=== PATIENT | female | born 1955 | race Caucasian/White ===

== ENCOUNTER 2016-11-23 08:25 | Emergency (ER) | payer MEDICAID, OTHER ==
[2016-11-23 08:36] VITALS: BP 162/97
[2016-11-23] MEDS ORDERED: Sodium Chloride 0.9% 10 ML Syringe FLUSH PRN (09:02)
--- NOTE | 2016-11-23 11:00 | EDM.PDOC ---
ED HPI GENERAL MEDICAL PROBLEM - General Chief Complaint: Abdominal Pain Stated Complaint: DIZZINESS/EAR PAIN/STOMACH PAIN Time Seen by Provider: 11/23/16 08:55 Source of Information: Reports: Patient History Limitations: Reports: No Limitations - History of Present Illness INITIAL COMMENTS - FREE TEXT/NARRATIVE: The patient presents with a few complaints. She has dizziness where she is a little off balance, left ear pain, epigastric abdominal pain and some anxiety. She also has some sinus pressure. She denies fever, chills, cough, congestion, chest pain or shortness of breath. She is wondering is she has a sinus infection. She has no dysuria or diarrhea. Onset: Gradual Duration: Week(s): Location: Reports: Head Quality: Reports: Pressure Severity: Mild Improves with: Reports: None Worsens with: Reports: None Associated Symptoms: Denies: Chest Pain, Fever/Chills, Nausea/Vomiting, Shortness of Breath Abdominal Pain Score (Numeric/FACES): 5 - Related Data Allergies Allergy/AdvReac Type Severity Reaction Status Date / Time benzocaine Allergy Not Listed Verified 11/23/16 08:36 cortisone Allergy Red Rash Verified 11/23/16 08:36 venom-honey bee Allergy Redness Verified 11/23/16 08:36 [bee venom (honey bee)] and Swelling Corepivicaine Allergy Not Listed Uncoded 06/19/15 14:57 isocaine 2% w/Levonordefien Allergy Not Listed Uncoded 06/19/15 14:57 1:20K Home Meds: Home Meds ALPRAZolam [Xanax] 0.5 mg PO DAILY PRN 06/19/15 [History] Dicyclomine [Bentyl] 20 mg PO DAILY PRN 06/19/15 [History] ALPRAZolam [Xanax] 0.5 mg PO QID PRN #20 tablet 11/23/16 [Rx] Meclizine [Antivert] 25 mg PO Q6H PRN #20 tablet 11/23/16 [Rx] Past Medical History HEENT History: Reports: Other (See Below) Other HEENT History: dental history Psychiatric History: Reports: Anxiety Social & Family History - Tobacco Use Smoking Status *Q: Never Smoker Years of Tobacco use: 40 Packs/Tins Daily: 0.8 - Recreational Drug Use Recreational Drug Use: No ED ROS GENERAL - Review of Systems Review Of Systems: See Below Constitutional: Reports: No Symptoms HEENT: Reports: Other (Sinus pressure) Respiratory: Reports: No Symptoms Cardiovascular: Reports: No Symptoms Endocrine: Reports: No Symptoms GI/Abdominal: Reports: Nausea. Denies: Abdominal Pain, Vomiting : Reports: No Symptoms Musculoskeletal: Reports: No Symptoms Skin: Reports: No Symptoms Neurological: Reports: Dizziness, Headache Psychiatric: Reports: Anxiety ED EXAM, GI/ABD - Physical Exam Exam: See Below Exam Limited By: No Limitations General Appearance: Alert, No Apparent Distress Ears: Normal External Exam Nose: Normal Inspection Head: Atraumatic, Normocephalic Neck: Normal Inspection Respiratory/Chest: No Respiratory Distress, Lungs Clear, Normal Breath Sounds Cardiovascular: Regular Rate, Rhythm, No Edema, No Murmur GI/Abdominal: Soft, Non-Tender, No Organomegaly, No Mass Back Exam: Normal Inspection Extremities: Normal Inspection Neurological: Alert, Oriented, No Motor/Sensory Deficits EKG INTERPRETATION EKG Date: 11/23/16 Time: 09:13 Rhythm: NSR Rate (beats/min): 63 [place]: normal P-wave: present QRS: normal ST-T: normal QT: normal EKG Interpretation Comments: LVH Course - Vital Signs Last Recorded V/S: Last Vital Signs Temp 98.2 F 11/23/16 08:32 Pulse 75 11/23/16 08:32 Resp 18 11/23/16 08:32 BP 162/97 H 11/23/16 08:32 Pulse Ox 98 11/23/16 08:32 - Orders/Labs/Meds Orders: Active Orders 24 hr Category Date Time Status Cardiac Monitoring [RC] . DIRECTED Care 11/23/16 09:02 Active EKG Documentation Completion [RC] STAT Care 11/23/16 09:03 Active Peripheral IV Care [RC] . DIRECTED Care 11/23/16 09:03 Active Head wo Cont [CT] Stat Exams 11/23/16 09:03 Taken Sodium Chloride 0.9% [Saline Flush] Med 11/23/16 09:02 Active 10 ml FLUSH ASDIRECTED PRN Peripheral IV Insertion Adult [OM.PC] Stat Oth 11/23/16 09:02 Ordered Medication Orders Sodium Chloride (Saline Flush) 10 ml FLUSH ASDIRECTED PRN PRN Reason: Keep Vein Open Last Admin: 11/23/16 09:18 Dose: 10 ml Labs: Laboratory Tests 11/23/16 11/23/16 11/23/16 Range/Units 09:16 09:16 09:40 WBC 5.80 (3.98-10.04) K/mm3 RBC 5.10 (3.98-5.22) M/mm3 Hgb 16.3 H (11.2-15.7) gm/L Hct 46.2 H (34.1-44.9) % MCV 90.6 (79.4-94.8) fl MCH 32.0 (25.6-32.2) pg MCHC 35.3 (32.2-35.5) g/dl RDW Std Deviation 39.5 (36.4-46.3) fL Plt Count 326 (182-369) K/mm3 MPV 8.9 L (9.4-12.3) fl Neut % (Auto) 66.4 (34.0-71.1) % Lymph % (Auto) 22.4 (19.3-51.7) % [place] % (Auto) 9.8 (4.7-12.5) % Eos % (Auto) 0.5 L (0.7-5.8) Baso % (Auto) 0.9 (0.1-1.2) % Neut # (Auto) 3.85 (1.56-6.13) K/mm3 Lymph # (Auto) 1.30 (1.18-3.74) K/mm3 Edwards # (Auto) 0.57 H (0.24-0.36) K/mm3 Eos # (Auto) 0.03 L (0.04-0.36) K/mm3 Baso # (Auto) 0.05 (0.01-0.08) K/mm3 Sodium 134 L (136-145) mEq/L Potassium 3.9 (3.5-5.1) mEq/L Chloride 101 (98-107) mEq/L Carbon Dioxide 26 (21-32) mEq/L Anion Gap 10.9 (5-15) BUN 5 L (7-18) mg/dL Creatinine 0.8 (0.55-1.02) mg/dL Est Cr Clr Drug Dosing TNP Estimated GFR (MDRD) > 60 (>60) mL/min BUN/Creatinine Ratio 6.3 L (14-18) Glucose 109 (80-115) mg/dL Calcium 8.8 (8.5-10.1) mg/dL Total Bilirubin 0.9 (0.2-1.0) mg/dL AST 29 (15-37) U/L ALT 38 (14-59) U/L Alkaline Phosphatase 83 (46-116) U/L Troponin I < 0.017 (0.00-0.056) ng/mL Total Protein 7.4 (6.4-8.2) g/dl Albumin 4.1 (3.4-5.0) g/dl Globulin 3.3 gm/dL Albumin/Globulin Ratio 1.2 (1-2) Lipase 182 (73-393) U/L Urine Color Yellow (Yellow) Urine Appearance Clear (Clear) Urine pH 6.5 (5.0-8.0) Ur Specific [place] 1.010 (1.005-1.030) Urine Protein Negative (Negative) Urine Glucose (UA) Negative (Negative) Urine Ketones Negative (Negative) Urine Occult Blood Negative (Negative) Urine Nitrite Negative (Negative) Urine Bilirubin Negative (Negative) Urine Urobilinogen 0.2 (0.2-1.0) Ur Leukocyte Esterase Negative (Negative) Urine RBC 0-5 (0-5) /hpf Urine WBC 0-5 (0-5) /hpf Ur Epithelial Cells 0-5 (0-5) /hpf Urine Bacteria Rare (FEW) /hpf Urine Mucus Not seen (FEW) /hpf Meds: Medications Generic Name Dose Route Start Last Admin Trade Name Freq PRN Reason Stop Dose Admin Sodium Chloride 10 ml 11/23/16 09:02 11/23/16 09:18 Saline Flush FLUSH 10 ml ASDIRECTED PRN Administration Keep Vein Open - Re-Assessments/Exams Free Text/Narrative Re-Assessment/Exam: 11/23/16 11:00 I ordered labs, EKG, and head CT. Her head CT looks good. Her EKG looks good. Her labs all look good. Her troponin is negative. I will discharge her home. Departure - Departure Time of Disposition: 11:05 Disposition: Home, Self-Care 01 Condition: good Clinical Impression: Dizziness, Anxiety Abdominal pain Qualifiers: Abdominal location: left upper quadrant Qualified Code(s): R10.12 - Left upper quadrant pain - Discharge Information Prescriptions: ALPRAZolam [Xanax] 0.5 mg PO QID PRN #20 tablet PRN Reason: Anxiety Meclizine [Antivert] 25 mg PO Q6H PRN #20 tablet PRN Reason: Dizziness Referrals: Jerson Rosales MD [Primary Care Provider] - 1 Week Forms: ED Department Discharge Additional Instructions: Take the antivert as needed for dizziness and xanax as needed for anxiety. Take some pepcid daily for 1 week. Please return if you are worse or follow up with Dr Soto. - My Orders Last 24 Hours: My Active Orders 11/23/16 09:02 Cardiac Monitoring [RC] . DIRECTED Sodium Chloride 0.9% [Saline Flush] 10 ml FLUSH ASDIRECTED PRN Peripheral IV Insertion Adult [OM.PC] Stat 11/23/16 09:03 EKG Documentation Completion [RC] STAT Peripheral IV Care [RC] . DIRECTED Head wo Cont [CT] Stat - Assessment/Plan Last 24 Hours: My Active Orders 11/23/16 09:02 Cardiac Monitoring [RC] . DIRECTED Sodium Chloride 0.9% [Saline Flush] 10 ml FLUSH ASDIRECTED PRN Peripheral IV Insertion Adult [OM.PC] Stat 11/23/16 09:03 EKG Documentation Completion [RC] STAT Peripheral IV Care [RC] . DIRECTED Head wo Cont [CT] Stat
--- NOTE | 2016-11-25 11:14 | CT ---
Head CT Technique: Multiple axial sections through the brain were obtained. Intravenous contrast was not utilized. Comparison: No previous intracranial imaging. Findings: Ventricles along with basal cisterns and sulci over the convexities are within normal limits for the patient's age. No abnormal parenchymal densities are seen. No evidence of intracranial hemorrhage. No midline shift or mass effect is seen. Bone window settings were reviewed which show the visualized sinuses to appear clear. No acute calvarial abnormality is identified. Impression: 1. Nothing acute is identified on noncontrast head CT study. Diagnostic code #1 Agree with preliminary report issued by [facility] ([facility] preliminary report dictated on 11/23/16, 11:06 AM Central Time)
== END 2016-11-23 11:15 | disposition home or self-care (01) ==
LOC: JD.ED 08:25
DX: R42 Dizziness and giddiness (principal); R10.12 Left upper quadrant pain; F41.9 Anxiety disorder, unspecified; Z79.899 Other long term (current) drug therapy; Z88.8 Allergy status to other drugs, medicaments and biological substances; Z91.030 Bee allergy status
CPT/HCPCS: 36415; 70450; 80053; 81001; 83690; 84484; 85025; 93005; 99284; J7050

== ENCOUNTER 2017-05-31 11:02 | Emergency (ER) | payer OTHER ==
[2017-05-31 11:12] VITALS: BP 178/98
--- NOTE | 2017-05-31 11:22 | EDM.PDOC ---
ED HPI GENERAL MEDICAL PROBLEM - General Chief Complaint: General Stated Complaint: COLD ALL THE TIME Time Seen by Provider: 05/31/17 11:21 Source of Information: Reports: Patient History Limitations: Reports: No Limitations - History of Present Illness INITIAL COMMENTS - FREE TEXT/NARRATIVE: Patient is here today for a couple of very vague complaints. Her #1 complaint is that she just feels cold. She states that she was evaluated for this history of clinic by Dr. Carver performed lab work. She was called with these results and informed that they were normal except her hemoglobin was mildly elevated. Patient does have untreated hypertension. She was initially started on amlodipine for this in November [address] Marcelo Jasmine felt that this made her legs swell. Since that time she has not taken any medication for her blood pressure. She was prescribed Hydrochlorothiazide by Dr. Soto and recommended by Dr. Carver that she needs to start this but patient has not started this. Patient's lower extremity swelling is concerning to her. She is also on numerous supplements from a company called [employer] including a green tea supplement, such as essential fatty acids, immune digestive support with probiotic as well as Florajen. 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 She is also trying to get her home more organized. She moved [place] briefly and now is back in [place]. She states it is quite uncomfortable for her to live here she is closer to her ex- and feels that she relies on a more than she would like to. She currently resides at [place], would like to move out of [facility] she feels that she picks up on the energy of those around her and feels there are too many sick people living there. Patient states that she is unsure if she should come to the emergency room for evaluation but would like to discuss to see if it's appropriate or not. Abdomen Pain Score (Numeric/FACES): 1 - Related Data Allergies Allergy/AdvReac Type Severity Reaction Status Date / Time benzocaine Allergy Not Listed Verified 11/23/16 08:36 cortisone Allergy Red Rash Verified 11/23/16 08:36 venom-honey bee Allergy Redness Verified 11/23/16 08:36 [bee venom (honey bee)] and Swelling Corepivicaine Allergy Not Listed Uncoded 06/19/15 14:57 isocaine 2% w/Levonordefien Allergy Not Listed Uncoded 06/19/15 14:57 1:20K Home Meds: Home Meds Dicyclomine [Bentyl] 20 mg PO DAILY PRN 06/19/15 [History] ALPRAZolam [Xanax] 0.5 mg PO QID PRN #20 tablet 11/23/16 [Rx] [facility] 1 tab PO QID 05/31/17 [History] Past Medical History HEENT History: Reports: Other (See Below) Other HEENT History: dental history Gastrointestinal History: Reports: Irritable Bowel Syndrome Psychiatric History: Reports: Anxiety Social & Family History - Tobacco Use Smoking Status *Q: Current Every Day Smoker Years of Tobacco use: 30 Packs/Tins Daily: 0.5 - Caffeine Use Caffeine Use: Reports: Coffee, Tea - Recreational Drug Use Recreational Drug Use: No ED ROS GENERAL - Review of Systems Review Of Systems: See Below Constitutional: Denies: Fever, Chills, Weakness, Fatigue, Decreased Appetite, Weight Loss HEENT: Reports: No Symptoms Respiratory: Reports: No Symptoms Cardiovascular: Reports: Blood Pressure Problem, Edema. Denies: Chest Pain, Claudication, Dyspnea on Exertion, Palpitations, PND, Syncope Endocrine: Reports: No Symptoms GI/Abdominal: Reports: Abdominal Pain (Intermittent abdominal cramping due to her IBS.). Denies: Black Stool, Bloody Stool, Constipation, Diarrhea, Decreased Appetite, Nausea : Reports: No Symptoms Musculoskeletal: Reports: Back Pain (Chronic, sees Dr. Lazar/Chiropractor for this.) Skin: Reports: No Symptoms Neurological: Reports: No Symptoms Psychiatric: Reports: Anxiety Hematologic/Lymphatic: Reports: No Symptoms ED EXAM, GENERAL - Physical Exam Exam: See Below Exam Limited By: No Limitations General Appearance: Alert, WD/WN, Anxious Eye Exam: Bilateral Eye: PERRL Head: Atraumatic, Normocephalic Neck: Normal Inspection, Non-Tender, Full Range of Motion. No: Lymphadenopathy (L), Lymphadenopathy (R) Respiratory/Chest: No Respiratory Distress, Lungs Clear, Normal Breath Sounds, No Accessory Muscle Use Cardiovascular: Normal Peripheral Pulses, Regular Rate, Rhythm, No Murmur, No Rub, Other (1+ pitting edema to bilateral ankles) Peripheral Pulses: 2+: Carotid (L), Carotid (R), Radial (L), Radial (R), Posterior Tibial (L), Posterior Tibial (R), Dorsalis Pedis (L), Dorsalis Pedis ( R) GI/Abdominal: Normal Bowel Sounds, Soft, Non-Tender Extremities: Normal Inspection, Normal Range of Motion, Normal Capillary Refill Neurological: Alert, Oriented Psychiatric: Normal Affect, Anxious Skin Exam: Warm, Intact Course - Vital Signs Last Recorded V/S: Last Vital Signs Temp 97.4 F 05/31/17 11:11 Pulse 73 05/31/17 11:11 Resp 20 05/31/17 11:11 BP 178/98 H 05/31/17 11:11 Pulse Ox 100 05/31/17 11:11 - Re-Assessments/Exams Free Text/Narrative Re-Assessment/Exam: Patient is very anxious throughout exam. She notes that she has been on anxiety medication previously but she did not like the way made her feel. Discussed using something like lavender essential oils and her infuser to help with this as well. She does have mild lower extremity swelling, patient is quite sedentary so we discussed that walking would help this as well. It will also help with her blood pressure. Patient was given a prescription for compression stockings to wear daily as well. She is advised to elevate her legs 30 minutes throughout the day above her heart. Patient's blood pressure is elevated, she has not been taking her medication. I advised her that she needs to resume her hydrochlorothiazide 25 mg every single day in the morning. I did advise her that make her urinate more frequently. Explained to patient that this would help both with her lower extremity swelling as well as her blood pressure. She has a follow-up appointment scheduled with Dr. Soto in a couple weeks, she will follow up with him sooner if needed. She has fairly healthy diet, did advise her she may need to increase her portions if she desires to gain weight. Unclear cause for her feeling cold. It has been colder outdoors and she does go out to smoke. Pulses all 2+, skin warm, pink and dry. Advised smoking cessation and increased activity would help with this. Also quite thin so weight gain could help. Reviewed labwork from clinic yesterday, TSH/CMP normal. Hgb mildly increased at 16.3, she will work on smoking cessation and FU with PCP. 05/31/17 12:04 Departure - Departure Time of Disposition: 11:49 Disposition: Home, Self-Care 01 Condition: Good Clinical Impression: Lower extremity edema, Anxiety, Sensation of feeling cold Hypertension Qualifiers: Hypertension type: essential hypertension Qualified Code(s): I10 - Essential ( primary) hypertension - Discharge Information Instructions: Edema, Hypertension, [id number] Referrals: Romeo Carver [Primary Care Provider] - Forms: ED Department Discharge Additional Instructions: Wear compression stockings daily during the day, take off at night . You can pick these up with the prescription we gave you at [facility] [place]. Try to walk 30 minutes daily. Resume your hydrochlorothiazide 25mg daily. Consider lavender in your essential oil infuser, it will help with the anxiety. Work on smoking cessation. You can get extra help with this through [place] Quits 1.800.QUIT.NOW ( ) Keep your follow-up with Dr Soto. You may move this earlier or return to ER if needed.
== END 2017-05-31 12:00 | disposition home or self-care (01) ==
LOC: JD.ED 11:02
DX: I10 Essential (primary) hypertension (principal); R60.0 Localized edema; F41.9 Anxiety disorder, unspecified; Z88.8 Allergy status to other drugs, medicaments and biological substances; Z79.899 Other long term (current) drug therapy; F17.210 Nicotine dependence, cigarettes, uncomplicated
CPT/HCPCS: 99283

== ENCOUNTER 2017-06-25 15:14 | Emergency (ER) | payer OTHER ==
[2017-06-25 15:25] VITALS: BP 167/95
--- NOTE | 2017-06-25 15:54 | EDM.PDOC ---
ED HPI GENERAL MEDICAL PROBLEM - General Chief Complaint: Abdominal Pain Stated Complaint: STOMACH PAIN Time Seen by Provider: 06/25/17 15:43 Source of Information: Reports: Patient History Limitations: Reports: No Limitations - History of Present Illness INITIAL COMMENTS - FREE TEXT/NARRATIVE: Patient is here today for evaluation of lower abdominal pain. She states that she has had this intermittently in the past but it has been worse over the past few weeks. She states that was rather severe this morning and did improve with passing flatus and having a bowel movement. Patient states her pain is very mild and feels more like bloating currently. She does have a previous diagnosis of IBS. Bilateral Lower Abdomen Pain Score (Numeric/FACES): 8 - Related Data Allergies Allergy/AdvReac Type Severity Reaction Status Date / Time amlodipine Allergy Swelling Verified 06/25/17 15:30 benzocaine Allergy Not Listed Verified 05/31/17 12:36 cortisone Allergy Red Rash Verified 05/31/17 12:36 venom-honey bee Allergy Redness Verified 05/31/17 12:36 [bee venom (honey bee)] and Swelling Corepivicaine Allergy Not Listed Uncoded 05/31/17 12:36 isocaine 2% w/Levonordefien Allergy Not Listed Uncoded 05/31/17 12:36 1:20K Home Meds: Home Meds Dicyclomine [Bentyl] 20 mg PO DAILY PRN 06/19/15 [History] ALPRAZolam [Xanax] 0.5 mg PO QID PRN #20 tablet 11/23/16 [Rx] [facility] 1 tab PO QID 05/31/17 [History] Past Medical History HEENT History: Reports: Other (See Below) Other HEENT History: dental history Gastrointestinal History: Reports: Irritable Bowel Syndrome 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 (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) Other OB/BYN History: uterian prolapse Psychiatric History: Reports: Anxiety Oncologic (Cancer) History: Reports: Other (See Below) Other Oncologic 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 Denies: Hematemesis, Hematochezia, Vomiting : Reports: No Symptoms Musculoskeletal: Reports: No Symptoms Skin: Reports: No Symptoms Neurological: Reports: No Symptoms Psychiatric: Reports: Anxiety ED EXAM, GI/ABD - Physical Exam Exam: See Below Exam Limited By: No Limitations General Appearance: Alert, WD/WN, Anxious Nose: Normal Inspection, Normal Mucosa Throat/Mouth: Normal Inspection, Normal Lips, Normal Oropharynx Head: Atraumatic, Normocephalic Respiratory/Chest: No Respiratory Distress, Lungs Clear, Normal Breath Sounds Cardiovascular: Normal Peripheral Pulses, Regular Rate, Rhythm, No Murmur GI/Abdominal Exam: Normal Bowel Sounds, Soft, Tender (Mild lower abdominal tenderness) Neurological: Alert, Oriented Psychiatric: Normal Affect, Anxious (Mild). No: Depressed Mood Skin Exam: Warm, Dry Course - Vital Signs Last Recorded V/S: Last Vital Signs Temp 97.7 F 06/25/17 15:22 Pulse 78 06/25/17 15:22 Resp 18 06/25/17 15:22 BP 167/95 H 06/25/17 15:22 Pulse Ox 100 06/25/17 15:22 - Orders/Labs/Meds Orders: Active Orders 24 hr Category Date Time Status Abdomen 2V AP Flat Upright [CR] Stat Exams 06/25/17 16:32 Taken UA W/MICROSCOPIC [URIN] Stat Lab 06/25/17 16:31 Uncollected Labs: Laboratory Tests 06/25/17 06/25/17 Range/Units 16:52 16:52 WBC 6.89 (3.98-10.04) K/mm3 RBC 5.24 H (3.98-5.22) M/mm3 Hgb 17.2 H (11.2-15.7) gm/L Hct 48.1 H (34.1-44.9) % MCV 91.8 (79.4-94.8) fl MCH 32.8 H (25.6-32.2) pg MCHC 35.8 H (32.2-35.5) g/dl RDW Std Deviation 40.5 (36.4-46.3) fL Plt Count 336 (182-369) K/mm3 MPV 8.7 L (9.4-12.3) fl Neutrophils % (Manual) 67 H (40-60) % Band Neutrophils % 0 (0-10) % Lymphocytes % (Manual) 27 (20-40) % Atypical Lymphs % 0 % Monocytes % (Manual) 4 (2-10) % Eosinophils % (Manual) 0 L (0.7-5.8) % Basophils % (Manual) 2 H (0.1-1.2) Platelet Estimate Adequate RBC Morph Comment Normal Sodium 135 L (136-145) mEq/L Potassium 4.1 (3.5-5.1) mEq/L Chloride 98 (98-107) mEq/L Carbon Dioxide 30 (21-32) mEq/L Anion Gap 11.1 (5-15) BUN 8 (7-18) mg/dL Creatinine 0.8 (0.55-1.02) mg/dL Est Cr Clr Drug Dosing 46.39 mL/min Estimated GFR (MDRD) > 60 (>60) mL/min BUN/Creatinine Ratio 10.0 L (14-18) Glucose 100 (80-115) mg/dL Calcium 10.1 (8.5-10.1) mg/dL Total Bilirubin 1.0 (0.2-1.0) mg/dL AST 25 (15-37) U/L ALT 32 (14-59) U/L Alkaline Phosphatase 81 (46-116) U/L C-Reactive Protein < 0.2 (<1.0) mg/dL Total Protein 7.8 (6.4-8.2) g/dl Albumin 4.5 (3.4-5.0) g/dl Globulin 3.3 gm/dL Albumin/Globulin Ratio 1.4 (1-2) Lipase 167 (73-393) U/L Meds: Medications Discontinued Medications Generic Name Dose Route Start Last Admin Trade Name Freq PRN Reason Stop Dose Admin Al Hydroxide/Mg Hydroxide 30 0 ml 06/25/17 16:32 ml/ Lidocaine HCl 15 ml PO 06/25/17 16:33 ONETIME ONE - Re-Assessments/Exams Free Text/Narrative Re-Assessment/Exam: Patient having no symptoms whatsoever. WBC 6890 with 67% neutrophils and no bands. CRP <0.2. Patient is a very large amount of gas demonstrated on x-ray, she has been passing flatus and had a bowel movement today. Clinically there are not signs of obstruction. Will discharge patient, she will take Gas-X and follow-up with her PCP in the clinic or certainly return to the ER if needed. I did advise patient that she does need to work on a more healthy diet and back off on the numerous amounts of tea she is drinking daily. 06/25/17 17:55 Departure - Departure Time of Disposition: 17:57 Disposition: Home, Self-Care 01 Condition: Good Clinical Impression: Flatulence, eructation and gas pain Abdominal pain Qualifiers: Abdominal location: left upper quadrant Qualified Code(s): R10.12 - Left upper quadrant pain - Discharge Information Referrals: Romeo Carver [Primary Care Provider] - Forms: ED Department Discharge Additional Instructions: I suspect the majority of your symptoms are due to gas. I recommend that you take Gas-X and do the regular food and not drink so much tea. Follow-up with your PCP this week. Dr Carver [phone] - My Orders Last 24 Hours: My Active Orders 06/25/17 16:31 UA W/MICROSCOPIC [URIN] Stat 06/25/17 16:32 Abdomen 2V AP Flat Upright [CR] Stat - Assessment/Plan Last 24 Hours: My Active Orders 06/25/17 16:31 UA W/MICROSCOPIC [URIN] Stat 06/25/17 16:32 Abdomen 2V AP Flat Upright [CR] Stat
[2017-06-25] MEDS ORDERED: Alum Hydrox/Mag Hydrox/Simeth 30 ML, Lidocaine 2% 15 ML PO ONE ×2 (16:32)
--- NOTE | 2017-06-26 07:31 | CR ---
Abdomen: Supine and upright views of the abdomen were obtained. Comparison: No previous study. Scattered gas and stool is seen throughout colon. Bowel gas pattern is otherwise unremarkable. No free air is seen. No abnormal calcifications or soft tissue abnormality is seen. Bony structures are unremarkable. Impression: 1. Mild increased gas and stool within the colon which is felt to be incidental. 2. Two-view abdominal x-ray is otherwise unremarkable. Diagnostic code #2
== END 2017-06-25 18:30 | disposition home or self-care (01) ==
LOC: JD.ED 15:14
DX: R10.31 Right lower quadrant pain (principal); R10.32 Left lower quadrant pain; R14.3 Flatulence; R14.2 Eructation; R14.1 Gas pain; F17.210 Nicotine dependence, cigarettes, uncomplicated; Z88.8 Allergy status to other drugs, medicaments and biological substances; Z91.030 Bee allergy status; Z79.899 Other long term (current) drug therapy
CPT/HCPCS: 36415; 74019; 74019-26; 80053; 83690; 85025; 86140; 99283; 99284

== ENCOUNTER 2017-10-08 19:32 | Emergency (ER) | payer OTHER ==
[2017-10-08 19:43] VITALS: BP 183/93
--- NOTE | 2017-10-08 20:35 | CT ---
Head CT Technique: Multiple axial sections through the brain were obtained. Intravenous contrast was utilized. Comparison: Prior head CT study of 11/23/16. Findings: Ventricles along with basal cisterns and sulci over the convexities appear within normal limits for the patient's age. Low-density area is noted within the right basal ganglia compatible with old lacunar infarct. No other abnormal parenchymal densities are seen. No evidence of intracranial hemorrhage. No midline shift or mass effect is seen. Slight atherosclerotic change is noted within the carotid siphon. Bone window settings shows the visualized sinuses to appear clear. No acute calvarial abnormality is seen. Impression: 1. Slight senescent change. 2. No acute intracranial abnormality is seen. Diagnostic code #2
--- NOTE | 2017-10-08 21:22 | EDM.PDOC ---
ED HPI GENERAL MEDICAL PROBLEM - General Chief Complaint: Headache Stated Complaint: HEADACHE Time Seen by Provider: 10/08/17 19:45 Source of Information: Reports: Patient History Limitations: Reports: No Limitations - History of Present Illness INITIAL COMMENTS - FREE TEXT/NARRATIVE: The patient presents with a frontal headache that radiates to the back of her head an neck. This has been going on for a couple of days. She has migraines but she says this is different. She has no fever or chills. She has some congestion. She is wondering if she has some sinus problems. She has no numbness, weakness, blurred vision or double vision. She went to the walk in clinic and the sent her here for a CT. Onset: Gradual Duration: Day(s): Location: Reports: Head Quality: Reports: Ache Severity: Moderate Improves with: Reports: None Worsens with: Reports: None Associated Symptoms: Reports: Headaches. 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 ENGINEER: Reports: Acetaminophen, NSAIDS Headache Pain Score (Numeric/FACES): 8 - Related Data Allergies Allergy/AdvReac Type Severity Reaction Status Date / Time amlodipine Allergy Swelling Verified 10/08/17 19:43 benzocaine Allergy Not Listed Verified 10/08/17 19:43 cortisone Allergy Red Rash Verified 10/08/17 19:43 venom-honey bee Allergy Redness Verified 10/08/17 19:43 [bee venom (honey bee)] and Swelling Corepivicaine Allergy Not Listed Uncoded 05/31/17 12:36 isocaine 2% w/Levonordefien Allergy Not Listed Uncoded 05/31/17 12:36 1:20K Home Meds: Home Meds ALPRAZolam [Xanax] 0.5 mg PO QID PRN #20 tablet 11/23/16 [Rx] [facility] 1 tab PO QID 05/31/17 [History] Past Medical History HEENT History: Reports: Other (See Below) Other HEENT History: dental history Gastrointestinal History: Reports: Irritable Bowel Syndrome 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 (See Below) Other OB/BYN History: uterian prolapse Psychiatric History: Reports: Anxiety Oncologic (Cancer) History: Reports: Other (See Below) Other Oncologic History: benign tumors from breasts removed Social & Family History - Tobacco Use Smoking Status *Q: Current Every Day Smoker Years of Tobacco use: 59 Packs/Tins Daily: 0.5 Used Tobacco, but Quit: No Second Hand Smoke Exposure: No - Caffeine Use Caffeine Use: Reports: Tea - Recreational Drug Use Recreational Drug Use: No ED ROS GENERAL - Review of Systems Review Of Systems: See Below Constitutional: Reports: No Symptoms HEENT: Reports: No Symptoms Respiratory: Reports: No Symptoms Cardiovascular: Reports: No Symptoms Endocrine: Reports: No Symptoms GI/Abdominal: Reports: No Symptoms : Reports: No Symptoms Musculoskeletal: Reports: Neck Pain Skin: Reports: No Symptoms - Physical Exam Exam: See Below Exam Limited By: No Limitations General Appearance: Alert, No Apparent Distress Ears: Normal External Exam Nose: Normal Inspection Throat/Mouth: Normal Inspection Head Exam: Atraumatic, Normocephalic Neck: Normal Inspection, Supple, Non-Tender Respiratory/Chest: No Respiratory Distress, Lungs Clear, Normal Breath Sounds Cardiovascular: Regular Rate, Rhythm, No Edema, No Murmur GI/Abdominal: Soft, Non-Tender, No Organomegaly Neuro Exam (Abbreviated): Alert, Oriented, No Motor/Sensory Deficits Course - Vital Signs Last Recorded V/S: Last Vital Signs Temp 97.2 F 10/08/17 19:41 Pulse 73 10/08/17 19:41 Resp 16 10/08/17 19:41 BP 183/93 H 10/08/17 19:41 Pulse Ox 99 10/08/17 19:41 - Re-Assessments/Exams Free Text/Narrative Re-Assessment/Exam: 10/08/17 21:[address] of her head and there was nothing acute. I will discharge her home. Departure - Departure Time of Disposition: 21:25 Disposition: Home, Self-Care 01 Condition: Good Clinical Impression: Neck pain Headache Qualifiers: Headache type: unspecified Headache chronicity pattern: acute headache Intractability: not intractable Qualified Code(s): R51 - Headache - Discharge Information Referrals: Jerson Rosales MD [Primary Care Provider] - 1 Week Additional Instructions: Take aspirin, motrin or tylenol for the headache. Follow up with Dr Soto in 1 week. You may try some claritin. Please return if you are worse.
== END 2017-10-08 21:30 | disposition home or self-care (01) ==
LOC: JD.ED 19:32
DX: M54.2 Cervicalgia (principal); R51 Headache; F17.210 Nicotine dependence, cigarettes, uncomplicated; Z88.8 Allergy status to other drugs, medicaments and biological substances; Z91.030 Bee allergy status
CPT/HCPCS: 70450; 70450-26; 99284-25

== ENCOUNTER 2017-11-08 18:17 | Emergency (ER) | payer OTHER ==
[2017-11-08 18:28] VITALS: BP 174/97
--- NOTE | 2017-11-08 19:12 | EDM.PDOCBH ---
ED HPI GENERAL MEDICAL PROBLEM - General Chief Complaint: Behavioral/Psych Stated Complaint: ANXIETY/STRESS X 3 WKS Time Seen by Provider: 11/08/17 18:41 Source of Information: Reports: Patient History Limitations: Reports: No Limitations - History of Present Illness INITIAL COMMENTS - FREE TEXT/NARRATIVE: Patient is a 61-year-old female who presents to the ED complaining of increased anxiety and stress over the past 3 weeks. Patient states she's has a long history of anxiety and as of approximately 2 weeks ago stopped taking a over-the -counter herbal supplement called prolent. States since then the anxiety has continued unrelieved. Pharmacist believes the increased anxiety is related to stopping this supplement. She has been seen by her primary doctor and prescribed Prozac to which she has not started taking yet. Patient states she's been more stressed with work recently. Her family is not very supportive. She is centered around a lot of people that are ill at the place where she resides. She has taken Xanax today with minimal relief. Patient is very calm with speaking with her does not appear anxious. She was evaluated at the walk-in clinic with no treatment and/or advice. - Related Data Allergies Allergy/AdvReac Type Severity Reaction Status Date / Time amlodipine Allergy Swelling Verified 10/08/17 19:43 benzocaine Allergy Not Listed Verified 10/08/17 19:43 cortisone Allergy Red Rash Verified 10/08/17 19:43 venom-honey bee Allergy Redness Verified 10/08/17 19:43 [bee venom (honey bee)] and Swelling Corepivicaine Allergy Not Listed Uncoded 05/31/17 12:36 isocaine 2% w/Levonordefien Allergy Not Listed Uncoded 05/31/17 12:36 1:20K Home Meds: Home Meds [facility] 1 tab PO QID 05/31/17 [History] ALPRAZolam [Xanax] 0.5 mg PO BID PRN 11/08/17 [History] Past Medical History HEENT History: Reports: Other (See Below) Other HEENT History: dental history Cardiovascular History: Reports: Heart Murmur Gastrointestinal History: Reports: Irritable Bowel Syndrome 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 (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) Other OB/BYN History: uterian prolapse Psychiatric History: Reports: Anxiety, Depression Oncologic (Cancer) History: Reports: Other (See Below) Other Oncologic History: benign tumors from breasts removed Social & Family History - Family History Family Medical History: Noncontributory - Tobacco Use Smoking Status *Q: Current Every Day Smoker Years of Tobacco use: 40 Packs/Tins Daily: 0.5 - Caffeine Use Caffeine Use: Reports: Tea - Recreational Drug Use Recreational Drug Use: No ED ROS GENERAL - Review of Systems Review Of Systems: See Below Respiratory: Reports: No Symptoms Cardiovascular: Reports: No Symptoms GI/Abdominal: Reports: No Symptoms Neurological: Reports: No Symptoms Psychiatric: Reports: Anxiety. Denies: Agitation, Confusion, Depression, Hallucinations, Homicidal Ideation, Mood Lability, Suicidal Ideation ED EXAM, BEHAVIORAL HEALTH - Physical Exam Exam: See Below Exam Limited By: No Limitations General Appearance: Alert, WD/WN, No Apparent Distress Eye Exam: Bilateral Eye: Normal Inspection Ears: Hearing Grossly Normal Nose: Normal Inspection Throat/Mouth: Normal Voice, No Airway Compromise Neck: Normal Inspection, Supple Respiratory/Chest: No Respiratory Distress, No Accessory Muscle Use Cardiovascular: Normal Peripheral Pulses, Regular Rate, Rhythm Neurological: Alert, Normal Mood/Affect, CN II-XII Intact, Normal Cognition, No Motor/Sensory Deficits, Oriented x 3 Psychiatric: Alert, Normal Affect, Normal Cognition, Normal Mood, Oriented. No : Depressed Mood, Flat Affect, Incoherent, Restless, Tearful, Agitated, Disoriented, Inattentive, Non-Communicative, Poor Eye Contact, Uncooperative, Withdrawn, Flight of Ideas, Homicidal Thoughts, Phobic, Quaker Delusions, Suicidal Plan, Suicidal Thoughts, Tangential Thoughts, Auditory Hallucinations, Visual Hallucinations, Grandiose Thoughts, Pressured Speech, Paranoid Thoughts, Threatening Behavior Skin Exam: Warm, Dry, Intact, Normal color, No rash COURSE, BEHAVIORAL HEALTH COMP - Course Vital Signs: Last Vital Signs Temp 98.7 F 11/08/17 18:24 Pulse 72 11/08/17 18:24 Resp 16 11/08/17 18:24 BP 174/97 H 11/08/17 18:24 Pulse Ox 98 11/08/17 18:24 Re-Assessment/Re-Exam: No treatment required at this time. She has taken Xanax prior to arrival. In addition she'll start taking the Prozac as prescribed. She is aware this medication will take time to reach its therapeutic effect. She will follow-up with her PCP this coming week for reevaluation. She will not take the prolent. Discharge instructions as documented. Departure - Departure Time of Disposition: 19:10 Disposition: Home, Self-Care 01 Condition: Good Clinical Impression: Anxiety - Discharge Information Instructions: Living With Anxiety Referrals: Jerson Rosales MD [Primary Care Provider] - Forms: ED Department Discharge Additional Instructions: As discussed will have you start taking the Prozac as prescribed. Beware this medication will take some time to reach his therapeutic effect. Please see her primary care provider this coming week for reevaluation. Call and make an appointment. May take the Xanax as prescribed for intermittent episodes of increased anxiety. Get get out and do things that she enjoyed doing. Center yourself around good people. Return to the ED if you develop any new or worsening symptoms.
== END 2017-11-08 19:15 | disposition home or self-care (01) ==
LOC: JD.ED 18:17
DX: F41.9 Anxiety disorder, unspecified (principal); F17.210 Nicotine dependence, cigarettes, uncomplicated; Z88.8 Allergy status to other drugs, medicaments and biological substances; Z91.030 Bee allergy status
CPT/HCPCS: 99283

== ENCOUNTER 2017-11-22 08:59 | Emergency (ER) | payer OTHER ==
--- NOTE | 2017-11-22 09:37 | EDM.PDOC ---
ED HPI GENERAL MEDICAL PROBLEM - General Chief Complaint: Abdominal Pain Stated Complaint: ABDOMINAL PAIN Time Seen by Provider: 11/22/17 09:18 Source of Information: Reports: Patient History Limitations: Reports: No Limitations - History of Present Illness INITIAL COMMENTS - FREE TEXT/NARRATIVE: The patient presents with epigastric pain. This started at 5am when she woke up. She has no nausea or vomiting. She has no diarrhea or dysuria. She has no fever, chills, cough, congestion, or runny nose. She did have some chest pain but no shortness of breath. She still has her gallbladder and appendix. Onset: Gradual Duration: Hour(s): (5am) Location: Reports: Abdomen Quality: Reports: Sharp Severity: Mild Improves with: Reports: None Worsens with: Reports: None Associated Symptoms: Reports: Chest Pain. Denies: Cough, Fever/Chills, Nausea/ Vomiting, Shortness of Breath Treatments MANAGER DATA CENTER: Reports: Other (see below) Other Treatments MANAGER DATA CENTER: vinegar, coconut oil, microlactin,prolent (from [facility]) Middle Abdomen Pain Score (Numeric/FACES): 10 - Related Data Allergies Allergy/AdvReac Type Severity Reaction Status Date / Time amlodipine Allergy Swelling Verified 11/22/17 09:14 benzocaine Allergy Not Listed Verified 11/22/17 09:14 cortisone Allergy Red Rash Verified 11/22/17 09:14 venom-honey bee Allergy Redness Verified 11/22/17 09:14 [bee venom (honey bee)] and Swelling Corepivicaine Allergy Not Listed Uncoded 11/22/17 09:14 isocaine 2% w/Levonordefien Allergy Not Listed Uncoded 11/22/17 09:14 1:20K Home Meds: Home Meds [facility] 1 tab PO QID 05/31/17 [History] Past Medical History HEENT History: Reports: Other (See Below) Other HEENT History: dental history Cardiovascular History: Reports: Heart Murmur Gastrointestinal History: Reports: Irritable Bowel Syndrome 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) Other OB/BYN History: uterian prolapse Psychiatric History: Reports: Anxiety, Depression Oncologic (Cancer) History: Reports: Other (See Below) Other Oncologic History: benign tumors from breasts removed Social & Family History - Family History Family Medical History: Noncontributory - Tobacco Use Smoking Status *Q: Current Every Day Smoker Years of Tobacco use: 20 Packs/Tins Daily: 0.5 Used Tobacco, but Quit: No Second Hand Smoke Exposure: No - Caffeine Use Caffeine Use: Reports: Coffee, Tea - Recreational Drug Use Recreational Drug Use: No ED ROS GENERAL - Review of Systems Review Of Systems: See Below Constitutional: Reports: No Symptoms HEENT: Reports: No Symptoms Respiratory: Reports: No Symptoms Cardiovascular: Reports: Chest Pain Endocrine: Reports: No Symptoms GI/Abdominal: Reports: Abdominal Pain. Denies: Diarrhea, Nausea, Vomiting : Reports: No Symptoms Musculoskeletal: Reports: No Symptoms ED EXAM, GI/ABD - Physical Exam Exam: See Below Exam Limited By: No Limitations General Appearance: Alert, No Apparent Distress Ears: Normal External Exam Nose: Normal Inspection Head: Atraumatic, Normocephalic Neck: Normal Inspection Respiratory/Chest: No Respiratory Distress, Lungs Clear, Normal Breath Sounds Cardiovascular: Regular Rate, Rhythm, No Edema, No Murmur GI/Abdominal Exam: Soft, Non-Tender, No Organomegaly, No Mass Back Exam: Normal Inspection Extremities: Normal Inspection Neurological: Alert, Oriented, No Motor/Sensory Deficits Course - Vital Signs Last Recorded V/S: Last Vital Signs Temp 99.0 F 11/22/17 09:05 Pulse 81 11/22/17 09:05 Resp 18 11/22/17 09:05 BP 163/92 H 11/22/17 09:05 Pulse Ox 97 11/22/17 09:05 - Orders/Labs/Meds Orders: Active Orders 24 hr Category Date Time Status Abdomen 1V Upright [CR] Stat Exams 11/22/17 09:27 Taken UA W/MICROSCOPIC [URIN] Stat Lab 11/22/17 10:02 Ordered Labs: Laboratory Tests 11/22/17 11/22/17 11/22/17 Range/Units 09:40 09:40 09:40 WBC 7.49 (3.98-10.04) K/mm3 RBC 4.82 (3.98-5.22) M/mm3 Hgb 15.5 (11.2-15.7) gm/L Hct 44.3 (34.1-44.9) % MCV 91.9 (79.4-94.8) fl MCH 32.2 (25.6-32.2) pg MCHC 35.0 (32.2-35.5) g/dl RDW Std Deviation 41.2 (36.4-46.3) fL Plt Count 342 (182-369) K/mm3 MPV 8.5 L (9.4-12.3) fl Neut % (Auto) 74.3 H (34.0-71.1) % Lymph % (Auto) 17.8 L (19.3-51.7) % [place] % (Auto) 6.8 (4.7-12.5) % Eos % (Auto) 0.3 L (0.7-5.8) Baso % (Auto) 0.7 (0.1-1.2) % Neut # (Auto) 5.57 (1.56-6.13) K/mm3 Lymph # (Auto) 1.33 (1.18-3.74) K/mm3 [place]vier # (Auto) 0.51 H (0.24-0.36) K/mm3 Eos # (Auto) 0.02 L (0.04-0.36) K/mm3 Baso # (Auto) 0.05 (0.01-0.08) K/mm3 Sodium 138 (136-145) mEq/L Potassium 4.0 (3.5-5.1) mEq/L Chloride 103 (98-107) mEq/L Carbon Dioxide 26 (21-32) mEq/L Anion Gap 13.0 (5-15) BUN 10 (7-18) mg/dL Creatinine 0.9 (0.55-1.02) mg/dL Est Cr Clr Drug Dosing 48.10 mL/min Estimated GFR (MDRD) > 60 (>60) mL/min BUN/Creatinine Ratio 11.1 L (14-18) Glucose 121 H (80-115) mg/dL Calcium 8.9 (8.5-10.1) mg/dL Total Bilirubin 0.5 (0.2-1.0) mg/dL AST 14 L (15-37) U/L ALT 32 (14-59) U/L Alkaline Phosphatase 71 (46-116) U/L Troponin I 0.000 (0.00-0.056) ng/mL Total Protein 6.4 (6.4-8.2) g/dl Albumin 3.6 (3.4-5.0) g/dl Globulin 2.8 gm/dL Albumin/Globulin Ratio 1.3 (1-2) Lipase 128 (73-393) U/L Urine Color (Yellow) Urine Appearance (Clear) Urine pH (5.0-8.0) Ur Specific [place] (1.005-1.030) Urine Protein (Negative) Urine Glucose (UA) (Negative) Urine Ketones (Negative) Urine Occult Blood (Negative) Urine Nitrite (Negative) Urine Bilirubin (Negative) Urine Urobilinogen (0.2-1.0) Ur Leukocyte Esterase (Negative) Urine RBC (0-5) /hpf Urine WBC (0-5) /hpf Ur Epithelial Cells (0-5) /hpf Urine Bacteria (FEW) /hpf Urine Mucus (FEW) /hpf 11/22/17 Range/Units 10:02 WBC (3.98-10.04) K/mm3 RBC (3.98-5.22) M/mm3 Hgb (11.2-15.7) gm/L Hct (34.1-44.9) % MCV (79.4-94.8) fl MCH (25.6-32.2) pg MCHC (32.2-35.5) g/dl RDW Std Deviation (36.4-46.3) fL Plt Count (182-369) K/mm3 MPV (9.4-12.3) fl Neut % (Auto) (34.0-71.1) % Lymph % (Auto) (19.3-51.7) % Sevier % (Auto) (4.7-12.5) % Eos % (Auto) (0.7-5.8) Baso % (Auto) (0.1-1.2) % Neut # (Auto) (1.56-6.13) K/mm3 Lymph # (Auto) (1.18-3.74) K/mm3 [place]vier # (Auto) (0.24-0.36) K/mm3 Eos # (Auto) (0.04-0.36) K/mm3 Baso # (Auto) (0.01-0.08) K/mm3 Sodium (136-145) mEq/L Potassium (3.5-5.1) mEq/L Chloride (98-107) mEq/L Carbon Dioxide (21-32) mEq/L Anion Gap (5-15) BUN (7-18) mg/dL Creatinine (0.55-1.02) mg/dL Est Cr Clr Drug Dosing mL/min Estimated GFR (MDRD) (>60) mL/min BUN/Creatinine Ratio (14-18) Glucose (80-115) mg/dL Calcium (8.5-10.1) mg/dL Total Bilirubin (0.2-1.0) mg/dL AST (15-37) U/L ALT (14-59) U/L Alkaline Phosphatase (46-116) U/L Troponin I (0.00-0.056) ng/mL Total Protein (6.4-8.2) g/dl Albumin (3.4-5.0) g/dl Globulin gm/dL Albumin/Globulin Ratio (1-2) Lipase (73-393) U/L Urine Color Yellow (Yellow) Urine Appearance Clear (Clear) Urine pH 7.0 (5.0-8.0) Ur Specific [place] 1.020 (1.005-1.030) Urine Protein Negative (Negative) Urine Glucose (UA) Negative (Negative) Urine Ketones Negative (Negative) Urine Occult Blood Negative (Negative) Urine Nitrite Negative (Negative) Urine Bilirubin Negative (Negative) Urine Urobilinogen 0.2 (0.2-1.0) Ur Leukocyte Esterase Negative (Negative) Urine RBC 0-5 (0-5) /hpf Urine WBC Not seen (0-5) /hpf Ur Epithelial Cells Not seen (0-5) /hpf Urine Bacteria Rare (FEW) /hpf Urine Mucus Not seen (FEW) /hpf - Re-Assessments/Exams Free Text/Narrative Re-Assessment/Exam: 11/22/17 09:36 I ordered labs, UA, and an x-ray of her abdomen. 11/22/17 11:06 Her x-ray looks good. Her CBC, CMP, and troponin look good. Her UA shows no UTI. She feels better. I feel this is some gastritis. I will have her take some pepcid or prilosec for a week. Departure - Departure Time of Disposition: 11:10 Disposition: Home, Self-Care 01 Condition: Good Clinical Impression: Gastritis Qualifiers: Gastritis type: unspecified gastritis Chronicity: acute Gastritis bleeding: without bleeding Qualified Code(s): K29.00 - Acute gastritis without bleeding - Discharge Information Referrals: Jerson Rosales MD [Primary Care Provider] - 1 Week Forms: ED Department Discharge Additional Instructions: Take pepcid or prilosec OTC for 1 week. Avoid spicy foods, eating late at night and laying down after eating. Please return if you are worse. - My Orders Last 24 Hours: My Active Orders 11/22/17 09:27 Abdomen 1V Upright [CR] Stat 11/22/17 10:02 UA W/MICROSCOPIC [URIN] Stat - Assessment/Plan Last 24 Hours: My Active Orders 11/22/17 09:27 Abdomen 1V Upright [CR] Stat 11/22/17 10:02 UA W/MICROSCOPIC [URIN] Stat
[2017-11-22 11:20] VITALS: BP 149/94
--- NOTE | 2017-11-24 11:27 | CR ---
Abdomen: Upright view of the abdomen was obtained. Comparison: Prior abdominal x-ray of 06/25/17. Bowel gas pattern appears normal. No free air is seen. Bony structures are unremarkable. Impression: 1. Nothing acute seen on upright abdominal x-ray. Diagnostic code #1
== END 2017-11-22 11:16 | disposition home or self-care (01) ==
LOC: JD.ED 08:59
DX: K29.00 Acute gastritis without bleeding (principal); F17.210 Nicotine dependence, cigarettes, uncomplicated; Z88.8 Allergy status to other drugs, medicaments and biological substances; Z88.5 Allergy status to narcotic agent; Z91.030 Bee allergy status; Z79.899 Other long term (current) drug therapy
CPT/HCPCS: 36415; 74018; 74018-26; 80053; 81001; 83690; 84484; 85025; 99283; 99284

== ENCOUNTER 2018-07-01 10:52 | Emergency (ER) | payer MEDICAID, OTHER ==
[2018-07-01 11:13] VITALS: BP 153/95
--- NOTE | 2018-07-01 11:57 | EDM.PDOCBH ---
ED HPI GENERAL MEDICAL PROBLEM - General Chief Complaint: Behavioral/Psych Stated Complaint: DIZZY AND STRESSED Time Seen by Provider: 07/01/18 11:20 Source of Information: Reports: Patient History Limitations: Reports: No Limitations - History of Present Illness INITIAL COMMENTS - FREE TEXT/NARRATIVE: 62-year-old female presents for evaluation and treatment of dizziness, stress and anxiety. Patient reports she's been experiencing dizziness for several weeks. Dizziness is intermittent. Review of the patient's record shows she has been seen for dizziness before, no definitive etiology found. She reports associated symptoms of nausea and stomachaches for sounds like this is more chronic problem and she states she's had since she was a child. She has been experiencing some pressure and ear fullness. No fevers, vomiting, cough, diarrhea or any bloody stools. She reports at times she has chest discomfort and a hard time breathing. She reports occasional neck discomfort from using her phone and computer. Patient also talks extensively about stress, depression and anxiety she is experiencing. She is currently on Xanax but states this is not helping her any longer. She was prescribed Prozac by her primary care provider, Dr. Soto, but she has not started this. She reports stressors including a lack of support from her family. She states that she feels she is doing everything alone. She has fleeting thoughts of suicide in the form of whta if I wasn't here anymore. She has no active suicidal thoughts now or any plan at this time. She reports she would never take her own life. She states she was seen a trainmaster at her [facility] for counseling but has not been seen any license counselors. She's not seen her primary care provider in the last 5 months. - Related Data Allergies Allergy/AdvReac Type Severity Reaction Status Date / Time amlodipine Allergy Swelling Verified 07/01/18 11:05 amoxicillin Allergy Chest Verified 07/01/18 11:06 Tightness benzocaine Allergy Not Listed Verified 07/01/18 11:05 cortisone Allergy Red Rash Verified 07/01/18 11:05 venom-honey bee Allergy Redness Verified 07/01/18 11:05 [bee venom (honey bee)] and Swelling Corepivicaine Allergy Not Listed Uncoded 07/01/18 11:05 isocaine 2% w/Levonordefien Allergy Not Listed Uncoded 01/16/19 11:05 1:20K Home Meds: Home Meds ALPRAZolam [Xanax] 0.5 mg PO ASDIRECTED PRN 03/21/18 [History] Dicyclomine [Bentyl] 10 mg PO ASDIRECTED PRN 07/01/18 [History] Past Medical History HEENT History: Reports: Other (See Below) Other HEENT History: dental history Cardiovascular History: Reports: Heart Murmur Gastrointestinal History: Reports: Irritable Bowel Syndrome 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 Social & Family History - Family History Family Medical History: Noncontributory - Tobacco Use Smoking Status *Q: Current Every Day Smoker Years of Tobacco use: 55 Packs/Tins Daily: 0.5 - Caffeine Use Caffeine Use: Reports: Coffee, Tea - Recreational Drug Use Recreational Drug Use: No ED ROS GENERAL - Review of Systems Review Of Systems: See Below Constitutional: Denies: Fever, Chills HEENT: Denies: Ear Pain, Throat Pain GI/Abdominal: Reports: Abdominal Pain (chronic), Nausea. Denies: Diarrhea, Hematochezia, Melena, Vomiting Neurological: Reports: Dizziness. Denies: Headache Psychiatric: Reports: Anxiety, Depression ED EXAM, BEHAVIORAL HEALTH - Physical Exam Exam: See Below Exam Limited By: No Limitations General Appearance: Alert, WD/WN, No Apparent Distress Eye Exam: Bilateral Eye: Normal Inspection, PERRL Ears: Normal External Exam, Normal Canal, Normal TMs (right), Other (left TM obscured by cerumen) Nose: Normal Inspection Throat/Mouth: Normal Inspection, Normal Voice, No Airway Compromise Neck: Normal Inspection. No: Carotid Bruit Respiratory/Chest: No Respiratory Distress, Lungs Clear, Normal Breath Sounds Cardiovascular: Normal Peripheral Pulses, Regular Rate, Rhythm, No Murmur Neurological: Alert, Normal Mood/Affect, Normal Cognition Psychiatric: Alert, Normal Affect, Normal Cognition, Normal Mood. No: Uncooperative, Withdrawn, Suicidal Plan, Suicidal Thoughts Skin Exam: Warm, Dry, Normal color COURSE, BEHAVIORAL HEALTH COMP - Course Vital Signs: Last Vital Signs Temp 97.3 F 07/01/18 11:08 Pulse 76 07/01/18 11:08 Resp 16 07/01/18 11:08 BP 153/95 H 07/01/18 11:08 Pulse Ox 100 07/01/18 11:08 Orders, Labs, Meds: Active Orders 24 hr Category Date Time Status Blood Glucose Check, Bedside [RC] ONETIME Care 07/01/18 11:27 Active Laboratory Tests 07/01/18 07/01/18 07/01/18 Range/Units 11:26 11:49 11:49 WBC 8.06 (3.98-10.04) K/mm3 RBC 5.01 (3.98-5.22) M/mm3 Hgb 16.4 H (11.2-15.7) gm/L Hct 46.3 H (34.1-44.9) % MCV 92.4 (79.4-94.8) fl MCH 32.7 H (25.6-32.2) pg MCHC 35.4 (32.2-35.5) g/dl RDW Std Deviation 41.4 (36.4-46.3) fL Plt Count 320 (182-369) K/mm3 MPV 8.8 L (9.4-12.3) fl Neut % (Auto) 65.9 (34.0-71.1) % Lymph % (Auto) 25.9 (19.3-51.7) % [place] % (Auto) 6.5 (4.7-12.5) % Eos % (Auto) 0.5 L (0.7-5.8) Baso % (Auto) 1.0 (0.1-1.2) % Neut # (Auto) 5.31 (1.56-6.13) K/mm3 Lymph # (Auto) 2.09 (1.18-3.74) K/mm3 [place] # (Auto) 0.52 H (0.24-0.36) K/mm3 Eos # (Auto) 0.04 (0.04-0.36) K/mm3 Baso # (Auto) 0.08 (0.01-0.08) K/mm3 Sodium 140 (136-145) mEq/L Potassium 3.7 (3.5-5.1) mEq/L Chloride 104 (98-107) mEq/L Carbon Dioxide 26 (21-32) mEq/L Anion Gap 13.7 (5-15) BUN 11 (7-18) mg/dL Creatinine 0.8 (0.55-1.02) mg/dL Est Cr Clr Drug Dosing 53.41 mL/min Estimated GFR (MDRD) > 60 (>60) mL/min BUN/Creatinine Ratio 13.8 L (14-18) Glucose 88 (80-115) mg/dL POC Glucose 88 (80-115) mg/dL Calcium 9.5 (8.5-10.1) mg/dL Total Bilirubin 0.8 (0.2-1.0) mg/dL AST 24 (15-37) U/L ALT 30 (14-59) U/L Alkaline Phosphatase 73 (46-116) U/L Total Protein 7.2 (6.4-8.2) g/dl Albumin 3.9 (3.4-5.0) g/dl Globulin 3.3 gm/dL Albumin/Globulin Ratio 1.2 (1-2) TSH 3rd Generation 1.026 (0.358-3.74) uIU/mL Urine Color (Yellow) Urine Appearance (Clear) Urine pH (5.0-8.0) Ur Specific [place] (1.005-1.030) Urine Protein (Negative) Urine Glucose (UA) (Negative) Urine Ketones (Negative) Urine Occult Blood (Negative) Urine Nitrite (Negative) Urine Bilirubin (Negative) Urine Urobilinogen (0.2-1.0) Ur Leukocyte Esterase (Negative) Urine RBC (0-5) /hpf Urine WBC (0-5) /hpf Ur Epithelial Cells (0-5) /hpf Urine Bacteria (FEW) /hpf Urine Mucus (FEW) /hpf 07/01/18 Range/Units 12:05 WBC (3.98-10.04) K/mm3 RBC (3.98-5.22) M/mm3 Hgb (11.2-15.7) gm/L Hct (34.1-44.9) % MCV (79.4-94.8) fl MCH (25.6-32.2) pg MCHC (32.2-35.5) g/dl RDW Std Deviation (36.4-46.3) fL Plt Count (182-369) K/mm3 MPV (9.4-12.3) fl Neut % (Auto) (34.0-71.1) % Lymph % (Auto) (19.3-51.7) % [place] % (Auto) (4.7-12.5) % Eos % (Auto) (0.7-5.8) Baso % (Auto) (0.1-1.2) % Neut # (Auto) (1.56-6.13) K/mm3 Lymph # (Auto) (1.18-3.74) K/mm3 [place] # (Auto) (0.24-0.36) K/mm3 Eos # (Auto) (0.04-0.36) K/mm3 Baso # (Auto) (0.01-0.08) K/mm3 Sodium (136-145) mEq/L Potassium (3.5-5.1) mEq/L Chloride (98-107) mEq/L Carbon Dioxide (21-32) mEq/L Anion Gap (5-15) BUN (7-18) mg/dL Creatinine (0.55-1.02) mg/dL Est Cr Clr Drug Dosing mL/min Estimated GFR (MDRD) (>60) mL/min BUN/Creatinine Ratio (14-18) Glucose (80-115) mg/dL POC Glucose (80-115) mg/dL Calcium (8.5-10.1) mg/dL Total Bilirubin (0.2-1.0) mg/dL AST (15-37) U/L ALT (14-59) U/L Alkaline Phosphatase (46-116) U/L Total Protein (6.4-8.2) g/dl Albumin (3.4-5.0) g/dl Globulin gm/dL Albumin/Globulin Ratio (1-2) TSH 3rd Generation (0.358-3.74) uIU/mL Urine Color Yellow (Yellow) Urine Appearance Clear (Clear) Urine pH 7.5 (5.0-8.0) Ur Specific [place] 1.015 (1.005-1.030) Urine Protein Negative (Negative) Urine Glucose (UA) Negative (Negative) Urine Ketones Negative (Negative) Urine Occult Blood Negative (Negative) Urine Nitrite Negative (Negative) Urine Bilirubin Negative (Negative) Urine Urobilinogen 0.2 (0.2-1.0) Ur Leukocyte Esterase Negative (Negative) Urine RBC Not seen (0-5) /hpf Urine WBC 0-5 (0-5) /hpf Ur Epithelial Cells 0-5 (0-5) /hpf Urine Bacteria Rare (FEW) /hpf Urine Mucus Not seen (FEW) /hpf Re-Assessment/Re-Exam: 12:45 I reviewed the labs with the patient. Will discharge home at this time. Discharge instructions as documented. Departure - Departure Time of Disposition: 12:49 Disposition: Home, Self-Care 01 Condition: Good Clinical Impression: Dizziness, Anxiety - Discharge Information *PRESCRIPTION DRUG MONITORING PROGRAM REVIEWED*: No *COPY OF PRESCRIPTION DRUG MONITORING REPORT IN PATIENT LINDA: No Referrals: Jerson Rosales MD [Primary Care Provider] - Forms: ED Department Discharge Additional Instructions: Recommend starting the Prozac Dr. Soto has prescribed for you. Expect that this medication will take several weeks before you will notice any effect I encourage you to stick with it. A brochure has been provided for you for local counselors and resources available in our area. Encourage you to consider seeing a counselor. Follow-up with your primary care provider for further management of your Prozac and Xanax. Make sure you're drinking plenty of fluids. Please return to the ER if your symptoms change or worsen. - My Orders Last 24 Hours: My Active Orders 07/01/18 11:27 Blood Glucose Check, Bedside [RC] ONETIME - Assessment/Plan Last 24 Hours: My Active Orders 07/01/18 11:27 Blood Glucose Check, Bedside [RC] ONETIME
== END 2018-07-01 12:59 | disposition home or self-care (01) ==
LOC: JD.ED 10:52
DX: R42 Dizziness and giddiness (principal); F41.9 Anxiety disorder, unspecified; R11.0 Nausea; F32.9 Major depressive disorder, single episode, unspecified; F17.210 Nicotine dependence, cigarettes, uncomplicated; Z88.1 Allergy status to other antibiotic agents; Z88.4 Allergy status to anesthetic agent; Z88.8 Allergy status to other drugs, medicaments and biological substances; Z91.030 Bee allergy status
CPT/HCPCS: 36415; 80053; 81001; 82962; 84443; 85025; 99284

== ENCOUNTER 2018-08-17 18:53 | Emergency (ER) | payer MEDICAID ==
[2018-08-17 19:03] VITALS: BP 174/91
--- NOTE | 2018-08-17 19:31 | EDM.PDOC ---
ED HPI GENERAL MEDICAL PROBLEM - General Chief Complaint: Respiratory Problem Stated Complaint: ACHES ALL OVER BODY Time Seen by Provider: 08/17/18 19:04 Source of Information: Reports: Patient, RN Notes Reviewed - History of Present Illness INITIAL COMMENTS - FREE TEXT/NARRATIVE: onset of cough, keith., fever, chills, Morales, muscle aching 3 days ago, symptoms still continue. Cough now actually somewhat better today. Cough mostly nonproductive. Was seen at clinic earlier today, strep and flu screen neg. Generalized Pain Score (Numeric/FACES): 8 - Related Data Allergies Allergy/AdvReac Type Severity Reaction Status Date / Time amlodipine Allergy Swelling Verified 08/17/18 19:12 amoxicillin Allergy Chest Verified 08/17/18 19:12 Tightness benzocaine Allergy Not Listed Verified 08/17/18 19:12 cortisone Allergy Red Rash Verified 08/17/18 19:12 venom-honey bee Allergy Redness Verified 08/17/18 19:12 [bee venom (honey bee)] and Swelling Corepivicaine Allergy Not Listed Uncoded 08/17/18 19:12 isocaine 2% w/Levonordefien Allergy Not Listed Uncoded 08/17/18 19:12 1:20K Home Meds: Home Meds ALPRAZolam [Xanax] 0.5 mg PO ASDIRECTED PRN 03/21/18 [History] Dicyclomine [Bentyl] 10 mg PO ASDIRECTED PRN 07/01/18 [History] FLUoxetine HCl [Fluoxetine] 10 mg PO DAILY 08/17/18 [History] Past Medical History HEENT History: Reports: Other (See Below) Other HEENT History: dental history Cardiovascular History: Reports: Heart Murmur Gastrointestinal History: Reports: Irritable Bowel Syndrome MARINE ENGINEER History: 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 Social & Family History - Family History Family Medical History: Noncontributory - Tobacco Use Smoking Status *Q: Current Every Day Smoker Years of Tobacco use: 50 Packs/Tins Daily: 0.2 - Caffeine Use Caffeine Use: Reports: Coffee, Tea - Recreational Drug Use Recreational Drug Use: No ED ROS GENERAL - Review of Systems Review Of Systems: See Below Constitutional: Reports: Fever, Chills. Denies: Diaphoresis HEENT: Reports: Rhinitis, Throat Pain (now better) Respiratory: Reports: Cough, Sputum (occasional). Denies: Shortness of Breath, Wheezing GI/Abdominal: Denies: Abdominal Pain, Diarrhea, Nausea, Vomiting Musculoskeletal: Reports: Other (generalized achiness) Skin: Reports: No Symptoms Neurological: Reports: Headache ED EXAM, GENERAL - Physical Exam Exam: See Below General Appearance: Alert, Mild Distress Eye Exam: Bilateral Eye: PERRL Ears: Normal External Exam Throat/Mouth: Normal Inspection, Normal Oropharynx Head: Atraumatic Neck: Supple. No: Lymphadenopathy (L), Lymphadenopathy (R) Respiratory/Chest: No Respiratory Distress, Lungs Clear, Normal Breath Sounds. No: Rhonchi, Wheezing Cardiovascular: Regular Rate, Rhythm GI/Abdominal: Soft, Non-Tender Extremities: Normal Inspection. No: Pedal Edema, Leg Pain Neurological: Alert, No Motor/Sensory Deficits Skin Exam: Warm, Dry, Normal Color Course - Vital Signs Last Recorded V/S: Last Vital Signs Temp 100.0 F 08/17/18 19:20 Pulse 68 08/17/18 19:01 Resp 18 08/17/18 19:01 BP 174/91 H 08/17/18 19:01 Pulse Ox 100 08/17/18 19:01 Departure - Departure Time of Disposition: 19:31 Disposition: Home, Self-Care 01 Condition: Fair Clinical Impression: Influenza - Discharge Information Referrals: Jerson Rosales MD [Primary Care Provider] - Forms: ED Department Discharge Additional Instructions: You have all of the major symptoms of influenza so you do either have influenza or influenza like viral upper respiratory infection. Antibiotics do not kill the virus so treatment is symptomatic. Drink plenty of water to maintain hydration. Vaporizer or steam as needed. Rest. Tylenol q 6 to 8 hr as needed for headache, fever and achiness. The supplements we talked about should be OK as long as you take them in not more than recomended dosages. Follow up clinic if not much better within 3 to 4 days, Return to ED as needed if symptoms worsening in any way.
== END 2018-08-17 19:47 | disposition home or self-care (01) ==
LOC: JD.ED 18:53
DX: J11.1 Influenza due to unidentified influenza virus with other respiratory manifestations (principal); F41.9 Anxiety disorder, unspecified; F32.9 Major depressive disorder, single episode, unspecified; F17.210 Nicotine dependence, cigarettes, uncomplicated; Z88.1 Allergy status to other antibiotic agents; Z88.8 Allergy status to other drugs, medicaments and biological substances; Z79.899 Other long term (current) drug therapy
CPT/HCPCS: 87081; 87430; 87804; 99282; 99283

== ENCOUNTER 2018-08-24 17:20 | Emergency (ER) | payer MEDICAID | END 2018-08-24 17:21 | disposition left against medical advice (07) | LOC: JD.ED 17:20 | DX: Z53.21 Procedure and treatment not carried out due to patient leaving prior to being seen by health care provider (principal) ==

== ENCOUNTER 2018-08-25 11:48 | Emergency (ER) | payer MEDICAID ==
[2018-08-25 12:17] VITALS: BP 157/96
--- NOTE | 2018-08-25 13:21 | EDM.PDOC ---
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 Patient continues to smoke. Patient states that she continues to have anxiety but is concerned about taking her Xanax and lorazepam when necessary. She is not taking any medication for her URI. She denies fever or chills. Patient does report having more anxiety and stress. She states that she woke up today received a numerous amount of bills and that stressed her out even more. She reports that her PCP is Dr. Soto. Patient did voice her concerns about taking her anxiety medications. She did state she was interested in seeing a counselor as well. (Justine Bell) - Related Data Allergies Allergy/AdvReac Type Severity Reaction Status Date / Time amlodipine Allergy Swelling Verified 08/17/18 19:12 amoxicillin Allergy Chest Verified 08/17/18 19:12 Tightness benzocaine Allergy Not Listed Verified 08/17/18 19:12 cortisone Allergy Red Rash Verified 08/17/18 19:12 venom-honey bee Allergy Redness Verified 08/17/18 19:12 [bee venom (honey bee)] and Swelling Corepivicaine Allergy Not Listed Uncoded 08/17/18 19:12 isocaine 2% w/Levonordefien Allergy Not Listed Uncoded 08/17/18 19:12 1:20K Home Meds: Home Meds ALPRAZolam [Xanax] 0.5 mg PO ASDIRECTED PRN 03/21/18 [History] Dicyclomine [Bentyl] 10 mg PO ASDIRECTED PRN 07/01/18 [History] FLUoxetine HCl [Fluoxetine] 10 mg PO DAILY 08/17/18 [History] Past Medical History HEENT History: Reports: Other (See Below) Other HEENT History: dental history Cardiovascular History: Reports: Heart Murmur Gastrointestinal History: Reports: Irritable Bowel Syndrome 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 Social & Family History - Family History Family Medical History: Noncontributory - Caffeine Use Caffeine Use: Reports: Coffee, Tea ED ROS GENERAL - Review of Systems Review Of Systems: See Below Constitutional: Reports: Fatigue. Denies: Fever, Chills HEENT: Reports: No Symptoms Respiratory: Reports: Cough Cardiovascular: Reports: No Symptoms. Denies: Chest Pain Endocrine: Reports: No Symptoms GI/Abdominal: Reports: No Symptoms : Reports: No Symptoms Musculoskeletal: Reports: No Symptoms Skin: Reports: No Symptoms Neurological: Reports: No Symptoms Psychiatric: Reports: Anxiety Hematologic/Lymphatic: Reports: No Symptoms Immunologic: Reports: No Symptoms - Physical Exam Exam: See Below Exam Limited By: No Limitations General Appearance: Alert, WD/WN, No Apparent Distress, Anxious Ears: Normal External Exam, Normal Canal, Hearing Grossly Normal, Normal TMs, Other (left ear impaction) Nose: Normal Inspection, Normal Mucosa, No Blood Throat/Mouth: Normal Inspection, Normal Lips, Normal Teeth, Normal Gums, Normal Oropharynx, Normal Voice, No Airway Compromise Head Exam: Atraumatic, Normocephalic Neck: Normal Inspection, Supple, Non-Tender, Full Range of Motion Respiratory/Chest: No Respiratory Distress, Lungs Clear, Normal Breath Sounds, No Accessory Muscle Use, Chest Non-Tender Cardiovascular: Normal Peripheral Pulses, Regular Rate, Rhythm, No Edema, No Gallop, No JVD, No Murmur, No Rub Neuro Exam (Abbreviated): Alert, Oriented, CN II-XII Intact, Normal Cognition, Normal Gait, Normal Reflexes, No Motor/Sensory Deficits Back Exam: Normal Inspection, Full Range of Motion Psychiatric: Normal Affect, Normal Mood, Anxious Skin Exam: Warm, Dry, Intact, Normal Color, No Rash Course - Vital Signs Last Recorded V/S: Last Vital Signs Temp 36.7 C 08/25/18 12:08 Pulse 64 08/25/18 12:08 Resp 16 08/25/18 12:08 BP 157/96 H 08/25/18 12:08 Pulse Ox 99 08/25/18 12:08 - Radiology Interpretation Free Text/Narrative:: 62-year-old female presents to the ED with increased anxiety. Reluctant to take her current prescribed anxiolytics. She is fearful of the medication itself she essentially just required reassurance. Will use her Ativan and Xanax as previously prescribed and she believes she might benefit from counseling services and we will try and set this in motion for her. I was therefore involved in the medical decision making as well as abilities physical examination of this patient. She does have a mild viral upper repiratory tract infection but no evidence of influenza. I have verified all of the nurse practitioners documentation history and physical exam and medical decision making and I concur.. (Winston Benitez) - Re-Assessments/Exams Free Text/Narrative Re-Assessment/Exam: 08/25/18 13:26 Discussed plan of care with patient patient. Instructed patient to use cool mist vaporizer. Encourage patient to increase her fluid intake. I offered Reena Quinones patient she will consider taking this I instruct the patient to take her lorazepam or Xanax asking prescribed for her anxiety. Discussed having outpatient counseling patient agrees with this plan and will contact Dr. Arreola to be evaluated and treated as outpatient basis with a counselor. ( Justine Bell) Departure - Departure Time of Disposition: 13:27 Condition: Good - Discharge Information *PRESCRIPTION DRUG MONITORING PROGRAM REVIEWED*: Not Applicable *COPY OF PRESCRIPTION DRUG MONITORING REPORT IN PATIENT LINDA: Not Applicable - Departure Disposition: Home, Self-Care 01 Clinical Impression: Anxiety - Discharge Information Instructions: Panic Attack, [id number] Referrals: Jerson Rosales MD [Primary Care Provider] - Forms: ED Department Discharge Additional Instructions: He had been diagnosed with anxiety. You're to take it here Xanax or lorazepam as prescribed. for your viral upper respiratory infection I recommend using a cool mist vaporizer or hot steamy shower. He should follow-up with Dr. Soto for referral for counseling. Return to the emergency room for any new or acutely worsening symptoms.
== END 2018-08-25 13:37 | disposition home or self-care (01) ==
LOC: JD.ED 11:48
DX: F41.9 Anxiety disorder, unspecified (principal); F32.9 Major depressive disorder, single episode, unspecified; Z88.1 Allergy status to other antibiotic agents; Z88.8 Allergy status to other drugs, medicaments and biological substances; Z79.899 Other long term (current) drug therapy
CPT/HCPCS: 99283

== ENCOUNTER 2018-11-09 13:02 | Emergency (ER) | payer MEDICAID ==
[2018-11-09 13:25] VITALS: BP 160/100
[2018-11-09] MEDS ORDERED: LORazepam 0.5 MG Tab PO ONE (13:43)
--- NOTE | 2018-11-09 13:50 | EDM.PDOC ---
ED HPI GENERAL MEDICAL PROBLEM - General Chief Complaint: General Stated Complaint: ABDOMINAL PAIN Time Seen by Provider: 11/09/18 13:32 Source of Information: Reports: Patient, Old Records, RN Notes Reviewed History Limitations: Reports: No Limitations - History of Present Illness INITIAL COMMENTS - FREE TEXT/NARRATIVE: Patient is a 62-year-old female who presents to the ED for the evaluation of multiple complaints. She states that she has been under a lot of stress lately , and she has generalized aches and pains all over her body, with neck pain, abdominal pain, and a feeling of just not feeling right. The patient does note a history of anxiety, and she takes alprazolam when she feel she needs it. She further states that she moved into an apartment in 2014, and that she has felt generally unwell since she's been in this apartment building. She notes that a few of her tenant mates, one was diagnosed with mold exposure, and the other lady had stomach aches and she also had mold exposure. The patient's her primary care provider is Dr. Soto. She was worried that maybe she had some sort of mold exposure as well., As she states that she has been inside more lately as she is feeling a paperwork for Medicare and Medicaid. She notes that she does not take any medications for long-term anxiety, she states that she was on doxepin one point in time and that seemed to help the most, however she has not been taking that, and her primary care doc one and he started on Prozac but she did not take that either. Abdomen Pain Score (Numeric/FACES): 3 - Related Data Allergies Allergy/AdvReac Type Severity Reaction Status Date / Time amlodipine Allergy Swelling Verified 11/09/18 13:22 amoxicillin Allergy Chest Verified 11/09/18 13:22 Tightness benzocaine Allergy Not Listed Verified 11/09/18 13:22 cortisone Allergy Red Rash Verified 11/09/18 13:22 venom-honey bee Allergy Redness Verified 11/09/18 13:22 [bee venom (honey bee)] and Swelling Corepivicaine Allergy Not Listed Uncoded 08/17/18 19:12 isocaine 2% w/Levonordefien Allergy Not Listed Uncoded 08/17/18 19:12 1:20K Home Meds: Home Meds ALPRAZolam [Xanax] 0.5 mg PO ASDIRECTED PRN 03/21/18 [History] Dicyclomine [Bentyl] 10 mg PO ASDIRECTED PRN 07/01/18 [History] FLUoxetine HCl [Fluoxetine] 10 mg PO DAILY 08/17/18 [History] LORazepam [Ativan] 0.5 mg PO Q8HR PRN 11/09/18 [History] Past Medical History HEENT History: Reports: Other (See Below) Other HEENT History: dental history-allergies to numbning medication Cardiovascular History: Reports: Heart Murmur Gastrointestinal History: Reports: Hiatal Hernia, Irritable Bowel Syndrome 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 Social & Family History - Family History Family Medical History: Noncontributory - Tobacco Use Smoking Status *Q: Never Smoker - Caffeine Use Caffeine Use: Reports: None - Recreational Drug Use Recreational Drug Use: No ED ROS GENERAL - Review of Systems Review Of Systems: See Below Constitutional: Denies: Fever, Chills HEENT: Reports: No Symptoms Respiratory: Reports: No Symptoms Cardiovascular: Reports: No Symptoms Endocrine: Reports: No Symptoms GI/Abdominal: Reports: Abdominal Pain (generalized) Musculoskeletal: Reports: Other (generalized body aches) Skin: Reports: No Symptoms Neurological: Reports: No Symptoms Psychiatric: Reports: Anxiety Hematologic/Lymphatic: Reports: No Symptoms Immunologic: Reports: No Symptoms ED EXAM, GENERAL - Physical Exam Exam: See Below Exam Limited By: No Limitations General Appearance: Alert, WD/WN, No Apparent Distress, Anxious Eye Exam: Bilateral Eye: Normal Inspection Throat/Mouth: Normal Inspection, Normal Lips, Normal Teeth, Normal Gums, Normal Oropharynx, Normal Voice, No Airway Compromise Head: Atraumatic, Normocephalic Neck: Normal Inspection, Supple, Non-Tender, Full Range of Motion Respiratory/Chest: No Respiratory Distress, Lungs Clear, Normal Breath Sounds, No Accessory Muscle Use, Chest Non-Tender Cardiovascular: Normal Peripheral Pulses, Regular Rate, Rhythm, No Murmur Peripheral Pulses: 3+: Radial (L), Radial (R) GI/Abdominal: Normal Bowel Sounds, Soft, Non-Tender, No Distention, No Mass Extremities: Normal Inspection, Normal Capillary Refill Neurological: Alert, Oriented, Normal Cognition, No Motor/Sensory Deficits Psychiatric: Normal Affect, Normal Mood, Anxious Skin Exam: Warm, Dry, Intact, Normal Color, No Rash Course - Vital Signs Last Recorded V/S: Last Vital Signs Temp 97.9 F 11/09/18 13:22 Pulse 70 11/09/18 13:22 Resp 16 11/09/18 13:22 BP 160/100 H 11/09/18 13:22 Pulse Ox 100 11/09/18 13:22 - Orders/Labs/Meds Labs: Laboratory Tests 11/09/18 11/09/18 11/09/18 Range/Units 14:10 14:10 14:10 WBC 6.23 (3.98-10.04) K/mm3 RBC 5.28 H (3.98-5.22) M/mm3 Hgb 16.7 H (11.2-15.7) gm/L Hct 48.4 H (34.1-44.9) % MCV 91.7 (79.4-94.8) fl MCH 31.6 (25.6-32.2) pg MCHC 34.5 (32.2-35.5) g/dl RDW Std Deviation 43.0 (36.4-46.3) fL Plt Count 359 (182-369) K/mm3 MPV 8.8 L (9.4-12.3) fl Neutrophils % (Manual) 54 (40-60) % Band Neutrophils % 0 (0-10) % Lymphocytes % (Manual) 46 H (20-40) % Atypical Lymphs % 0 % Monocytes % (Manual) 0 L (2-10) % Eosinophils % (Manual) 0 L (0.7-5.8) % Basophils % (Manual) 0 L (0.1-1.2) Platelet Estimate Adequate RBC Morph Comment Normal Sodium 142 (136-145) mEq/L Potassium 3.6 (3.5-5.1) mEq/L Chloride 104 (98-107) mEq/L Carbon Dioxide 28 (21-32) mEq/L Anion Gap 13.6 (5-15) BUN 7 (7-18) mg/dL Creatinine 0.9 (0.55-1.02) mg/dL Est Cr Clr Drug Dosing 49.74 mL/min Estimated GFR (MDRD) > 60 (>60) mL/min BUN/Creatinine Ratio 7.8 L (14-18) Glucose 91 (80-115) mg/dL Calcium 9.1 (8.5-10.1) mg/dL Total Bilirubin 0.7 (0.2-1.0) mg/dL AST 29 (15-37) U/L ALT 39 (14-59) U/L Alkaline Phosphatase 76 (46-116) U/L Total Protein 7.5 (6.4-8.2) g/dl Albumin 4.2 (3.4-5.0) g/dl Globulin 3.3 gm/dL Albumin/Globulin Ratio 1.3 (1-2) TSH 3rd Generation 0.986 (0.358-3.74) uIU/mL Urine Color (Yellow) Urine Appearance (Clear) Urine pH (5.0-8.0) Ur Specific [place] (1.005-1.030) Urine Protein (Negative) Urine Glucose (UA) (Negative) Urine Ketones (Negative) Urine Occult Blood (Negative) Urine Nitrite (Negative) Urine Bilirubin (Negative) Urine Urobilinogen (0.2-1.0) Ur Leukocyte Esterase (Negative) Urine RBC (0-5) /hpf Urine WBC (0-5) /hpf Ur Squamous Epith Cells (0-5) /hpf Urine Bacteria (FEW) /hpf Urine Mucus (FEW) /hpf 11/09/18 Range/Units 14:24 WBC (3.98-10.04) K/mm3 RBC (3.98-5.22) M/mm3 Hgb (11.2-15.7) gm/L Hct (34.1-44.9) % MCV (79.4-94.8) fl MCH (25.6-32.2) pg MCHC (32.2-35.5) g/dl RDW Std Deviation (36.4-46.3) fL Plt Count (182-369) K/mm3 MPV (9.4-12.3) fl Neutrophils % (Manual) (40-60) % Band Neutrophils % (0-10) % Lymphocytes % (Manual) (20-40) % Atypical Lymphs % % Monocytes % (Manual) (2-10) % Eosinophils % (Manual) (0.7-5.8) % Basophils % (Manual) (0.1-1.2) Platelet Estimate RBC Morph Comment Sodium (136-145) mEq/L Potassium (3.5-5.1) mEq/L Chloride (98-107) mEq/L Carbon Dioxide (21-32) mEq/L Anion Gap (5-15) BUN (7-18) mg/dL Creatinine (0.55-1.02) mg/dL Est Cr Clr Drug Dosing mL/min Estimated GFR (MDRD) (>60) mL/min BUN/Creatinine Ratio (14-18) Glucose (80-115) mg/dL Calcium (8.5-10.1) mg/dL Total Bilirubin (0.2-1.0) mg/dL AST (15-37) U/L ALT (14-59) U/L Alkaline Phosphatase (46-116) U/L Total Protein (6.4-8.2) g/dl Albumin (3.4-5.0) g/dl Globulin gm/dL Albumin/Globulin Ratio (1-2) TSH 3rd Generation (0.358-3.74) uIU/mL Urine Color Light yellow (Yellow) Urine Appearance Clear (Clear) Urine pH 7.0 (5.0-8.0) Ur Specific [place] 1.015 (1.005-1.030) Urine Protein Negative (Negative) Urine Glucose (UA) Negative (Negative) Urine Ketones Negative (Negative) Urine Occult Blood Negative (Negative) Urine Nitrite Negative (Negative) Urine Bilirubin Negative (Negative) Urine Urobilinogen 0.2 (0.2-1.0) Ur Leukocyte Esterase Negative (Negative) Urine RBC 0-5 (0-5) /hpf Urine WBC 0-5 (0-5) /hpf Ur Squamous Epith Cells 0-5 (0-5) /hpf Urine Bacteria Rare (FEW) /hpf Urine Mucus Not seen (FEW) /hpf Meds: Medications Discontinued Medications Generic Name Dose Route Start Last Admin Trade Name Freq PRN Reason Stop Dose Admin Lorazepam 0.5 mg 11/09/18 13:43 11/09/18 13:56 Ativan PO 11/09/18 13:44 0.5 mg ONETIME ONE Administration - Re-Assessments/Exams Free Text/Narrative Re-Assessment/Exam: 11/09/18 13:59 Patient presents to the ED for the evaluation of general feelings of being unwell. The patient is well-known to this ER for her history of anxiety. I have ordered a CBC, CMP, UA for further evaluation of any sort of abdominal issues, and I have ordered 0.5 mg Ativan to be given to see if this doesn't further help the patient's symptoms. It is likely that she is suffering from a panic attack, or increased anxiety. I have recommended that if she was worried about her living situation and there being mold that she move from that place to another place. I have also recommended to her that she needs to follow up with her primary care physician, Dr. Jerson Soto and follow his directions, for medications that she has been given. She was understanding of this. Departure - Departure Time of Disposition: 15:18 Disposition: Home, Self-Care 01 Condition: Fair Clinical Impression: Anxiety Abdominal pain Qualifiers: Abdominal location: generalized Qualified Code(s): R10.84 - Generalized abdominal pain - Discharge Information *PRESCRIPTION DRUG MONITORING PROGRAM REVIEWED*: No *COPY OF PRESCRIPTION DRUG MONITORING REPORT IN PATIENT LINDA: No Instructions: Generalized Anxiety Disorder, Adult Referrals: Jerson Rosales MD [Primary Care Provider] - Forms: ED Department Discharge Additional Instructions: You have been evaluated in the ED today for your increased anxiety and abdominal pain. Your laboratory evaluation did not demonstrate any acute infection at this time , your symptoms are likely due to your increased anxiety. Recommend that you follow up with your primary care provider within the next week or 2 for further management of your symptoms today. You would likely benefit from taking the Prozac on a daily basis, please seek further direction from your primary care provider on when to start Prozac. You may take your already prescribed Ativan tablets, 0.5 mg 3 times daily as needed for feelings of increased anxiety. We did discuss that you should decrease your hemp oil drop use, please take as directed, one half dropper 2 times a day for a few days and then see how you feel. You may wean yourself off more if you start feeling better after taking a smaller amount of this hemp oil. Please return to the ED if your symptoms should change or worsen.
== END 2018-11-09 15:30 | disposition home or self-care (01) ==
LOC: JD.ED 13:02
DX: F41.9 Anxiety disorder, unspecified (principal); R10.84 Generalized abdominal pain; F32.9 Major depressive disorder, single episode, unspecified; Z79.899 Other long term (current) drug therapy; Z91.030 Bee allergy status; Z88.8 Allergy status to other drugs, medicaments and biological substances; Z88.1 Allergy status to other antibiotic agents
CPT/HCPCS: 36415; 80053; 81001; 84443; 85007; 85027; 99284; A9270; 99283

== ENCOUNTER 2018-12-15 11:52 | Emergency (ER) | payer MEDICAID | END 2018-12-15 12:16 | LOC: JD.ED 11:52 | DX: Z53.21 Procedure and treatment not carried out due to patient leaving prior to being seen by health care provider (principal) ==

== ENCOUNTER 2019-02-21 18:48 | Emergency (ER) | payer MEDICARE, OTHER ==
[2019-02-21 18:56] VITALS: BP 163/94; PULSE 71
--- NOTE | 2019-02-21 19:21 | EDM.PDOC ---
ED HPI GENERAL MEDICAL PROBLEM - General Chief Complaint: Back Pain or Injury Stated Complaint: FEET NECK AND BACK HURT Time Seen by Provider: 02/21/19 19:16 - History of Present Illness INITIAL COMMENTS - FREE TEXT/NARRATIVE: 63-year-old female returns emergency room with multiple chronic pain complaints. This patient has been in the this emergency room multiple times with similar complaints usually chronic. Today patient has burning in her feet pain up the back of her legs all the way up her back and she gets headaches on a hit and miss basis. None of this is new. She has not had any recent accidents or falls. The best the patient patient can tell she's never tried Tylenol for this. She is on multiple dietary supplements to help. Mid-Anterior Feet Pain Score (Numeric/FACES): 10 - Related Data Allergies Allergy/AdvReac Type Severity Reaction Status Date / Time amlodipine Allergy Swelling Verified 02/21/19 18:56 amoxicillin Allergy Chest Verified 02/21/19 18:56 Tightness benzocaine Allergy Not Listed Verified 02/21/19 18:56 cortisone Allergy Red Rash Verified 02/21/19 18:56 venom-honey bee Allergy Redness Verified 02/21/19 18:56 [bee venom (honey bee)] and Swelling Corepivicaine Allergy Not Listed Uncoded 02/21/19 18:51 isocaine 2% w/Levonordefien Allergy Not Listed Uncoded 02/21/19 18:51 1:20K Home Meds: Home Meds ALPRAZolam [Xanax] 0.5 mg PO ASDIRECTED PRN 03/21/18 [History] Doxepin [SINEquan] 50 mg PO DAILY 01/11/19 [History] ALPRAZolam [Xanax] 0.5 mg PO TID PRN #20 tablet 01/29/19 [Rx] Past Medical History HEENT History: Reports: Other (See Below) Other HEENT History: dental history-allergies to numbning medication Cardiovascular History: Reports: Heart Murmur Respiratory History: Reports: None Gastrointestinal History: Reports: Hiatal Hernia Other Genitourinary History: Pt thinks her bladder is prolapsing. CLINICAL NURSE REVIEWER History: Reports: Other (See Below) Other CLINICAL NURSE REVIEWER History: uterian prolapse, breast lumptectomy Musculoskeletal History: Reports: None Neurological History: Reports: None Psychiatric History: Reports: Anxiety, Depression, Panic Attack Other Psychiatric History: chronnic anxiety Endocrine/Metabolic History: Reports: None Hematologic History: Reports: None Immunologic History: Reports: None Oncologic (Cancer) History: Reports: Other (See Below) Other Oncologic History: benign tumors from breasts removed Dermatologic History: Reports: None - Infectious Disease History Infectious Disease History: Reports: Chicken Pox, Measles, Rubella Other Infectious Disease History: belgian measles. - Past Surgical History Head Surgeries/Procedures: Reports: None HEENT Surgical History: Reports: Oral Surgery Oncologic Surgical History: Reports: Biopsy of Breast Social & Family History - Family History Family Medical History: Noncontributory - Tobacco Use Smoking Status *Q: Never Smoker - Caffeine Use Caffeine Use: Reports: None Other Caffeine Use: natural products - Recreational Drug Use Recreational Drug Use: No - Living Situation & Occupation Living situation: Reports: , Alone Occupation: Unemployed ED ROS GENERAL - Review of Systems Review Of Systems: See Below Constitutional: Reports: No Symptoms HEENT: Reports: No Symptoms Respiratory: Reports: No Symptoms Cardiovascular: Reports: No Symptoms GI/Abdominal: Reports: No Symptoms : Reports: No Symptoms Musculoskeletal: Reports: No Symptoms Skin: Reports: No Symptoms Neurological: Reports: No Symptoms Psychiatric: Reports: No Symptoms Hematologic/Lymphatic: Reports: No Symptoms Immunologic: Reports: No Symptoms ED EXAM, UPPER BACK/NECK PAIN - Physical Exam Exam: See Below Exam Limited By: Other (Vital signs stable she is in no acute distress) General Appearance: Alert, No Apparent Distress Head Exam: Atraumatic, Normocephalic Neck Exam: Non-Tender, Full Range of Motion, Normal Alignment, Normal Inspection. No: Spinous Processes Tender Cardiovascular/Respiratory: Regular Rate, Rhythm, No M/R/G, Normal Breath Sounds , No Respiratory Distress Back Exam: Normal Inspection, Full Range of Motion. No: Vertebral Tenderness Extremities: Normal Inspection, Non-Tender Course - Vital Signs Last Recorded V/S: Last Vital Signs Temp 36.1 C 02/21/19 18:55 Pulse 71 02/21/19 18:55 Resp 12 02/21/19 18:55 BP 163/94 H 02/21/19 18:55 Pulse Ox 100 02/21/19 18:55 - Re-Assessments/Exams Free Text/Narrative Re-Assessment/Exam: 02/21/19 19:19 At this point of encouraged her to follow-up with her regular provider they can start some medication I would not be willing to start the emergency room that might help for the burning in her feet for her routine aches and pains have recommended that she take Tylenol. Departure - Departure Time of Disposition: 19:20 Disposition: Home, Self-Care 01 Clinical Impression: Neuralgia and neuritis, Neck pain - Discharge Information Referrals: Jerson Rosales MD [Primary Care Provider] - Additional Instructions: Return to the emergency room if any acute problems. Follow-up with your regular provider and discuss some of these long-term concerns you have. For the routine aches and pains in her having give Tylenol a try. Follow dosing instructions on the bottle
== END 2019-02-21 19:32 | disposition home or self-care (01) ==
LOC: JD.ED 18:48
DX: M54.2 Cervicalgia (principal); M79.2 Neuralgia and neuritis, unspecified; F41.0 Panic disorder [episodic paroxysmal anxiety]; F32.9 Major depressive disorder, single episode, unspecified; Z91.030 Bee allergy status; Z88.8 Allergy status to other drugs, medicaments and biological substances; Z88.1 Allergy status to other antibiotic agents; Z79.899 Other long term (current) drug therapy
CPT/HCPCS: 99282; 99283

== ENCOUNTER 2019-02-28 12:51 | Emergency (ER) | payer MEDICARE, OTHER ==
[2019-02-28 13:09] VITALS: BP 148/94; PULSE 88
--- NOTE | 2019-02-28 15:05 | EDM.PDOC ---
ED HPI GENERAL MEDICAL PROBLEM - General Chief Complaint: Neurological Problem Stated Complaint: DIZZY Time Seen by Provider: 02/28/19 13:15 Source of Information: Reports: Patient History Limitations: Reports: No Limitations - History of Present Illness INITIAL COMMENTS - FREE TEXT/NARRATIVE: The patient presents with dizziness. She also does not feel well. She is nauseated at times. She does not eat much. She was seen at the walk in clinic and she was told that her sodium was low. She was told to take in more salt from her diet. She has no fever, chills, cough, chest pain, shortness of breath , abdominal pain, or dysuria. Onset: Gradual Duration: Week(s): Severity: Moderate Improves with: Reports: None Worsens with: Reports: None Associated Symptoms: Reports: Cough, Nausea/Vomiting. Denies: Chest Pain, Fever /Chills, Headaches, Shortness of Breath - Related Data Allergies Allergy/AdvReac Type Severity Reaction Status Date / Time amlodipine Allergy Swelling Verified 02/28/19 13:43 amoxicillin Allergy Chest Verified 02/28/19 13:43 Tightness benzocaine Allergy Not Listed Verified 02/28/19 13:43 cortisone Allergy Red Rash Verified 02/28/19 13:43 venom-honey bee Allergy Redness Verified 02/28/19 13:43 [bee venom (honey bee)] and Swelling Corepivicaine Allergy Not Listed Uncoded 02/21/19 18:51 isocaine 2% w/Levonordefien Allergy Not Listed Uncoded 02/21/19 18:51 1:20K Home Meds: Home Meds Doxepin [SINEquan] 50 mg PO DAILY 01/11/19 [History] ALPRAZolam [Xanax] 0.5 mg PO TID PRN #20 tablet 01/29/19 [Rx] Past Medical History HEENT History: Reports: Other (See Below) Other HEENT History: dental history-allergies to numbning medication Cardiovascular History: Reports: Heart Murmur Respiratory History: Reports: None Gastrointestinal History: Reports: Hiatal Hernia Other Genitourinary History: Pt thinks her bladder is prolapsing. 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 (See Below) Other BEAD WIRE TAPER History: uterian prolapse, breast lumptectomy Musculoskeletal History: Reports: None Neurological History: Reports: None Psychiatric History: Reports: Anxiety, Depression, Panic Attack Other Psychiatric History: chronnic anxiety Endocrine/Metabolic History: Reports: None Hematologic History: Reports: None Immunologic History: Reports: None Oncologic (Cancer) History: Reports: Other (See Below) Other Oncologic History: benign tumors from breasts removed Dermatologic History: Reports: None - Infectious Disease History Infectious Disease History: Reports: Chicken Pox, Measles, Rubella Other Infectious Disease History: eritrean measles. - Past Surgical History Head Surgeries/Procedures: Reports: None HEENT Surgical History: Reports: Oral Surgery Oncologic Surgical History: Reports: Biopsy of Breast Social & Family History - Family History Family Medical History: Noncontributory - Tobacco Use Smoking Status *Q: Current Every Day Smoker Years of Tobacco use: 25 Packs/Tins Daily: 0.4 - Caffeine Use Caffeine Use: Reports: Coffee, Soda, Tea Other Caffeine Use: natural products - Recreational Drug Use Recreational Drug Use: No - Living Situation & Occupation Living situation: Reports: , Alone Occupation: Unemployed ED ROS GENERAL - Review of Systems Review Of Systems: See Below Constitutional: Reports: No Symptoms HEENT: Reports: No Symptoms Respiratory: Reports: No Symptoms Cardiovascular: Reports: No Symptoms Endocrine: Reports: No Symptoms GI/Abdominal: Reports: Nausea. Denies: Abdominal Pain, Vomiting : Reports: No Symptoms Musculoskeletal: Reports: No Symptoms Skin: Reports: No Symptoms ED EXAM, NEURO - Physical Exam Exam: See Below Exam Limited By: No Limitations General Appearance: Alert, No Apparent Distress Ears: Normal External Exam Nose: Normal Inspection Head Exam: Atraumatic, Normocephalic Neck: Normal Inspection Respiratory/Chest: No Respiratory Distress, Lungs Clear, Normal Breath Sounds Cardiovascular: Regular Rate, Rhythm, No Edema, No Murmur GI/Abdominal: Soft, Non-Tender, No Organomegaly, No Mass Neurological: Alert, No Motor/Sensory Deficits, Oriented x 3 Course - Vital Signs Last Recorded V/S: Last Vital Signs Temp 98.9 F 02/28/19 13:08 Pulse 88 02/28/19 13:08 Resp 20 02/28/19 13:08 BP 148/94 H 02/28/19 13:08 Pulse Ox 97 02/28/19 13:08 - Orders/Labs/Meds Labs: Laboratory Tests 02/28/19 02/28/19 Range/Units 13:48 13:48 WBC 7.13 (3.98-10.04) K/mm3 RBC 4.67 (3.98-5.22) M/mm3 Hgb 15.0 D (11.2-15.7) gm/L Hct 43.4 (34.1-44.9) % MCV 92.9 (79.4-94.8) fl MCH 32.1 (25.6-32.2) pg MCHC 34.6 (32.2-35.5) g/dl RDW Std Deviation 42.8 (36.4-46.3) fL Plt Count 377 H (182-369) K/mm3 MPV 8.7 L (9.4-12.3) fl Neut % (Auto) 68.9 (34.0-71.1) % Lymph % (Auto) 23.8 (19.3-51.7) % [place] % (Auto) 5.5 (4.7-12.5) % Eos % (Auto) 0.4 L (0.7-5.8) Baso % (Auto) 1.1 (0.1-1.2) % Neut # (Auto) 4.91 (1.56-6.13) K/mm3 Lymph # (Auto) 1.70 (1.18-3.74) K/mm3 [place] # (Auto) 0.39 H (0.24-0.36) K/mm3 Eos # (Auto) 0.03 L (0.04-0.36) K/mm3 Baso # (Auto) 0.08 (0.01-0.08) K/mm3 Sodium 146 H (136-145) mEq/L Potassium 4.0 (3.5-5.1) mEq/L Chloride 114 H D (98-107) mEq/L Carbon Dioxide 23 (21-32) mEq/L Anion Gap 13.0 (5-15) BUN 6 L (7-18) mg/dL Creatinine 0.8 (0.55-1.02) mg/dL Est Cr Clr Drug Dosing 52.21 mL/min Estimated GFR (MDRD) > 60 (>60) mL/min BUN/Creatinine Ratio 7.5 L (14-18) Glucose 94 (80-115) mg/dL Calcium 8.7 (8.5-10.1) mg/dL Magnesium 2.2 (1.8-2.4) mg/dl Total Bilirubin 0.6 (0.2-1.0) mg/dL AST 33 (15-37) U/L ALT 49 (14-59) U/L Alkaline Phosphatase 71 (46-116) U/L Total Protein 6.7 (6.4-8.2) g/dl Albumin 3.8 (3.4-5.0) g/dl Globulin 2.9 gm/dL Albumin/Globulin Ratio 1.3 (1-2) - Re-Assessments/Exams Free Text/Narrative Re-Assessment/Exam: 02/28/19 15:04 I ordered labs and her CBC looks good. Her sodium is now 146. She can stop taking in more salt. She does have an appointment with a flooring mechanic soon. Departure - Departure Time of Disposition: 15:10 Disposition: Home, Self-Care 01 Condition: Good Clinical Impression: Dizziness - Discharge Information *PRESCRIPTION DRUG MONITORING PROGRAM REVIEWED*: No *COPY OF PRESCRIPTION DRUG MONITORING REPORT IN PATIENT LINDA: No Referrals: Jerson Rosales MD [Primary Care Provider] - 1 Week Forms: ED Department Discharge Additional Instructions: Year a health diet to include protein, vegetables and fruit. It is okay to use supplements but make sure you do eat first. Follow up with your flooring mechanic.
== END 2019-02-28 15:15 | disposition home or self-care (01) ==
LOC: JD.ED 12:51
DX: R42 Dizziness and giddiness (principal); F41.9 Anxiety disorder, unspecified; F32.9 Major depressive disorder, single episode, unspecified; F17.210 Nicotine dependence, cigarettes, uncomplicated; Z88.1 Allergy status to other antibiotic agents; Z88.8 Allergy status to other drugs, medicaments and biological substances; Z91.030 Bee allergy status; Z79.899 Other long term (current) drug therapy
CPT/HCPCS: 36415; 80053; 83735; 85025; 99282; 99284

== ENCOUNTER 2019-03-07 16:27 | Emergency (ER) | payer MEDICARE, OTHER ==
[2019-03-07 16:38] VITALS: BP 159/95; PULSE 79
--- NOTE | 2019-03-07 18:24 | EDM.PDOC ---
ED HPI GENERAL MEDICAL PROBLEM - General Chief Complaint: Abdominal Pain Stated Complaint: ABDOMINAL PAIN Time Seen by Provider: 03/07/19 16:47 Source of Information: Reports: Patient History Limitations: Reports: No Limitations - History of Present Illness INITIAL COMMENTS - FREE TEXT/NARRATIVE: The patient presents with lower abdominal pain. She says her "bladder prolapse is acting up." She has no nausea or vomiting. She is scheduled to see Dr Rivera next week. She has no fever or chills. She has no appetite but that is normal and she is working on that. She has no dysuria or hematuria. Onset: Gradual Duration: Day(s): Location: Reports: Abdomen Quality: Reports: Ache Severity: Mild Improves with: Reports: None Worsens with: Reports: None Associated Symptoms: Reports: No Other Symptoms Abdominal Pain Score (Numeric/FACES): 8 - Related Data Allergies Allergy/AdvReac Type Severity Reaction Status Date / Time amlodipine Allergy Swelling Verified 03/07/19 16:39 amoxicillin Allergy Chest Verified 03/07/19 16:39 Tightness benzocaine Allergy Not Listed Verified 03/07/19 16:39 cortisone Allergy Red Rash Verified 03/07/19 16:39 venom-honey bee Allergy Redness Verified 03/07/19 16:39 [bee venom (honey bee)] and Swelling Corepivicaine Allergy Not Listed Uncoded 02/21/19 18:51 isocaine 2% w/Levonordefien Allergy Not Listed Uncoded 02/21/19 18:51 1:20K Home Meds: Home Meds Doxepin [SINEquan] 50 mg PO DAILY 01/11/19 [History] ALPRAZolam [Xanax] 0.5 mg PO TID PRN #20 tablet 01/29/19 [Rx] Dicyclomine [Bentyl] 5 mg PO BID 03/07/19 [History] Past Medical History HEENT History: Reports: Other (See Below) Other HEENT History: dental history-allergies to numbning medication Cardiovascular History: Reports: Heart Murmur Respiratory History: Reports: None Gastrointestinal History: Reports: Hiatal Hernia Other Genitourinary History: Pt thinks her bladder is prolapsing. PICKER FEEDER History: Reports: Other (See Below) Other PICKER FEEDER History: uterian prolapse, breast lumptectomy Musculoskeletal History: Reports: None Neurological History: Reports: None Psychiatric History: Reports: Anxiety, Depression, Panic Attack Other Psychiatric History: chronnic anxiety Endocrine/Metabolic History: Reports: None Hematologic History: Reports: None Immunologic History: Reports: None Oncologic (Cancer) History: Reports: Other (See Below) Other Oncologic History: benign tumors from breasts removed Dermatologic History: Reports: None - Infectious Disease History Infectious Disease History: Reports: Chicken Pox, Measles, Rubella Other Infectious Disease History: kitt[place] measles. - Past Surgical History Head Surgeries/Procedures: Reports: None HEENT Surgical History: Reports: Oral Surgery Oncologic Surgical History: Reports: Biopsy of Breast Social & Family History - Family History Family Medical History: Noncontributory - Tobacco Use Smoking Status *Q: Current Every Day Smoker Years of Tobacco use: 40 Packs/Tins Daily: 0.5 - Caffeine Use Caffeine Use: Reports: None Other Caffeine Use: natural products - Recreational Drug Use Recreational Drug Use: No - Living Situation & Occupation Living situation: Reports: , Alone Occupation: Unemployed ED ROS GENERAL - Review of Systems Review Of Systems: See Below Constitutional: Reports: No Symptoms HEENT: Reports: No Symptoms Respiratory: Reports: No Symptoms Cardiovascular: Reports: No Symptoms Endocrine: Reports: No Symptoms GI/Abdominal: Reports: Abdominal Pain. Denies: Nausea, Vomiting : Reports: No Symptoms Musculoskeletal: Reports: No Symptoms ED EXAM, GI/ABD - Physical Exam Exam: See Below Exam Limited By: No Limitations General Appearance: Alert, No Apparent Distress Ears: Normal External Exam Nose: Normal Inspection Head: Atraumatic, Normocephalic Neck: Normal Inspection Respiratory/Chest: No Respiratory Distress, Lungs Clear, Normal Breath Sounds Cardiovascular: Regular Rate, Rhythm, No Edema, No Murmur GI/Abdominal Exam: Soft, Non-Tender, No Organomegaly, No Mass Back Exam: Normal Inspection Extremities: Normal Inspection Course - Vital Signs Last Recorded V/S: Last Vital Signs Temp 98.0 F 03/07/19 16:38 Pulse 79 03/07/19 16:38 Resp 20 03/07/19 16:38 BP 159/95 H 03/07/19 16:38 Pulse Ox 100 03/07/19 16:38 - Orders/Labs/Meds Labs: Laboratory Tests 03/07/19 Range/Units 17:20 Urine Color Yellow (Yellow) Urine Appearance Clear (Clear) Urine pH 6.0 (5.0-8.0) Ur Specific [place] 1.010 (1.005-1.030) Urine Protein Negative (Negative) Urine Glucose (UA) Negative (Negative) Urine Ketones 1+ H (Negative) Urine Occult Blood Negative (Negative) Urine Nitrite Negative (Negative) Urine Bilirubin Negative (Negative) Urine Urobilinogen 0.2 (0.2-1.0) Ur Leukocyte Esterase Negative (Negative) - Re-Assessments/Exams Free Text/Narrative Re-Assessment/Exam: 03/07/19 18:23 I ordered a UA and that looked good. I will discharge her home. Departure - Departure Time of Disposition: 18:35 Disposition: Home, Self-Care 01 Condition: Good Clinical Impression: Abdominal pain Qualifiers: Abdominal location: generalized Qualified Code(s): R10.84 - Generalized abdominal pain - Discharge Information *PRESCRIPTION DRUG MONITORING PROGRAM REVIEWED*: No *COPY OF PRESCRIPTION DRUG MONITORING REPORT IN PATIENT LINDA: No Referrals: Jerson Rosales MD [Primary Care Provider] - Forms: ED Department Discharge Additional Instructions: Follow up with your doctor as needed.
== END 2019-03-07 18:44 | disposition home or self-care (01) ==
LOC: JD.ED 16:27
DX: R10.84 Generalized abdominal pain (principal); F41.9 Anxiety disorder, unspecified; F32.9 Major depressive disorder, single episode, unspecified; F17.210 Nicotine dependence, cigarettes, uncomplicated; Z88.8 Allergy status to other drugs, medicaments and biological substances; Z88.1 Allergy status to other antibiotic agents; Z88.4 Allergy status to anesthetic agent; Z91.030 Bee allergy status; Z79.899 Other long term (current) drug therapy
CPT/HCPCS: 81003; 99284

== ENCOUNTER 2019-03-12 20:21 | Emergency (ER) | payer MEDICARE, OTHER ==
[2019-03-12 21:00] VITALS: BP 151/96; PULSE 64
--- NOTE | 2019-03-12 21:05 | EDM.PDOC ---
ED HPI GENERAL MEDICAL PROBLEM - General Chief Complaint: Behavioral/Psych Stated Complaint: STRESS/BLADDER PROLAPSE BLEEDING Time Seen by Provider: 03/12/19 21:03 Source of Information: Reports: Patient, RN Notes Reviewed History Limitations: Reports: No Limitations - History of Present Illness INITIAL COMMENTS - FREE TEXT/NARRATIVE: Patient is a 63-year-old female who presents to the ER for the evaluation of increased stress, and concerns about pelvic organ prolapse. The patient is well -known to this ER for complaints of stress and abdominal pain. Patient states that she's been feeling extra stress lately and wasn't sure she should ask to come to the ER for this. Patient has seen her primary care physician, Dr. Soto, and she is supposed be taking doxepin 50 mg daily at bedtime for long -term stress relief. She is also prescribed Xanax 0.5mg TID PRN for anxiety. Regarding the pelvic organ prolapse she was most recently evaluated by Dr. Beatty, and he recommended doing Kegel exercises to help strengthen her pelvic floor muscles, she notes that they did try pessaries but these were too painful for her. She does note some mild spotting with the associated organ prolapse. The patient also states that she is to have a gastroenterology appointment in March, on the regarding her IBS and hiatal hernia. The patient states that she also has increased stress at home, and she notes that some she was told that some of the tenants of her apartment building in which she resides have hepatitis A, B, C and this has her even more stress as she thinks she might contract this disease. Abdomen Pain Score (Numeric/FACES): 5 - Related Data Allergies Allergy/AdvReac Type Severity Reaction Status Date / Time amlodipine Allergy Swelling Verified 03/07/19 16:39 amoxicillin Allergy Chest Verified 03/07/19 16:39 Tightness benzocaine Allergy Not Listed Verified 03/07/19 16:39 cortisone Allergy Red Rash Verified 03/07/19 16:39 venom-honey bee Allergy Redness Verified 03/07/19 16:39 [bee venom (honey bee)] and Swelling Corepivicaine Allergy Not Listed Uncoded 02/21/19 18:51 isocaine 2% w/Levonordefien Allergy Not Listed Uncoded 02/21/19 18:51 1:20K Home Meds: Home Meds Doxepin [SINEquan] 50 mg PO DAILY 01/11/19 [History] ALPRAZolam [Xanax] 0.5 mg PO TID PRN #20 tablet 01/29/19 [Rx] Dicyclomine [Bentyl] 20 mg PO QID PRN 03/07/19 [History] Past Medical History HEENT History: Reports: Other (See Below) Other HEENT History: dental history-allergies to numbning medication Cardiovascular History: Reports: Heart Murmur Respiratory History: Reports: None Gastrointestinal History: Reports: Hiatal Hernia Other Genitourinary History: Pt thinks her bladder is prolapsing. BREAKFAST COOK History: Reports: Other (See Below) Other BREAKFAST COOK History: uterian prolapse, breast lumptectomy Musculoskeletal History: Reports: None Neurological History: Reports: None Psychiatric History: Reports: Anxiety, Depression, Panic Attack Other Psychiatric History: chronnic anxiety Endocrine/Metabolic History: Reports: None Hematologic History: Reports: None Immunologic History: Reports: None Oncologic (Cancer) History: Reports: Other (See Below) Other Oncologic History: benign tumors from breasts removed Dermatologic History: Reports: None - Infectious Disease History Infectious Disease History: Reports: Chicken Pox, Measles, Rubella Other Infectious Disease History: finn[place] measles. - Past Surgical History Head Surgeries/Procedures: Reports: None HEENT Surgical History: Reports: Oral Surgery Oncologic Surgical History: Reports: Biopsy of Breast Social & Family History - Family History Family Medical History: Noncontributory - Tobacco Use Smoking Status *Q: Current Every Day Smoker Years of Tobacco use: 25 Packs/Tins Daily: 0.5 - Caffeine Use Caffeine Use: Reports: Soda Other Caffeine Use: natural products - Recreational Drug Use Recreational Drug Use: No - Living Situation & Occupation Living situation: Reports: , Alone Occupation: Unemployed ED ROS GENERAL - Review of Systems Review Of Systems: ROS reveals no pertinent complaints other than HPI. GI/Abdominal: Reports: Abdominal Pain (chronic) : Reports: Other (pelvic organ prolapse) Neurological: Denies: Confusion, Dizziness Psychiatric: Reports: Anxiety. Denies: Depression, Homicidal Ideation, Suicidal Ideation ED EXAM, GENERAL - Physical Exam Exam: See Below Exam Limited By: No Limitations General Appearance: Alert, WD/WN, No Apparent Distress, Anxious (Patient is fidgeting with papers at initial exam.) Eye Exam: Bilateral Eye: EOMI, Normal Inspection, PERRL Ears: Normal External Exam Nose: Normal Inspection Throat/Mouth: Normal Inspection, Normal Lips, Normal Teeth, Normal Gums, Normal Oropharynx, Normal Voice, No Airway Compromise Head: Atraumatic, Normocephalic Neck: Normal Inspection Respiratory/Chest: No Respiratory Distress, Lungs Clear, Normal Breath Sounds, No Accessory Muscle Use, Chest Non-Tender Cardiovascular: Normal Peripheral Pulses, Regular Rate, Rhythm, No Murmur Peripheral Pulses: 3+: Radial (L), Radial (R) GI/Abdominal: Normal Bowel Sounds, Soft, Non-Tender, No Distention, No Mass (Female) Exam: Deferred Extremities: Normal Inspection, Normal Capillary Refill Neurological: Alert, Oriented, Normal Cognition, No Motor/Sensory Deficits Psychiatric: Normal Affect, Normal Mood, Anxious (this is chronic for Hillary, she does not seem any more anxious than she normallly is.) Skin Exam: Warm, Dry, Intact, Normal Color, No Rash Course - Vital Signs Last Recorded V/S: Last Vital Signs Temp 97.3 F 03/12/19 20:58 Pulse 64 03/12/19 20:58 Resp 20 03/12/19 20:58 BP 151/96 H 03/12/19 20:58 Pulse Ox 100 03/12/19 20:58 - Re-Assessments/Exams Free Text/Narrative Re-Assessment/Exam: 03/12/19 21:57 Patient presents to the ED for evaluation of increased stress and pelvic organ prolapse. Extensive discussion was had at the bedside regarding her doxepin use , she was strongly urged to start taking the doxepin as prescribed, as this should provide her long-term relief from stress, she did understand and states that she will try to start taking the doxepin as prescribed, I did go over the fact that she might need to take her Xanax TID while she started taking the doxepin as the doxepin might take a while to start working in her system. She was nervous about the side effects, and I went over the worrisome side effects with her, and this reassured her some. Regarding her pelvic organ prolapse, I did explain Kegel exercises to her, she is familiar with these and will try to do more of this to help the pelvic organ prolapse. Multiple issues were discussed, and the patient felt better at time of discharge regarding her stress level. Of note the patient has no acute physical findings on her physical exam to suggest acute illness. Departure - Departure Time of Disposition: 21:44 Disposition: Home, Self-Care 01 Condition: Fair Clinical Impression: Anxiety about health - Discharge Information *PRESCRIPTION DRUG MONITORING PROGRAM REVIEWED*: No *COPY OF PRESCRIPTION DRUG MONITORING REPORT IN PATIENT LINDA: No Instructions: Living With Anxiety Referrals: Jerson Rosales MD [Primary Care Provider] - Forms: ED Department Discharge Additional Instructions: You were evaluated in the ER [facility] for your anxiety. You are supposed be taking doxepin 50 mg at bedtime for long-term management of your stress. Please continue to do so as prescribed, this medication will take a while to start working the weight should, you may need to take your Xanax as prescribed, 3 times daily until the doxepin starts working well for you. You may take the dicyclomine as needed for further abdominal cramping due to your IBS. Please follow up with all specialty follow-up appointments, such as gastroenterology, and BREAKFAST COOK as previously scheduled. You will get the best benefit from taking the doxepin as previously prescribed by your primary care provider, I cannot stress is enough, please take your doxepin daily until it starts to work as it should. The doxepin is a long- term solution to your stress the Xanax is intended to be used for breakthrough stress not controlled by the doxepin alone. Recommend doing Kegle exercises, 10 times every hour, daily while awake, to help strengthen your pelvic floor muscles to alleviate symptoms of your pelvic organ prolapse. You may also continue to use the coconut oil to the vagina for moisturization. Please return to the ED for your symptoms should change or worsen.
== END 2019-03-12 21:56 | disposition home or self-care (01) ==
LOC: JD.ED 20:21 → SUPCPDRO 20:21 → JD.ED 21:56
DX: F41.9 Anxiety disorder, unspecified (principal); F32.9 Major depressive disorder, single episode, unspecified; F17.210 Nicotine dependence, cigarettes, uncomplicated; Z88.1 Allergy status to other antibiotic agents; Z88.8 Allergy status to other drugs, medicaments and biological substances; Z91.030 Bee allergy status; Z79.899 Other long term (current) drug therapy
CPT/HCPCS: 99283

== ENCOUNTER 2019-03-15 13:56 | Emergency (ER) | payer MEDICARE, OTHER ==
[2019-03-15 14:27] VITALS: BP 145/67; PULSE 74
== END 2019-03-15 14:39 ==
LOC: JD.ED 13:56
DX: Z53.21 Procedure and treatment not carried out due to patient leaving prior to being seen by health care provider (principal)

== ENCOUNTER 2019-03-31 11:16 | Emergency (ER) | payer MEDICARE, OTHER | END 2019-03-31 11:35 | disposition left against medical advice (07) | LOC: JD.ED 11:16 | DX: Z53.21 Procedure and treatment not carried out due to patient leaving prior to being seen by health care provider (principal) ==

== ENCOUNTER 2019-03-31 11:57 | Emergency (ER) | payer MEDICARE, OTHER ==
[2019-03-31 12:32] VITALS: BP 153/89; PULSE 62
--- NOTE | 2019-03-31 13:11 | EDM.PDOC ---
ED HPI GENERAL MEDICAL PROBLEM - General Chief Complaint: General Stated Complaint: CHILLS Time Seen by Provider: 03/31/19 12:34 Source of Information: Reports: Patient, RN Notes Reviewed History Limitations: Reports: No Limitations - History of Present Illness INITIAL COMMENTS - FREE TEXT/NARRATIVE: Patient is a 63-year-old female who presents to the ED for evaluation of a couple different issues. The patient's complaint of generalized chills, generalized abdominal pain, and pains on the bottom of her feet. Of note the patient comes to the ER on multiple occasions with abdominal pain, and this pain is no different than her normal pains. Pain on the bottom of her feet, she states that she was told by a chiropractor one point to rule occult: The bottom of her feet and this did seem to help. The generalized chills, she notes of just feeling cold all the time, but she states she does not do much for physical activity. Patient states that her primary care physician is out of town, otherwise she would have seen him for evaluation. The patient further notes a history of a prolapsed bladder, she states that she seen a couple different CARGO VESSEL STEWARDESS's including Dr. Beatty and Dr. Mathur, and states she is seeing Dr. Rivera at the end of the month for this. The patient states that she just feels stressed out lately, she ate she has been taking her Bentyl and Xanax as prescribed, but stopped taking the doxepin once again. She states she has had increased life stressors about her ex-, and mold in her apartment , and a sewer contractor smell she was told about in the building. She notes that she is going to see a drop forge hand in [place] next week as well. She denies any fever, nausea/vomiting/diarrhea, shortness of breath, chest pain. She notes that she was recently having some issues urinating, but she was checked for UTI and this was normal. She further states that she has a appointment with Dr. Saavedra, psychiatrist at [facility] next week Friday as well. Abdominal Pain Score (Numeric/FACES): 6 - Related Data Allergies Allergy/AdvReac Type Severity Reaction Status Date / Time amlodipine Allergy Swelling Verified 03/31/19 12:33 amoxicillin Allergy Chest Verified 03/31/19 12:33 Tightness benzocaine Allergy Not Listed Verified 03/31/19 12:33 cortisone Allergy Red Rash Verified 03/31/19 12:33 venom-honey bee Allergy Redness Verified 03/31/19 12:33 [bee venom (honey bee)] and Swelling Corepivicaine Allergy Not Listed Uncoded 03/31/19 12:33 isocaine 2% w/Levonordefien Allergy Not Listed Uncoded 03/31/19 12:33 1:20K Home Meds: Home Meds Doxepin [SINEquan] 50 mg PO DAILY 01/11/19 [History] ALPRAZolam [Xanax] 0.5 mg PO TID PRN #20 tablet 01/29/19 [Rx] Dicyclomine [Bentyl] 20 mg PO QID PRN 03/07/19 [History] Past Medical History HEENT History: Reports: Other (See Below) Other HEENT History: dental history-allergies to numbning medication Cardiovascular History: Reports: Heart Murmur Respiratory History: Reports: None Gastrointestinal History: Reports: Hiatal Hernia Other Genitourinary History: Pt thinks her bladder is prolapsing. CARGO VESSEL STEWARDESS History: Reports: Other (See Below) Other CARGO VESSEL STEWARDESS History: uterian prolapse, breast lumptectomy Musculoskeletal History: Reports: None Neurological History: Reports: None Psychiatric History: Reports: Anxiety, Depression, Panic Attack Other Psychiatric History: chronnic anxiety Endocrine/Metabolic History: Reports: None Hematologic History: Reports: None Immunologic History: Reports: None Oncologic (Cancer) History: Reports: Other (See Below) Other Oncologic History: benign tumors from breasts removed Dermatologic History: Reports: None - Infectious Disease History Infectious Disease History: Reports: Chicken Pox, Measles, Rubella Other Infectious Disease History: malagasy measles. - Past Surgical History Head Surgeries/Procedures: Reports: None HEENT Surgical History: Reports: Oral Surgery Oncologic Surgical History: Reports: Biopsy of Breast Social & Family History - Family History Family Medical History: Noncontributory - Tobacco Use Smoking Status *Q: Current Every Day Smoker Years of Tobacco use: 39 Packs/Tins Daily: 0.3 - Caffeine Use Caffeine Use: Reports: Soda Other Caffeine Use: natural products - Recreational Drug Use Recreational Drug Use: No - Living Situation & Occupation Living situation: Reports: , Alone Occupation: Unemployed ED ROS GENERAL - Review of Systems Review Of Systems: See Below Constitutional: Reports: Chills. Denies: Fever HEENT: Reports: No Symptoms Respiratory: Denies: Shortness of Breath Cardiovascular: Denies: Chest Pain GI/Abdominal: Denies: Abdominal Pain, Constipation, Diarrhea, Nausea, Vomiting : Reports: Other (bladder prolapse). Denies: Dysuria, Flank Pain, Frequency Musculoskeletal: Reports: Foot Pain (bottom of both feet) Skin: Reports: No Symptoms Neurological: Reports: No Symptoms Psychiatric: Reports: Anxiety Hematologic/Lymphatic: Reports: No Symptoms Immunologic: Reports: No Symptoms ED EXAM, GENERAL - Physical Exam Exam: See Below Exam Limited By: No Limitations General Appearance: Alert, WD/WN, No Apparent Distress, Anxious Eye Exam: Bilateral Eye: EOMI, Normal Inspection, PERRL Throat/Mouth: Normal Inspection, Normal Lips, Normal Teeth, Normal Gums, Normal Oropharynx, Normal Voice, No Airway Compromise Head: Atraumatic, Normocephalic, Sinus Tenderness Respiratory/Chest: No Respiratory Distress, Lungs Clear, Normal Breath Sounds, No Accessory Muscle Use, Chest Non-Tender Cardiovascular: Normal Peripheral Pulses, Regular Rate, Rhythm, No Edema, No Murmur Peripheral Pulses: 3+: Radial (L), Radial (R), Dorsalis Pedis (L), Dorsalis Pedis (R) GI/Abdominal: Normal Bowel Sounds, Soft, Non-Tender, No Distention, No Mass Extremities: Normal Inspection, Normal Capillary Refill Neurological: Alert, Oriented, Normal Cognition, No Motor/Sensory Deficits Psychiatric: Anxious Skin Exam: Warm, Dry, Intact, Normal Color, No Rash Course - Vital Signs Last Recorded V/S: Last Vital Signs Temp 97.7 F 03/31/19 12:30 Pulse 62 03/31/19 12:30 Resp 18 03/31/19 12:30 BP 153/89 H 03/31/19 12:30 Pulse Ox 99 03/31/19 12:30 - Re-Assessments/Exams Free Text/Narrative Re-Assessment/Exam: 03/31/19 13:26 Patient presents to the ED for the evaluation of multiple complaints. I did talk with her for roughly 15 minutes, and She does not have any thing specifically to focus on, and appears overly anxious again. She states that she stopped taking the doxepin as previously prescribed, she states she was taking and initially, but stopped taking this. I did urge her to try to start taking the doxepin once again. She states she will comply with this. Due to her foot pain, I believe this might be some sort of plantar fasciitis in nature , I did recommend that she uses golf ball as previously told by the 1 chiropractor she saw to see if this helps relieve her pain. She is to keep taking her Bentyl and Xanax as prescribed, follow up with Dr. saavedra on Friday , and the GI doctor next week, and Dr. Stovall at in the month regarding her prolapse. The patient was feeling better at the end of our conversation. Departure - Departure Time of Disposition: 13:04 Disposition: Home, Self-Care 01 Condition: Fair Clinical Impression: Chills (without fever), Anxiety about health, Foot pain, bilateral Abdominal pain Qualifiers: Abdominal location: generalized Qualified Code(s): R10.84 - Generalized abdominal pain - Discharge Information Instructions: Generalized Anxiety Disorder, Adult Referrals: Jerson Rosales MD [Primary Care Provider] - Forms: ED Department Discharge Additional Instructions: You were evaluated in the ER today regarding her feelings of being chilled, abdominal pain, and pain on the bottoms of the feet. We did have a lengthy discussion, I recommend that you start taking the doxepin once again as previously prescribed to help provide long-term anxiety relief. This should take 4-6 weeks to provide the most benefit, please keep taking this medication unless told otherwise by your primary care provider. Regarding the pains on the bottom of the feet, it sounds as if he might have plantar fasciitis, please start using the golf balls on the bottom of the feet to help provide relief from this, you may also use frozen water bottles if this helps. Regarding your abdominal pain and problems with a prolapsed bladder, a little bit of bleeding is likely due to irritation from the prolapse, however if you are changing pads more than every 2 hours, this may cause for concern for too much bleeding and you should seek care for management of this. Please follow- up with Dr. Cummings at the end of the month as previously scheduled. No laboratory evaluation was done at today's visit, as your physical exam was within normal limits, and there was no concern for any obvious bacterial infection or anemia. Recommend that you follow up with Dr. Saavedra this coming Friday after previously scheduled appointment for consultation, I believe this would be of benefit to you, for help with your anxiety. Please try to increase your exercise activity, as this will also help you feel better, and hopefully help your feelings of being chilled. Please return to the ED if your symptoms change or worsen.
== END 2019-03-31 13:20 | disposition home or self-care (01) ==
LOC: JD.ED 11:57
DX: R10.84 Generalized abdominal pain (principal); M79.671 Pain in right foot; M79.672 Pain in left foot; F41.9 Anxiety disorder, unspecified; R68.83 Chills (without fever); F32.9 Major depressive disorder, single episode, unspecified; F17.210 Nicotine dependence, cigarettes, uncomplicated; Z88.8 Allergy status to other drugs, medicaments and biological substances; Z88.1 Allergy status to other antibiotic agents; Z91.030 Bee allergy status; Z79.899 Other long term (current) drug therapy
CPT/HCPCS: 99283

== ENCOUNTER 2019-04-01 14:52 | Emergency (ER) | payer MEDICARE, OTHER ==
[2019-04-01 15:10] VITALS: BP 167/92; PULSE 73
--- NOTE | 2019-04-01 15:26 | EDM.PDOC ---
ED HPI GENERAL MEDICAL PROBLEM - General Chief Complaint: Skin Complaint Stated Complaint: BODY ACHES Time Seen by Provider: 04/01/19 15:24 Source of Information: Reports: Patient, Family (friend ) History Limitations: Reports: No Limitations - History of Present Illness INITIAL COMMENTS - FREE TEXT/NARRATIVE: 63-year-old female Generalized Pain Score (Numeric/FACES): 7 - Related Data Allergies Allergy/AdvReac Type Severity Reaction Status Date / Time amlodipine Allergy Swelling Verified 03/31/19 12:33 amoxicillin Allergy Chest Verified 03/31/19 12:33 Tightness benzocaine Allergy Not Listed Verified 03/31/19 12:33 cortisone Allergy Red Rash Verified 03/31/19 12:33 venom-honey bee Allergy Redness Verified 03/31/19 12:33 [bee venom (honey bee)] and Swelling Corepivicaine Allergy Not Listed Uncoded 03/31/19 12:33 isocaine 2% w/Levonordefien Allergy Not Listed Uncoded 03/31/19 12:33 1:20K Home Meds: Home Meds Doxepin [SINEquan] 50 mg PO DAILY 01/11/19 [History] ALPRAZolam [Xanax] 0.5 mg PO TID PRN #20 tablet 01/29/19 [Rx] Dicyclomine [Bentyl] 20 mg PO QID PRN 03/07/19 [History] Doxycycline [Vibramycin] 100 mg PO DAILY #20 cap 04/01/19 [Rx] Past Medical History HEENT History: Reports: Other (See Below) Other HEENT History: dental history-allergies to numbning medication Cardiovascular History: Reports: Heart Murmur Respiratory History: Reports: None Gastrointestinal History: Reports: Hiatal Hernia Other Genitourinary History: Pt thinks her bladder is prolapsing. Intermittent bleeding per vagina suggesting cervical inflammation. Constant suprapubic pressure discomfort. APPLICATION ANALYST History: Reports: Other (See Below) Other APPLICATION ANALYST History: uterian prolapse, breast lumptectomy Musculoskeletal History: Reports: None Neurological History: Reports: None Psychiatric History: Reports: Anxiety, Depression, Panic Attack Other Psychiatric History: chronic anxiety Endocrine/Metabolic History: Reports: None Hematologic History: Reports: None Immunologic History: Reports: None Oncologic (Cancer) History: Reports: Other (See Below) Other Oncologic History: benign tumors from breasts removed Dermatologic History: Reports: None - Infectious Disease History Infectious Disease History: Reports: Chicken Pox, Measles, Rubella Other Infectious Disease History: armenian measles. - Past Surgical History Head Surgeries/Procedures: Reports: None HEENT Surgical History: Reports: Oral Surgery Oncologic Surgical History: Reports: Biopsy of Breast Social & Family History - Family History Family Medical History: Noncontributory - Tobacco Use Smoking Status *Q: Current Every Day Smoker Tobacco Use Within Last Twelve Months: Cigarettes Years of Tobacco use: 30 Packs/Tins Daily: 0.2 - Caffeine Use Caffeine Use: Reports: Soda Other Caffeine Use: natural products - Recreational Drug Use Recreational Drug Use: No - Living Situation & Occupation Living situation: Reports: , Alone Occupation: Unemployed ED ROS GENERAL - Review of Systems Review Of Systems: See Below Constitutional: Reports: Fever, Chills, Malaise, Weakness, Fatigue, Decreased Appetite HEENT: Reports: No Symptoms Respiratory: Reports: Cough (From cigarette smoking.). Denies: Shortness of Breath, Wheezing, Pleuritic Chest Pain Cardiovascular: Reports: Blood Pressure Problem, Dyspnea on Exertion, Lightheadedness. Denies: Chest Pain, Claudication, Edema, Orthopnea (Chronic hypertension.), Palpitations Endocrine: Reports: Fatigue GI/Abdominal: Reports: Constipation (Occasional problems), Decreased Appetite : Reports: Frequency, Other (Intermittent bleeding per vagina. It is felt that she has a uterine prolapse with the cervix low-lying causing the bleeding. She has no appointment to see Dr. Lucille Stovall at the end of this month.) Musculoskeletal: Reports: Muscle Pain (Complains of generalized myalgia.) Skin: Reports: Other (She has an ingrown right great toenail particularly on the medial and lateral aspects. Is tender to palpation.) Neurological: Reports: No Symptoms Psychiatric: Reports: Anxiety (Chronic depression), Depression Hematologic/Lymphatic: Reports: No Symptoms Immunologic: Reports: No Symptoms ( chronic anxiety disorder.) ED EXAM, SKIN/RASH Exam: See Below Exam Limited By: No Limitations General Appearance: Alert, WD/WN, No Apparent Distress, Other (She does feel kind of warm to palpation. Nurses record temperatures 36.7. Pulse is 73 and sinus respiratory is 20 BP is elevated at 167/92.) Eye Exam: Bilateral Eye: Normal Fundi, Periorbital Changes Ears: Normal External Exam, Normal Canal, Normal TMs, Other (Patient has some hearing loss and some tinnitus.) Throat/Mouth: Normal Lips, Other Head: Atraumatic (Oropharynx is diffusely erythematous from cigarette smoking no signs of infection.), Normocephalic Neck: Normal Inspection, Supple, Non-Tender, Full Range of Motion. No: Lymphadenopathy (L), Lymphadenopathy (R), Thyromegaly Respiratory/Chest: Lungs Clear, Normal Breath Sounds, Respiratory Distress ( Mild tachypnea but more to do with being anxious.), Decreased Breath Sounds ( Breath sounds are mildly diminished in both lower bases compatible with early emphysema changes.). No: Rales, Rhonchi ( No adventitial sounds noted.), Wheezing Cardiovascular: Normal Peripheral Pulses, Regular Rate, Rhythm, No Gallop, No Murmur, No Rub Peripheral Pulses: 2+: Posterior Tibial (L), Posterior Tibial (R), Dorsalis Pedis (L), Dorsalis Pedis (R) GI/Abdominal: Normal Bowel Sounds, Soft, No Organomegaly, No Abnormal Bruit, No Mass, Pelvis Stable, Tender. No: Guarding, Rigid, Rebound Back Exam: Normal Inspection, Full Range of Motion. No: CVA Tenderness (L), CVA Tenderness (R) Extremities: Normal Inspection, Normal Range of Motion, Non-Tender, No Pedal Edema, Normal Capillary Refill Neurological: Alert, Oriented, CN II-XII Intact, Normal Cognition, Normal Reflexes Psychiatric: Anxious (Mildly anxious.), Flat Affect Skin: Other (Patient does have a ingrown right great toenail particular in the medial aspect. Slightly erythematous. There is no lymphangitis. She has bilateral significant varicosities both lower extremities. The right leg is a little more edematous than the right.) Location, Skin: Other (Paronychia infection right great toenail.) Associated features: Warmth, Tenderness, Swelling, Induration, Inflammation ( Mild). No: Scaling, Lymphangitis (Mild) Course - Vital Signs Last Recorded V/S: Last Vital Signs Temp 36.7 C 04/01/19 15:07 Pulse 73 04/01/19 15:07 Resp 20 04/01/19 15:07 BP 167/92 H 04/01/19 15:07 Pulse Ox - Orders/Labs/Meds Orders: Active Orders 24 hr Category Date Time Status Chest 1V Frontal [CR] Stat Exams 04/01/19 15:26 Taken Labs: Laboratory Tests 04/01/19 04/01/19 04/01/19 Range/Units 15:36 15:45 15:45 WBC 9.06 (3.98-10.04) K/mm3 RBC 5.21 (3.98-5.22) M/mm3 Hgb 16.8 H D (11.2-15.7) gm/dl Hct 47.9 H (34.1-44.9) % MCV 91.9 (79.4-94.8) fl MCH 32.2 (25.6-32.2) pg MCHC 35.1 (32.2-35.5) g/dl RDW Std Deviation 42.9 (36.4-46.3) fL Plt Count 389 H (182-369) K/mm3 MPV 8.6 L (9.4-12.3) fl Neut % (Auto) 67.1 (34.0-71.1) % Lymph % (Auto) 22.4 (19.3-51.7) % [place] % (Auto) 7.1 (4.7-12.5) % Eos % (Auto) 2.2 (0.7-5.8) Baso % (Auto) 1.0 (0.1-1.2) % Neut # (Auto) 6.08 (1.56-6.13) K/mm3 Lymph # (Auto) 2.03 (1.18-3.74) K/mm3 [place] # (Auto) 0.64 H (0.24-0.36) K/mm3 Eos # (Auto) 0.20 (0.04-0.36) K/mm3 Baso # (Auto) 0.09 H (0.01-0.08) K/mm3 Sodium 136 D (136-145) mEq/L Potassium 3.4 L (3.5-5.1) mEq/L Chloride 102 D (98-107) mEq/L Carbon Dioxide 27 (21-32) mEq/L Anion Gap 10.4 (5-15) BUN 9 (7-18) mg/dL Creatinine 0.9 (0.55-1.02) mg/dL Est Cr Clr Drug Dosing 46.86 mL/min Estimated GFR (MDRD) > 60 (>60) mL/min BUN/Creatinine Ratio 10.0 L (14-18) Glucose 80 (80-115) mg/dL Calcium 9.3 (8.5-10.1) mg/dL Total Bilirubin 0.5 (0.2-1.0) mg/dL AST 33 (15-37) U/L ALT 42 (14-59) U/L Alkaline Phosphatase 73 (46-116) U/L C-Reactive Protein < 0.2 (<1.0) mg/dL Total Protein 7.6 (6.4-8.2) g/dl Albumin 4.2 (3.4-5.0) g/dl Globulin 3.4 gm/dL Albumin/Globulin Ratio 1.2 (1-2) TSH 3rd Generation 1.515 (0.358-3.74) uIU/mL Urine Color Yellow (Yellow) Urine Appearance Clear (Clear) Urine pH 6.5 (5.0-8.0) Ur Specific [place] <=1.005 (1.005-1.030) Urine Protein Negative (Negative) Urine Glucose (UA) Negative (Negative) Urine Ketones Negative (Negative) Urine Occult Blood Negative (Negative) Urine Nitrite Negative (Negative) Urine Bilirubin Negative (Negative) Urine Urobilinogen 0.2 (0.2-1.0) Ur Leukocyte Esterase Trace H (Negative) Urine RBC 0-5 (0-5) /hpf Urine WBC 0-5 (0-5) /hpf Ur Squamous Epith Cells 0-5 (0-5) /hpf Urine Bacteria Not seen (FEW) /hpf Urine Mucus Not seen (FEW) /hpf - Radiology Interpretation Free Text/Narrative:: 63-year-old female presents to the ED due to generally not feeling well starting yesterday. She is complaining of diffuse myalgia. Decreased appetite. Did have some chills earlier this morning. She took Tylenol by mouth about an hour ago. She does feel mildly warm to palpation. She has a smoker's cough but denies cough any worse than normal. The history suggests that she likely has a prolapsed uterus and is getting some bleeding per vagina likely from cervical erosion. She schedule see gynecology the end of this month. This places him at risk of development of urinary tract infection. Plan routine labs will be obtained without blood cultures as she is minimally warm to palpation at this time. Analysis is and a chest x-ray and a CRP. TSH will also be done. She does have a infection of her right great toenail which is mild at this time certainly not enough to give her fever or chills. - Re-Assessments/Exams Free Text/Narrative Re-Assessment/Exam: 04/01/19 16:16 The labs reveal a normal white count at 9.06. The auto differential 67% neutrophils. Hemoglobin is 16.8 with hematocrit of 47.9 suggesting the patient is hemoconcentrated. MCV is normal at 91.9. Platelet count slightly elevated 389,000. Urinalysis shows trace of leukocyte esterase but no pus cells on the micro. Chest x-ray reveals hyperinflated lung burrell with mild diffuse pulmonary fibrosis and basis which appear to be chronic. There is no acute infective process. Cardiac silhouette is normal. Patient does not have an IV in and does not want one. She'll therefore be for be given Gatorade to drink to try and provide rehydration. 04/01/19 17:00 Chemistry is now back showing a sodium of 136. Potassium slightly low at 3.4. Chloride 102 with a bicarbonate 27. Anion gap is 10.4. BUN is 10 with a creatinine of 0.9. GFR remains greater than 60. Glucose is 80 with a calcium of 9.3. Liver function is normal. C-reactive protein is less than 0.2. TSH is 1.5. Departure - Departure Time of Disposition: 17:06 Disposition: Home, Self-Care 01 Condition: Fair Clinical Impression: Viral syndrome, Paronychia due to ingrown nail - Discharge Information *PRESCRIPTION DRUG MONITORING PROGRAM REVIEWED*: Not Applicable *COPY OF PRESCRIPTION DRUG MONITORING REPORT IN PATIENT LINDA: Not Applicable Prescriptions: Doxycycline [Vibramycin] 100 mg PO DAILY #20 cap Referrals: Jerson Rosales MD [Primary Care Provider] - Forms: ED Department Discharge Additional Instructions: Evaluation in the emergency room today in regards to just generally not feeling well. You were initially felt to have a low-grade fever on initial assessment therefore lab work was done. Labs revealed no signs of a bacterial infection. The chest x-ray shows signs and symptoms of emphysema change from smoking. Infection however. Urinalysis also came back normal. There is infection in your right great toenail and you do need an antibiotic called doxycycline 100 mg twice daily for the next 10 days to clear this infection up. You may continue to use Tylenol 650 mg every 4-6 hours as necessary for fever relief and body ache relief. Motrin 600 mg every 6 hours may also be used for pain and inflammation relief. You were found to be mildly dehydrated on examination today. This is mostly identified on your lab tests. Suggest drinking a Powerade or Gatorade at least 20 ounces daily to maintain hydration. Return to medical care if you develop high fever greater than 102 or worsening chills over the next 48 hours. - My Orders Last 24 Hours: My Active Orders 04/01/19 15:26 Chest 1V Frontal [CR] Stat - Assessment/Plan Last 24 Hours: My Active Orders 04/01/19 15:26 Chest 1V Frontal [CR] Stat
--- NOTE | 2019-04-01 17:20 | CR ---
Chest: Portable view of the chest was obtained. Comparison: Prior chest x-ray of 06/19/15. Heart size and mediastinum are within normal limits for portable technique. Lungs are clear with no acute parenchymal change. Emphysematous change is present. Impression: 1. Emphysematous change. Nothing acute is otherwise seen on portable chest x-ray. Diagnostic code #2
== END 2019-04-01 17:22 | disposition home or self-care (01) ==
LOC: JD.ED 14:52
DX: B34.9 Viral infection, unspecified (principal); L03.031 Cellulitis of right toe; L60.0 Ingrowing nail; F41.9 Anxiety disorder, unspecified; F17.210 Nicotine dependence, cigarettes, uncomplicated; Z88.8 Allergy status to other drugs, medicaments and biological substances; Z88.1 Allergy status to other antibiotic agents; Z88.4 Allergy status to anesthetic agent; Z91.030 Bee allergy status
CPT/HCPCS: 36415; 71045; 71045-26; 80053; 81001; 84443; 85025; 86140; 99283; 99283-25

== ENCOUNTER 2019-04-02 15:49 | Emergency (ER) | payer MEDICARE, OTHER ==
[2019-04-02 16:04] VITALS: BP 164/91; PULSE 90
--- NOTE | 2019-04-02 17:14 | EDM.PDOC ---
ED HPI GENERAL MEDICAL PROBLEM - General Chief Complaint: Lower Extremity Injury/Pain Stated Complaint: FOOT INFECTION Time Seen by Provider: 04/02/19 16:47 Source of Information: Reports: Patient History Limitations: Reports: No Limitations - History of Present Illness INITIAL COMMENTS - FREE TEXT/NARRATIVE: Ms. Rajan is a very pleasant 63-year-old woman with a past medical history significant for anxiety, depression, and panic disorder, who states that she has been experiencing right great and second toe pain for approximately 2 years , but that is progressively getting worse. She states that she has not had a prior medical evaluation for it, other than here in the ED, but that she has an appointment to see a Wet Sander this coming or 04/08/2019 or . Medical records indicate that the patient was seen in this ED on 03/31/2019 for a number of issues, including her foot pain. Among other diagnoses, she was thought to have plantar fasciitis, and was recommended to use golf balls or frozen water bottles to the bottom of her feet. She was then seen again yesterday, 04/01/2019, again for numerous complaints, including pain to her right great toenail. She was thought to have an infection of the right great toenail, and was prescribed doxycycline 100 mg po BID x 10 days. The patient states that she has filled the prescription for the doxycycline, but she has not yet started taking it. She states that she called the our ED this morning and was told that she should come in, that someone here would be able to fix her toes. She is under the impression that the Wet Sander works here in the ED. The patient's PCP is Dr. Jerson Soto. The patient's Wet Sander will be Dr. Kvng Piña. Her Psychiatrist is Dr. Ashanti Saavedra. The patient has an appointment to see Dr. Saavedra on 04/07/2019. Her Welt Trimming Machine Operator is in [place]. She has an appointment to see him next week. The patient has seen both Dr. Jorge Beatty and Dr. Paul Mathur in the past, but her current Missileman is Dr. Lucille Rivera. Right Foot Pain Score (Numeric/FACES): 8 - Related Data Allergies Allergy/AdvReac Type Severity Reaction Status Date / Time amlodipine Allergy Swelling Verified 04/02/19 15:57 amoxicillin Allergy Chest Verified 04/02/19 15:57 Tightness benzocaine Allergy Not Listed Verified 04/02/19 15:57 cortisone Allergy Red Rash Verified 04/02/19 15:57 venom-honey bee Allergy Redness Verified 04/02/19 15:57 [bee venom (honey bee)] and Swelling Corepivicaine Allergy Not Listed Uncoded 04/02/19 15:57 isocaine 2% w/Levonordefien Allergy Not Listed Uncoded 04/02/19 15:57 1:20K Home Meds: Home Meds Doxepin [SINEquan] 50 mg PO DAILY 01/11/19 [History] ALPRAZolam [Xanax] 0.5 mg PO TID PRN #20 tablet 01/29/19 [Rx] Dicyclomine [Bentyl] 20 mg PO QID PRN 03/07/19 [History] Doxycycline [Vibramycin] 100 mg PO DAILY #20 cap 04/01/19 [Rx] Past Medical History Gastrointestinal History: Reports: GERD (untreated), Hiatal Hernia Genitourinary History: Reports: Other (See Below) (Prolapsed bladder) Psychiatric History: Reports: Anxiety, Depression, Panic Attack - Infectious Disease History Infectious Disease History: Reports: Chicken Pox, Measles, Rubella - Past Surgical History HEENT Surgical History: Reports: Oral Surgery (wisdom teeth extraction) Oncologic Surgical History: Reports: Biopsy of Breast (left, benign) Social & Family History - Family History Family Medical History: Noncontributory - Tobacco Use Smoking Status *Q: Current Every Day Smoker Years of Tobacco use: 47 Packs/Tins Daily: 0.3 - Caffeine Use Caffeine Use: Reports: Soda Other Caffeine Use: natural products - Alcohol Use Alcohol Use History: No - Recreational Drug Use Recreational Drug Use: No - Living Situation & Occupation Living situation: Reports: , Alone Occupation: Unemployed Review of Systems - Review of Systems Review Of Systems: ROS reveals no pertinent complaints other than HPI. ED EXAM, GENERAL - Physical Exam Exam: See Below Exam Limited By: No Limitations General Appearance: Alert, WD/WN, No Apparent Distress Extremities: Other (There is erythema and some callus development to the lateral aspect of the patient's right great toe and the medial aspect of her right second toe, where the toes rub. There is some associated erythema, but no obvious infection. The remaining toes appear to be within normal limits. There is a similar, but milder appearance to the left great and second toes, as well, with minimal associated erythema. Neurovascular status of both lower extremities is intact.) Course - Vital Signs Last Recorded V/S: Last Vital Signs Temp 37.4 C 04/02/19 15:58 Pulse 90 04/02/19 15:58 Resp 17 04/02/19 15:58 BP 164/91 H 04/02/19 15:58 Pulse Ox 100 04/02/19 15:58 - Re-Assessments/Exams Free Text/Narrative Re-Assessment/Exam: 04/02/19 17:09 On examination, the patient appears to have chafing and some erythema to the lateral side of her right great toe and the medial side of her right second toe , likely because of too-narrow shoes. I placed Band-Aids around both of her toes so that the Band-Aids rub against each other instead of the skin. I am recommending that she start taking the doxycycline that she states that she filled earlier today, then follow-up with Dr. Piña next week. I suggested she look into getting some wider shoes, as well. The patient will be discharged home with some Band-Aids. Departure - Departure Time of Disposition: 17:11 Disposition: Home, Self-Care 01 Condition: Good Clinical Impression: Chafing - Discharge Information *PRESCRIPTION DRUG MONITORING PROGRAM REVIEWED*: Not Applicable *COPY OF PRESCRIPTION DRUG MONITORING REPORT IN PATIENT LINDA: Not Applicable Referrals: Jerson Rosales MD [Primary Care Provider] - Kvng Piña II, DPM [Physician] - Jorge Beatty MD [Physician] - Paul Mathur MD [Physician] - Lucille Rivera MD [Physician] - Ashanti Saavedra MD [Ordering Only Provider] - Forms: ED Department Discharge Additional Instructions: You were seen in the emergency room for continued pain to your right big and second toe. On examination, the toes appear to be chasing each other, likely because your shoes are too narrow. Band-Aids were placed around both of your toes to prevent them from rubbing against each other. We recommend that you feet clean and dry, and reapply Band-Aids to each of your toes daily. We recommend that you look into getting wider shoes. We recommend that you start taking the doxycycline (the antibiotic that you were prescribed yesterday), twice a day, as prescribed. We recommend that you follow-up with the Wet Sander Dr. Kvng Piña at your previously scheduled appointment next week. If any other problems, please do not hesitate to return to the ER.
== END 2019-04-02 17:24 | disposition home or self-care (01) ==
LOC: JD.ED 15:49
DX: L30.4 Erythema intertrigo (principal); F41.9 Anxiety disorder, unspecified; F32.9 Major depressive disorder, single episode, unspecified; F17.210 Nicotine dependence, cigarettes, uncomplicated; Z88.8 Allergy status to other drugs, medicaments and biological substances; Z88.0 Allergy status to penicillin; Z88.4 Allergy status to anesthetic agent; Z91.030 Bee allergy status; Z79.899 Other long term (current) drug therapy
CPT/HCPCS: 99283

== ENCOUNTER 2019-04-05 17:10 | Emergency (ER) | payer MEDICARE, OTHER ==
[2019-04-05 17:27] VITALS: BP 151/95; PULSE 103
--- NOTE | 2019-04-05 17:45 | EDM.PDOC ---
ED HPI GENERAL MEDICAL PROBLEM - General Chief Complaint: Abdominal Pain Stated Complaint: STOMACH PAIN Time Seen by Provider: 04/05/19 17:20 Source of Information: Reports: Patient History Limitations: Reports: No Limitations - History of Present Illness INITIAL COMMENTS - FREE TEXT/NARRATIVE: The patient presents with lower abdominal pain. This has been going on for a few days. She has no nausea or vomiting. She has no fever, chills or cough. She has no dysuria or diarrhea. She says she has a "bladder prolapse" and she is seeing Dr Sullivan in a few days. Onset: Gradual Duration: Day(s): Location: Reports: Abdomen Quality: Reports: Sharp Severity: Moderate Improves with: Reports: None Worsens with: Reports: None Associated Symptoms: Denies: Chest Pain, Cough, Fever/Chills, Headaches, Nausea/ Vomiting, Shortness of Breath Abdominal Pain Score (Numeric/FACES): 7 - Related Data Allergies Allergy/AdvReac Type Severity Reaction Status Date / Time amlodipine Allergy Swelling Verified 04/05/19 17:27 amoxicillin Allergy Chest Verified 04/05/19 17:27 Tightness benzocaine Allergy Not Listed Verified 04/05/19 17:27 cortisone Allergy Red Rash Verified 04/05/19 17:27 venom-honey bee Allergy Redness Verified 04/05/19 17:27 [bee venom (honey bee)] and Swelling Corepivicaine Allergy Not Listed Uncoded 04/02/19 15:57 isocaine 2% w/Levonordefien Allergy Not Listed Uncoded 04/02/19 15:57 1:20K Home Meds: Home Meds Doxepin [SINEquan] 50 mg PO DAILY 01/11/19 [History] ALPRAZolam [Xanax] 0.5 mg PO TID PRN #20 tablet 01/29/19 [Rx] Dicyclomine [Bentyl] 20 mg PO QID PRN 03/07/19 [History] Doxycycline [Vibramycin] 100 mg PO DAILY #20 cap 04/01/19 [Rx] Past Medical History HEENT History: Reports: Other (See Below) Other HEENT History: dental history-allergies to numbning medication Cardiovascular History: Reports: Heart Murmur Respiratory History: Reports: None Gastrointestinal History: Reports: GERD, Hiatal Hernia Genitourinary History: Reports: Other (See Below) Other Genitourinary History: Pt thinks her bladder is prolapsing. Intermittent bleeding per vagina suggesting cervical inflammation. Constant suprapubic pressure discomfort. 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) Other STORE KEEPER History: uterian prolapse, breast lumptectomy Musculoskeletal History: Reports: None Neurological History: Reports: None Psychiatric History: Reports: Anxiety, Depression, Panic Attack Other Psychiatric History: chronic anxiety Endocrine/Metabolic History: Reports: None Hematologic History: Reports: None Immunologic History: Reports: None Oncologic (Cancer) History: Reports: Other (See Below) Other Oncologic History: benign tumors from breasts removed Dermatologic History: Reports: None - Infectious Disease History Infectious Disease History: Reports: Chicken Pox, Measles, Rubella Other Infectious Disease History: [place] measles. - Past Surgical History Head Surgeries/Procedures: Reports: None HEENT Surgical History: Reports: Oral Surgery Oncologic Surgical History: Reports: Biopsy of Breast Social & Family History - Family History Family Medical History: Noncontributory - Tobacco Use Smoking Status *Q: Never Smoker - Caffeine Use Caffeine Use: Reports: Soda Other Caffeine Use: natural products - Living Situation & Occupation Living situation: Reports: , Alone Occupation: Unemployed ED ROS GENERAL - Review of Systems Review Of Systems: See Below Constitutional: Reports: No Symptoms HEENT: Reports: No Symptoms Respiratory: Reports: No Symptoms Cardiovascular: Reports: No Symptoms Endocrine: Reports: No Symptoms GI/Abdominal: Reports: Abdominal Pain. Denies: Nausea, Vomiting : Reports: No Symptoms Musculoskeletal: Reports: No Symptoms ED EXAM, GI/ABD - Physical Exam Exam: See Below Exam Limited By: No Limitations General Appearance: Alert, No Apparent Distress Ears: Normal External Exam Nose: Normal Inspection Head: Atraumatic, Normocephalic Neck: Normal Inspection Respiratory/Chest: No Respiratory Distress, Lungs Clear, Normal Breath Sounds Cardiovascular: Regular Rate, Rhythm, No Edema, No Murmur GI/Abdominal Exam: Soft, Non-Tender, No Organomegaly, No Mass Back Exam: Normal Inspection Course - Vital Signs Last Recorded V/S: Last Vital Signs Temp 97.4 F 04/05/19 17:21 Pulse 103 H 04/05/19 17:21 Resp 16 04/05/19 17:21 BP 151/95 H 04/05/19 17:21 Pulse Ox 98 04/05/19 17:21 Departure - Departure Time of Disposition: 17:45 Disposition: Home, Self-Care 01 Condition: Good Clinical Impression: Abdominal pain Qualifiers: Abdominal location: lower abdomen, unspecified Qualified Code(s): R10.30 - Lower abdominal pain, unspecified - Discharge Information *PRESCRIPTION DRUG MONITORING PROGRAM REVIEWED*: No *COPY OF PRESCRIPTION DRUG MONITORING REPORT IN PATIENT LINDA: No Referrals: Jerson Rosales MD [Primary Care Provider] - Additional Instructions: Take your medication as prescribed. Try to eat more. Try ensure of boost. Follow up with Dr Chowdhury and Dr Sullivan.
== END 2019-04-05 17:40 | disposition home or self-care (01) ==
LOC: JD.ED 17:10
DX: R10.30 Lower abdominal pain, unspecified (principal); F32.9 Major depressive disorder, single episode, unspecified; F41.9 Anxiety disorder, unspecified; Z88.8 Allergy status to other drugs, medicaments and biological substances; Z88.0 Allergy status to penicillin; Z88.4 Allergy status to anesthetic agent; Z91.030 Bee allergy status; Z79.899 Other long term (current) drug therapy
CPT/HCPCS: 99282; 99283

== ENCOUNTER 2019-04-06 10:59 | Emergency (ER) | payer MEDICARE, OTHER ==
[2019-04-06 11:08] VITALS: BP 188/100; PULSE 83
--- NOTE | 2019-04-06 13:02 | EDM.PDOC ---
<Ora Randall - Last Filed: 04/06/19 13:02> ED HPI GENERAL MEDICAL PROBLEM - General Chief Complaint: Genitourinary Problem Stated Complaint: BLADDER PAIN Time Seen by Provider: 04/06/19 12:33 Source of Information: Reports: Patient History Limitations: Reports: No Limitations - History of Present Illness INITIAL COMMENTS - FREE TEXT/NARRATIVE: Hillary is a pleasant 63 year old female who presents to the ED today c/o bladder prolapse and high levels of stress. The patient has an appointment with Dr. Rivera on to address the bladder prolapse. She has attempted to have a pessary placed in the past but it was unsuccessful and caused her to bleed. Per patient, she was told to put coconut oil in and around her vagina to keep it moisturized. She has also been using vinegar to rinse her vagina out because it is a "disinfectant." She does feel as though sometimes she is unable to completely void her bladder. She is having some intermittent spotting but is using less than a pad a day. Now that she is in the ED and out of her apartment, she states that she no longer feels stressed. She did take 0.5 mg of xanax while in triage and believes that and a combination of being out of her apartment has relieved her stress. Hillary also wanted to talk about her paronychia on her right foot. She was seen in the ED for it yesterday and was prescribed doxycycline. She has not taken the doxy as of yet but as been soaking her foot in warm water and epsom salt and feels this has been helping. She denies any pain, swelling or redness on her toes since starting the epsom salt soaks. Onset: Gradual - Related Data Allergies Allergy/AdvReac Type Severity Reaction Status Date / Time amlodipine Allergy Swelling Verified 04/06/19 11:02 amoxicillin Allergy Chest Verified 04/06/19 11:02 Tightness benzocaine Allergy Not Listed Verified 04/06/19 11:02 cortisone Allergy Red Rash Verified 04/06/19 11:02 venom-honey bee Allergy Redness Verified 04/06/19 11:02 [bee venom (honey bee)] and Swelling Corepivicaine Allergy Not Listed Uncoded 04/02/19 15:57 isocaine 2% w/Levonordefien Allergy Not Listed Uncoded 04/02/19 15:57 1:20K Home Meds: Home Meds ALPRAZolam [Xanax] 0.5 mg PO TID PRN #20 tablet 01/29/19 [Rx] Dicyclomine [Bentyl] 20 mg PO QID PRN 03/07/19 [History] ED ROS GENERAL - Review of Systems Review Of Systems: See Below Constitutional: Reports: No Symptoms HEENT: Reports: No Symptoms Respiratory: Reports: No Symptoms Cardiovascular: Reports: No Symptoms Endocrine: Reports: No Symptoms GI/Abdominal: Reports: No Symptoms : Reports: Urinary Retention (feels she cannot completely empty her bladder when urinating ) Musculoskeletal: Reports: No Symptoms Skin: Reports: No Symptoms Neurological: Reports: No Symptoms Psychiatric: Reports: Anxiety Hematologic/Lymphatic: Reports: No Symptoms Immunologic: Reports: No Symptoms ED EXAM, RENAL/ - Physical Exam Exam: See Below Exam Limited By: No Limitations General Appearance: Alert, WD/WN, No Apparent Distress, Anxious Respiratory/Chest: No Respiratory Distress, Lungs Clear, Normal Breath Sounds, No Accessory Muscle Use, Chest Non-Tender Cardiovascular: Normal Peripheral Pulses, Regular Rate, Rhythm, No Edema, No Gallop, No JVD, No Murmur, No Rub Course - Vital Signs Last Recorded V/S: Last Vital Signs Temp 98.2 F 04/06/19 11:02 Pulse 83 04/06/19 11:02 Resp 16 04/06/19 11:02 BP 188/100 H 04/06/19 11:02 Pulse Ox 97 04/06/19 11:02 - Orders/Labs/Meds Labs: Laboratory Tests 04/06/19 Range/Units 12:25 Urine Color Yellow (Yellow) Urine Appearance Clear (Clear) Urine pH 6.0 (5.0-8.0) Ur Specific [place] 1.010 (1.005-1.030) Urine Protein Negative (Negative) Urine Glucose (UA) Negative (Negative) Urine Ketones Negative (Negative) Urine Occult Blood Negative (Negative) Urine Nitrite Negative (Negative) Urine Bilirubin Negative (Negative) Urine Urobilinogen 0.2 (0.2-1.0) Ur Leukocyte Esterase Negative (Negative) Urine RBC 0-5 (0-5) /hpf Urine WBC 0-5 (0-5) /hpf Ur Squamous Epith Cells 0-5 (0-5) /hpf Urine Bacteria Few (FEW) /hpf Urine Mucus Few (FEW) /hpf Departure - Departure Disposition: Home, Self-Care 01 Clinical Impression: Abdominal pain Qualifiers: Abdominal location: lower abdomen, unspecified Qualified Code(s): R10.30 - Lower abdominal pain, unspecified - Discharge Information Instructions: Abdominal Pain, Adult Referrals: Jerson Rosales MD [Primary Care Provider] - Forms: ED Department Discharge Additional Instructions: You were evaluated in the ED today regarding your lower abdominal pain. Please do not use vinegar in the vagina, as this can be very irritating to the skin and mucosa. You may continue to soak your toe with Epsom salt water, if it is not painful, you do not need to take the antibiotic. Please follow-up with Dr. Rivera at your next scheduled appointment on Apr 15 , regarding management of your bladder prolapse. Please return to the ED if her symptoms should change or worsen <Serenity Chapman - Last Filed: 04/06/19 13:43> ED HPI GENERAL MEDICAL PROBLEM - History of Present Illness INITIAL COMMENTS - FREE TEXT/NARRATIVE: I have read and reviewed the student's HPI and examined the patient and agree with Saritha MCGRATH-student. Bilateral Abdomen Pain Score (Numeric/FACES): 8 Past Medical History HEENT History: Reports: Other (See Below) Other HEENT History: dental history-allergies to numbning medication Cardiovascular History: Reports: Heart Murmur Respiratory History: Reports: None Gastrointestinal History: Reports: GERD, Hiatal Hernia Genitourinary History: Reports: Other (See Below) Other Genitourinary History: Pt thinks her bladder is prolapsing. Intermittent bleeding per vagina suggesting cervical inflammation. Constant suprapubic pressure discomfort. 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: uterian prolapse, breast lumptectomy Musculoskeletal History: Reports: None Neurological History: Reports: None Psychiatric History: Reports: Anxiety, Depression, Panic Attack Other Psychiatric History: chronic anxiety Endocrine/Metabolic History: Reports: None Hematologic History: Reports: None Immunologic History: Reports: None Oncologic (Cancer) History: Reports: Other (See Below) Other Oncologic History: benign tumors from breasts removed Dermatologic History: Reports: None - Infectious Disease History Infectious Disease History: Reports: Chicken Pox, Measles, Rubella Other Infectious Disease History: [place] measles. - Past Surgical History Head Surgeries/Procedures: Reports: None HEENT Surgical History: Reports: Oral Surgery Oncologic Surgical History: Reports: Biopsy of Breast Social & Family History - Family History Family Medical History: Noncontributory - Tobacco Use Smoking Status *Q: Current Every Day Smoker Years of Tobacco use: 40 Packs/Tins Daily: 0.2 - Caffeine Use Caffeine Use: Reports: Soda Other Caffeine Use: natural products - Recreational Drug Use Recreational Drug Use: No - Living Situation & Occupation Living situation: Reports: , Alone Occupation: Unemployed Course - Re-Assessments/Exams Free Text/Narrative Re-Assessment/Exam: 04/06/19 13:41 Patient presents to the ED for multiple complaints. She was assessed initially by RAMILA Ornelas-student, I do agree with her assessment and plan, I do believe that the patient is suffering from high levels of stress. She was advised to stop using the vinegar in her vagina as this can be somewhat irritating to the mucosa, she is understanding of this. She will follow up with Dr. Rivera at her next scheduled appointment for issues regarding her prolapse. Patient is agreeable to the plan we have come up with today. Patient does not appear to be acutely ill or have any other concerning complaints, she will not be given any sort of laboratory evaluation or imaging at this visit. Departure - Departure Time of Disposition: 13:00 Condition: Fair - Discharge Information *PRESCRIPTION DRUG MONITORING PROGRAM REVIEWED*: No *COPY OF PRESCRIPTION DRUG MONITORING REPORT IN PATIENT LINDA: No
== END 2019-04-06 13:07 | disposition home or self-care (01) ==
LOC: JD.ED 10:59
DX: R10.30 Lower abdominal pain, unspecified (principal); F41.9 Anxiety disorder, unspecified; F17.210 Nicotine dependence, cigarettes, uncomplicated; Z88.8 Allergy status to other drugs, medicaments and biological substances; Z88.4 Allergy status to anesthetic agent; Z91.030 Bee allergy status; Z88.1 Allergy status to other antibiotic agents; Z79.899 Other long term (current) drug therapy
CPT/HCPCS: 81001; 99284

== ENCOUNTER 2019-04-11 16:43 | Emergency (ER) | payer MEDICARE, OTHER ==
[2019-04-11 17:24] VITALS: BP 183/93; PULSE 60
--- NOTE | 2019-04-11 18:23 | EDM.PDOC ---
ED HPI GENERAL MEDICAL PROBLEM - General Chief Complaint: General Stated Complaint: CONSTANTLY COLD Time Seen by Provider: 04/11/19 17:31 Source of Information: Reports: Patient, RN Notes Reviewed History Limitations: Reports: No Limitations - History of Present Illness INITIAL COMMENTS - FREE TEXT/NARRATIVE: Patient is a 63-year-old female who presents to ED for evaluation of multiple complaints. The patient again states that she has increased anxiety and stress in her life, but she is stating now that she feels constantly cold and is not able to work herself up. This is been going on for around one week. She notes that she has been taking Bentyl, and Xanax on a regular basis, but has been taking her doxepin sporadically. She complains also of some lower abdominal pain, for which she attributes to her bladder prolapse, she states this is not changed in nature. She has been evaluated by RECREATION THERAPIST for this, and is scheduled to see Dr. Rivera again by the end of this week for further management. She states that she has a history of a toe infection, but has been using salves, this is been getting better. She believes she's had some slight nausea but no vomiting, she took half of the Xanax tablet one hour prior to arrival. She has not had any sort of fever. When asked about her urinary issues, she states she has no dysuria, no urinary frequency or urgency, but just a little bit of blood , again for which she attributes to the bladder prolapse. - Related Data Allergies Allergy/AdvReac Type Severity Reaction Status Date / Time amlodipine Allergy Swelling Verified 04/06/19 11:02 amoxicillin Allergy Chest Verified 04/06/19 11:02 Tightness benzocaine Allergy Not Listed Verified 04/06/19 11:02 cortisone Allergy Red Rash Verified 04/06/19 11:02 venom-honey bee Allergy Redness Verified 04/06/19 11:02 [bee venom (honey bee)] and Swelling Corepivicaine Allergy Not Listed Uncoded 04/02/19 15:57 isocaine 2% w/Levonordefien Allergy Not Listed Uncoded 04/02/19 15:57 1:20K Home Meds: Home Meds ALPRAZolam [Xanax] 0.5 mg PO TID PRN #20 tablet 01/29/19 [Rx] Dicyclomine [Bentyl] 20 mg PO QID PRN 03/07/19 [History] Past Medical History HEENT History: Reports: Other (See Below) Other HEENT History: dental history-allergies to numbning medication Cardiovascular History: Reports: Heart Murmur Respiratory History: Reports: None Gastrointestinal History: Reports: GERD, Hiatal Hernia Genitourinary History: Reports: Other (See Below) Other Genitourinary History: Pt thinks her bladder is prolapsing. Intermittent bleeding per vagina suggesting cervical inflammation. Constant suprapubic pressure discomfort. 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: uterian prolapse, breast lumptectomy Musculoskeletal History: Reports: None Neurological History: Reports: None Psychiatric History: Reports: Anxiety, Depression, Panic Attack Other Psychiatric History: chronic anxiety Endocrine/Metabolic History: Reports: None Hematologic History: Reports: None Immunologic History: Reports: None Oncologic (Cancer) History: Reports: Other (See Below) Other Oncologic History: benign tumors from breasts removed Dermatologic History: Reports: None - Infectious Disease History Infectious Disease History: Reports: Chicken Pox, Measles, Rubella Other Infectious Disease History: [place] measles. - Past Surgical History Head Surgeries/Procedures: Reports: None HEENT Surgical History: Reports: Oral Surgery Oncologic Surgical History: Reports: Biopsy of Breast Social & Family History - Family History Family Medical History: Noncontributory - Tobacco Use Smoking Status *Q: Current Every Day Smoker Years of Tobacco use: 30 Packs/Tins Daily: 0.2 - Caffeine Use Caffeine Use: Reports: Soda Other Caffeine Use: natural products - Recreational Drug Use Recreational Drug Use: No - Living Situation & Occupation Living situation: Reports: , Alone Occupation: Unemployed ED [facility] GENERAL - Review of Systems Review Of Systems: See Below Constitutional: Reports: Chills (x 1 week). Denies: Fever HEENT: Reports: Sinus Problem (chronic) Respiratory: Denies: Shortness of Breath Cardiovascular: Denies: Chest Pain Endocrine: Reports: No Symptoms GI/Abdominal: Reports: Abdominal Pain (lower abd/pelvi pain), Nausea. Denies: Constipation, Diarrhea, Vomiting : Reports: Pain (pelvic discomfort). Denies: Dysuria, Frequency, Urgency Musculoskeletal: Reports: No Symptoms Skin: Reports: No Symptoms Neurological: Reports: No Symptoms Psychiatric: Reports: Anxiety Hematologic/Lymphatic: Reports: No Symptoms Immunologic: Reports: No Symptoms ED EXAM, GENERAL - Physical Exam Exam: See Below Exam Limited By: No Limitations General Appearance: Alert, WD/WN, No Apparent Distress Eye Exam: Bilateral Eye: EOMI, Normal Inspection, PERRL Throat/Mouth: Normal Inspection, Normal Lips, Normal Teeth, Normal Gums, Normal Oropharynx, Normal Voice, No Airway Compromise Head: Atraumatic, Normocephalic Neck: Normal Inspection, Supple, Non-Tender, Full Range of Motion Respiratory/Chest: No Respiratory Distress, Lungs Clear, Normal Breath Sounds, No Accessory Muscle Use, Chest Non-Tender Cardiovascular: Normal Peripheral Pulses, Regular Rate, Rhythm, No Murmur Peripheral Pulses: 3+: Radial (L), Radial (R) GI/Abdominal: Normal Bowel Sounds, Soft, Non-Tender, No Distention, No Mass (Female) Exam: Deferred Extremities: Normal Inspection, Normal Capillary Refill Neurological: Alert, Oriented, Normal Cognition (pt is somewhat forgetful, but this has not increased from previous evaluations), No Motor/Sensory Deficits Psychiatric: Normal Affect, Normal Mood Skin Exam: Warm, Dry, Intact, Normal Color Course - Vital Signs Last Recorded V/S: Last Vital Signs Temp 97.1 F 04/11/19 17:21 Pulse 60 04/11/19 17:21 Resp 20 04/11/19 17:21 BP 183/93 H 04/11/19 17:21 Pulse Ox 100 04/11/19 17:21 - Orders/Labs/Meds Labs: Laboratory Tests 04/11/19 04/11/19 04/11/19 Range/Units 18:10 18:10 18:59 WBC 8.66 (3.98-10.04) K/mm3 RBC 5.11 (3.98-5.22) M/mm3 Hgb 16.3 H (11.2-15.7) gm/dl Hct 47.4 H (34.1-44.9) % MCV 92.8 (79.4-94.8) fl MCH 31.9 (25.6-32.2) pg MCHC 34.4 (32.2-35.5) g/dl RDW Std Deviation 42.8 (36.4-46.3) fL Plt Count 392 H (182-369) K/mm3 MPV 8.6 L (9.4-12.3) fl Neut % (Auto) 61.5 (34.0-71.1) % Lymph % (Auto) 26.9 (19.3-51.7) % [place] % (Auto) 8.1 (4.7-12.5) % Eos % (Auto) 2.2 (0.7-5.8) Baso % (Auto) 1.2 (0.1-1.2) % Neut # (Auto) 5.33 (1.56-6.13) K/mm3 Lymph # (Auto) 2.33 (1.18-3.74) K/mm3 Logan # (Auto) 0.70 H (0.24-0.36) K/mm3 Eos # (Auto) 0.19 (0.04-0.36) K/mm3 Baso # (Auto) 0.10 H (0.01-0.08) K/mm3 Sodium 140 (136-145) mEq/L Potassium 3.7 (3.5-5.1) mEq/L Chloride 104 (98-107) mEq/L Carbon Dioxide 29 (21-32) mEq/L Anion Gap 10.7 (5-15) BUN 11 (7-18) mg/dL Creatinine 0.9 (0.55-1.02) mg/dL Est Cr Clr Drug Dosing 46.86 mL/min Estimated GFR (MDRD) > 60 (>60) mL/min BUN/Creatinine Ratio 12.2 L (14-18) Glucose 81 (80-115) mg/dL Calcium 9.3 (8.5-10.1) mg/dL Total Bilirubin 0.6 (0.2-1.0) mg/dL AST 25 (15-37) U/L ALT 38 (14-59) U/L Alkaline Phosphatase 71 (46-116) U/L Total Protein 7.5 (6.4-8.2) g/dl Albumin 4.0 (3.4-5.0) g/dl Globulin 3.5 gm/dL Albumin/Globulin Ratio 1.1 (1-2) Urine Color Yellow (Yellow) Urine Appearance Clear (Clear) Urine pH 6.5 (5.0-8.0) Ur Specific [place] 1.010 (1.005-1.030) Urine Protein Negative (Negative) Urine Glucose (UA) Negative (Negative) Urine Ketones Negative (Negative) Urine Occult Blood Negative (Negative) Urine Nitrite Negative (Negative) Urine Bilirubin Negative (Negative) Urine Urobilinogen 0.2 (0.2-1.0) Ur Leukocyte Esterase Trace H (Negative) Urine RBC 0-5 (0-5) /hpf Urine WBC 0-5 (0-5) /hpf Ur Squamous Epith Cells 0-5 (0-5) /hpf Urine Bacteria Few (FEW) /hpf Urine Mucus Not seen (FEW) /hpf - Re-Assessments/Exams Free Text/Narrative Re-Assessment/Exam: 04/11/19 18:21 Patient presents to the ED for evaluation of multiple complaints, I believe this is mostly due to anxiety and stress, however with her feelings of being chilled, I did order CBC, CMP, urinalysis to rule out any sign of infection at this time. She did recently just have her TSH checked by Dr. Benitez on , this revealed that it was within normal limits at 1.515. Patient was initially wondering about her thyroid, I told her I would highly be likely that this would be causing issues today if it was normal 10 days ago. She is understanding of this. I did explain to the patient that taking doxepin on a regular basis, would likely help her anxiety, as this is a long-term medication , and a Xanax as well for breakthrough anxiety. Again she elicits understanding. 04/11/19 19:51 Urinalysis looks good, no sign of bacterial infection. Will discharge patient home with general recommendations. Departure - Departure Time of Disposition: 19:23 Disposition: Home, Self-Care 01 Condition: Fair Clinical Impression: Anxiety about health, Abdominal pain, chronic, generalized, Sensation of feeling cold - Discharge Information *PRESCRIPTION DRUG MONITORING PROGRAM REVIEWED*: No *COPY OF PRESCRIPTION DRUG MONITORING REPORT IN PATIENT LINDA: No Instructions: Living With Anxiety Referrals: Jerson Rosales MD [Primary Care Provider] - Forms: ED Department Discharge Additional Instructions: You were evaluated in the ER today regarding your anxiety, lower abdominal pain , and general feelings of being cold. Your laboratory evaluation demonstrated no acute bacterial infection at this time, the cold feeling you are feeling might be a change in temperature, as the weather is starting to get cooler at this time. You have been provided a copy of your lab results from the last ER visit on , your TSH (thyroid hormone level) was checked at this time, and was found to be within normal limits. Recommend that you take your doxepin as prescribed for continuing anxiety relief , this medication will take 4-6 weeks to be therapeutic for you. I do believe this would be the best medication to keep taking to keep your anxiety and check. Please follow up with RECREATION THERAPIST during this week, for further management of your bladder prolapse, and follow up with your regular doctor Jerson Soto for any other questions or concerns regarding your general health. Please return to the ED if her symptoms should change or worsen.
== END 2019-04-11 20:10 | disposition home or self-care (01) ==
LOC: JD.ED 16:43
DX: F41.9 Anxiety disorder, unspecified (principal); R10.84 Generalized abdominal pain; G89.29 Other chronic pain; R68.83 Chills (without fever); F17.210 Nicotine dependence, cigarettes, uncomplicated; Z88.1 Allergy status to other antibiotic agents; Z88.8 Allergy status to other drugs, medicaments and biological substances; Z88.4 Allergy status to anesthetic agent; Z91.030 Bee allergy status; Z79.899 Other long term (current) drug therapy
CPT/HCPCS: 36415; 80053; 81001; 85025; 99282; 99283

== ENCOUNTER 2019-04-16 10:54 | Emergency (ER) | payer MEDICARE, OTHER ==
[2019-04-16 11:07] VITALS: BP 163/114; PULSE 93
--- NOTE | 2019-04-16 11:27 | EDM.PDOC ---
ED HPI GENERAL MEDICAL PROBLEM - General Chief Complaint: Abdominal Pain Stated Complaint: STRESS, AND LOW ABD PAIN Time Seen by Provider: 04/16/19 11:01 Source of Information: Reports: Patient, RN Notes Reviewed - History of Present Illness INITIAL COMMENTS - FREE TEXT/NARRATIVE: 63 year old female with mid abd pain that has been bothering for the last 6 hours. Pain is a mild ach mid abd without radiation. Decreased appetite today. Has taken her "essential oil" types meds but has not eaten. No vomiting or diarrhea. Is not constipated. Feels very anxious. took a xanax about an hour ago. NO voiding sx. Hx of bladder "prolapse". Left Lower Abdomen Pain Score (Numeric/FACES): 10 - Related Data Allergies Allergy/AdvReac Type Severity Reaction Status Date / Time amlodipine Allergy Swelling Verified 04/16/19 11:07 amoxicillin Allergy Chest Verified 04/16/19 11:07 Tightness benzocaine Allergy Not Listed Verified 04/16/19 11:07 cortisone Allergy Red Rash Verified 04/16/19 11:07 venom-honey bee Allergy Redness Verified 04/16/19 11:07 [bee venom (honey bee)] and Swelling Corepivicaine Allergy Not Listed Uncoded 04/02/19 15:57 isocaine 2% w/Levonordefien Allergy Not Listed Uncoded 04/02/19 15:57 1:20K Home Meds: Home Meds ALPRAZolam [Xanax] 0.5 mg PO TID PRN #20 tablet 01/29/19 [Rx] Dicyclomine [Bentyl] 20 mg PO QID PRN 03/07/19 [History] Past Medical History HEENT History: Reports: Other (See Below) Other HEENT History: dental history-allergies to numbning medication Cardiovascular History: Reports: Heart Murmur Respiratory History: Reports: None Gastrointestinal History: Reports: GERD, Hiatal Hernia Genitourinary History: Reports: Other (See Below) Other Genitourinary History: Pt thinks her bladder is prolapsing. Intermittent bleeding per vagina suggesting cervical inflammation. Constant suprapubic pressure discomfort. 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 (See Below) Other 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 History: uterian prolapse, breast lumptectomy Musculoskeletal History: Reports: None Neurological History: Reports: None Psychiatric History: Reports: Anxiety, Depression, Panic Attack Other Psychiatric History: chronic anxiety Endocrine/Metabolic History: Reports: None Hematologic History: Reports: None Immunologic History: Reports: None Oncologic (Cancer) History: Reports: Other (See Below) Other Oncologic History: benign tumors from breasts removed Dermatologic History: Reports: None - Infectious Disease History Infectious Disease History: Reports: Chicken Pox, Measles, Rubella Other Infectious Disease History: sami measles. - Past Surgical History Head Surgeries/Procedures: Reports: None HEENT Surgical History: Reports: Oral Surgery Oncologic Surgical History: Reports: Biopsy of Breast Social & Family History - Family History Family Medical History: Noncontributory - Tobacco Use Smoking Status *Q: Current Every Day Smoker Years of Tobacco use: 35 Packs/Tins Daily: 0.5 - Caffeine Use Caffeine Use: Reports: None Other Caffeine Use: natural products - Recreational Drug Use Recreational Drug Use: No - Living Situation & Occupation Living situation: Reports: , Alone Occupation: Unemployed ED ROS GENERAL - Review of Systems Review Of Systems: See Below Constitutional: Denies: Fever, Chills HEENT: Denies: Throat Pain Respiratory: Denies: Shortness of Breath Cardiovascular: Denies: Chest Pain GI/Abdominal: Reports: Abdominal Pain, Decreased Appetite. Denies: Nausea, Vomiting Musculoskeletal: Denies: Neck Pain, Foot Pain Skin: Reports: No Symptoms Neurological: Reports: No Symptoms. Denies: Numbness, Tingling, Trouble Speaking, Weakness ED EXAM, GI/ABD - Physical Exam Exam: See Below General Appearance: Alert, Anxious Eyes: Bilateral: Normal Appearance Throat/Mouth: Other (oral mucosa is dry) Head: Atraumatic. No: Facial Swelling Neck: Supple, Full Range of Motion Respiratory/Chest: No Respiratory Distress, Lungs Clear, Normal Breath Sounds Cardiovascular: Regular Rate, Rhythm GI/Abdominal Exam: Soft, Non-Tender. No: Guarding Back Exam: No: CVA Tenderness (L), CVA Tenderness (R) Extremities: Normal Inspection, Normal Range of Motion Neurological: Alert, Oriented, No Motor/Sensory Deficits Psychiatric: Anxious Skin Exam: Warm, Dry, Normal Color Course - Vital Signs Last Recorded V/S: Last Vital Signs Temp 97.6 F 04/16/19 11:04 Pulse 93 04/16/19 11:04 Resp 16 04/16/19 11:04 BP 163/114 H 04/16/19 11:04 Pulse Ox 100 11/01/19 11:04 - Orders/Labs/Meds Labs: Laboratory Tests 04/16/19 04/16/19 04/16/19 Range/Units 11:35 11:40 11:40 WBC 9.24 (3.98-10.04) K/mm3 RBC 5.09 (3.98-5.22) M/mm3 Hgb 16.3 H (11.2-15.7) gm/dl Hct 47.5 H (34.1-44.9) % MCV 93.3 (79.4-94.8) fl MCH 32.0 (25.6-32.2) pg MCHC 34.3 (32.2-35.5) g/dl RDW Std Deviation 43.1 (36.4-46.3) fL Plt Count 358 (182-369) K/mm3 MPV 9.0 L (9.4-12.3) fl Neut % (Auto) 72.8 H (34.0-71.1) % Lymph % (Auto) 18.3 L (19.3-51.7) % [place] % (Auto) 7.5 (4.7-12.5) % Eos % (Auto) 0.3 L (0.7-5.8) Baso % (Auto) 0.9 (0.1-1.2) % Neut # (Auto) 6.73 H (1.56-6.13) K/mm3 Lymph # (Auto) 1.69 (1.18-3.74) K/mm3 [place] # (Auto) 0.69 H (0.24-0.36) K/mm3 Eos # (Auto) 0.03 L (0.04-0.36) K/mm3 Baso # (Auto) 0.08 (0.01-0.08) K/mm3 Sodium 137 (136-145) mEq/L Potassium 3.9 (3.5-5.1) mEq/L Chloride 102 (98-107) mEq/L Carbon Dioxide 28 (21-32) mEq/L Anion Gap 10.9 (5-15) BUN 12 (7-18) mg/dL Creatinine 0.9 (0.55-1.02) mg/dL Est Cr Clr Drug Dosing 46.86 mL/min Estimated GFR (MDRD) > 60 (>60) mL/min BUN/Creatinine Ratio 13.3 L (14-18) Glucose 100 (80-115) mg/dL Calcium 9.3 (8.5-10.1) mg/dL Total Bilirubin 0.6 (0.2-1.0) mg/dL AST 25 (15-37) U/L ALT 40 (14-59) U/L Alkaline Phosphatase 72 (46-116) U/L Total Protein 7.8 (6.4-8.2) g/dl Albumin 4.1 (3.4-5.0) g/dl Globulin 3.7 gm/dL Albumin/Globulin Ratio 1.1 (1-2) Urine Color Yellow (Yellow) Urine Appearance Clear (Clear) Urine pH 6.0 (5.0-8.0) Ur Specific [place] 1.010 (1.005-1.030) Urine Protein Negative (Negative) Urine Glucose (UA) Negative (Negative) Urine Ketones Negative (Negative) Urine Occult Blood Negative (Negative) Urine Nitrite Negative (Negative) Urine Bilirubin Negative (Negative) Urine Urobilinogen 0.2 (0.2-1.0) Ur Leukocyte Esterase Negative (Negative) - Re-Assessments/Exams Free Text/Narrative Re-Assessment/Exam: 04/16/19 13:20 UA, WBC, chemistries nl, anxious but no major abd distress while here in the ED. Discharge instr. as documented. Departure - Departure Time of Disposition: 13:12 Disposition: Home, Self-Care 01 Condition: Fair Clinical Impression: Anxiety Abdominal pain Qualifiers: Abdominal location: lower abdomen, unspecified Qualified Code(s): R10.30 - Lower abdominal pain, unspecified - Discharge Information Instructions: Abdominal Pain, Adult, [id number] Referrals: Jerson Rosales MD [Primary Care Provider] - Forms: ED Department Discharge Additional Instructions: clear liquids and bland diet today and tomorrow as tolerated. Be sure to eat regular meals and snacks. See Dr Mcdowell as planned.
== END 2019-04-16 13:22 | disposition home or self-care (01) ==
LOC: JD.ED 10:54
DX: R10.32 Left lower quadrant pain (principal); F41.9 Anxiety disorder, unspecified; F32.9 Major depressive disorder, single episode, unspecified; F17.210 Nicotine dependence, cigarettes, uncomplicated; Z88.8 Allergy status to other drugs, medicaments and biological substances; Z88.0 Allergy status to penicillin; Z91.030 Bee allergy status; Z88.4 Allergy status to anesthetic agent; Z79.899 Other long term (current) drug therapy
CPT/HCPCS: 36415; 80053; 81003; 85025; 99282; 99284

== ENCOUNTER 2019-05-12 14:49 | Emergency (ER) | payer MEDICARE, OTHER ==
[2019-05-12 15:06] VITALS: BP 158/88; PULSE 63
--- NOTE | 2019-05-12 15:56 | EDM.PDOC ---
ED HPI GENERAL MEDICAL PROBLEM - General Chief Complaint: Abdominal Pain Stated Complaint: ABDOMINAL PAIN Time Seen by Provider: 05/12/19 15:31 - History of Present Illness INITIAL COMMENTS - FREE TEXT/NARRATIVE: Patient is a 63-year-old female who presents with complaints of abdominal pain earlier in the day. She states that the pain did resolve on her way up here. She denies vomiting or diarrhea however she states she was a little bit nauseous when the abdominal pain was occurring. Patient has a history of bladder prolapse and severe anxiety. She was concerned that it could be her bladder that is causing the issue. She states that she had some "testing "done with Dr. Stovall 2 days ago and she is been anxious cut she hasn't heard the results back. She stated that she tried calling her numerous times today and was told that the doctors busy. Patient also has numerous questions regarding her anxiety medications. She is wondering if doxepin is a good medication for her to be taking and if she should be to really taking her Xanax. She is also questioning where she can go to get a counselor to help her with her anxiety. - Related Data Allergies Allergy/AdvReac Type Severity Reaction Status Date / Time amlodipine Allergy Swelling Verified 05/12/19 15:06 amoxicillin Allergy Chest Verified 05/12/19 15:06 Tightness benzocaine Allergy Not Listed Verified 05/12/19 15:06 cortisone Allergy Red Rash Verified 05/12/19 15:06 venom-honey bee Allergy Redness Verified 05/12/19 15:06 [bee venom (honey bee)] and Swelling Corepivicaine Allergy Not Listed Uncoded 05/12/19 15:06 isocaine 2% w/Levonordefien Allergy Not Listed Uncoded 05/12/19 15:06 1:20K Home Meds: Home Meds ALPRAZolam [Xanax] 0.5 mg PO TID PRN #20 tablet 01/29/19 [Rx] Dicyclomine [Bentyl] 20 mg PO QID PRN 03/07/19 [History] Past Medical History HEENT History: Reports: Other (See Below) Other HEENT History: dental history-allergies to numbning medication Cardiovascular History: Reports: Heart Murmur Respiratory History: Reports: None Gastrointestinal History: Reports: GERD, Hiatal Hernia Genitourinary History: Reports: Other (See Below) Other Genitourinary History: Bladder Prolapse 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 (See Below) 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 DEVELOPMENT ASSOCIATE History: uterian prolapse, breast lumptectomy Musculoskeletal History: Reports: None Neurological History: Reports: None Psychiatric History: Reports: Anxiety, Depression, Panic Attack Other Psychiatric History: chronic anxiety Endocrine/Metabolic History: Reports: None Hematologic History: Reports: None Immunologic History: Reports: None Oncologic (Cancer) History: Reports: Other (See Below) Other Oncologic History: benign tumors from breasts removed Dermatologic History: Reports: None - Infectious Disease History Infectious Disease History: Reports: Chicken Pox, Measles, Rubella Other Infectious Disease History: [place] measles. - Past Surgical History Head Surgeries/Procedures: Reports: None HEENT Surgical History: Reports: Oral Surgery Oncologic Surgical History: Reports: Biopsy of Breast Social & Family History - Family History Family Medical History: Noncontributory - Tobacco Use Smoking Status *Q: Current Every Day Smoker Years of Tobacco use: 45 Packs/Tins Daily: 0.2 - Caffeine Use Caffeine Use: Reports: None Other Caffeine Use: natural products - Recreational Drug Use Recreational Drug Use: No - Living Situation & Occupation Living situation: Reports: , Alone Occupation: Unemployed ED ROS GENERAL - Review of Systems Review Of Systems: See Below Constitutional: Reports: No Symptoms. Denies: Fever, Chills HEENT: Reports: No Symptoms Respiratory: Reports: No Symptoms Cardiovascular: Reports: No Symptoms Endocrine: Reports: No Symptoms GI/Abdominal: Reports: No Symptoms : Reports: No Symptoms Musculoskeletal: Reports: No Symptoms Skin: Reports: No Symptoms Neurological: Reports: No Symptoms Psychiatric: Reports: Anxiety. Denies: Confusion, Depression, Homicidal Ideation Hematologic/Lymphatic: Reports: No Symptoms Immunologic: Reports: No Symptoms ED EXAM, GI/ABD - Physical Exam Exam: See Below Exam Limited By: No Limitations General Appearance: Alert, WD/WN, No Apparent Distress Respiratory/Chest: No Respiratory Distress, Lungs Clear, Normal Breath Sounds, No Accessory Muscle Use, Chest Non-Tender Cardiovascular: Normal Peripheral Pulses, Regular Rate, Rhythm, No Edema, No Murmur GI/Abdominal Exam: Normal Bowel Sounds, Soft, Non-Tender, No Organomegaly, No Distention, No Mass Neurological: Alert, Oriented, Normal Cognition Psychiatric: Normal Affect, Normal Mood Skin Exam: Warm, Dry, Intact, Normal Color, No Rash Course - Vital Signs Last Recorded V/S: Last Vital Signs Temp 97.2 F 05/12/19 15:03 Pulse 63 05/12/19 15:03 Resp 16 05/12/19 15:03 BP 158/88 H 05/12/19 15:03 Pulse Ox 100 05/12/19 15:03 - Re-Assessments/Exams Free Text/Narrative Re-Assessment/Exam: Patient is a 63-year-old female who presents with complaints of having abdominal pain earlier in the day. The pain is no longer present and she denies any nausea vomiting or diarrhea at this time. She states she was a little nauseous when the pain was there earlier in the day. On exam there was no abdominal tenderness, rigidity, or masses. Patient is well-known to this emergency department and presents frequently with complaints related to her anxiety. In discussion with the patient she does seem anxious and has many questions regarding her history of bladder prolapse as well as her anxiety medications. I did have a long discussion with the patient and advised her that she should continue to follow-up with her growth hacker and take her anxiety medications as prescribed by Dr. Soto. Discussed different options she would have for support groups or counselors. We recommended that she consult with [employer] to set up a counselor and that she possibly look for support groups through her jehovah's witness. At the conclusion of the discussion patient was grateful for the information she received and does feel comfortable going home at this time. Departure - Departure Time of Disposition: 15:56 Disposition: Home, Self-Care 01 Condition: Good Clinical Impression: Abdominal pain Qualifiers: Abdominal location: lower abdomen, unspecified Qualified Code(s): R10.30 - Lower abdominal pain, unspecified - Discharge Information *PRESCRIPTION DRUG MONITORING PROGRAM REVIEWED*: No *COPY OF PRESCRIPTION DRUG MONITORING REPORT IN PATIENT LINDA: No Instructions: Abdominal Pain, Adult Referrals: Jerson Rosales MD [Primary Care Provider] - Forms: ED Department Discharge Additional Instructions: You were seen in the emergency Department today with complaints of abdominal pain earlier in the day. By the time you presented to the emergency department the pain had resolved. We recommend that you stay adequately hydrated and continue to take your anxiety medications that were prescribed to by Dr. Soto. As we discussed, it may be beneficial for you to establish with a counselor or support group. You may contact [facility] to set up counseling. They're phone number is [phone]. You may also speak with your jehovah's witness regarding possible some support groups that they have available. If you have any worsening symptoms, please follow-up with your primary care provider or return to the emergency department as needed.
== END 2019-05-12 16:12 | disposition home or self-care (01) ==
LOC: JD.ED 14:49
DX: R10.30 Lower abdominal pain, unspecified (principal); F41.9 Anxiety disorder, unspecified; F32.9 Major depressive disorder, single episode, unspecified; F17.210 Nicotine dependence, cigarettes, uncomplicated; Z88.5 Allergy status to narcotic agent; Z88.0 Allergy status to penicillin; Z88.8 Allergy status to other drugs, medicaments and biological substances
CPT/HCPCS: 99283

== ENCOUNTER 2019-05-19 10:48 | Emergency (ER) | payer MEDICARE, OTHER ==
[2019-05-19 11:13] VITALS: BP 159/86; PULSE 63
--- NOTE | 2019-05-19 11:27 | EDM.PDOC ---
ED HPI GENERAL MEDICAL PROBLEM - General Chief Complaint: Abdominal Pain Stated Complaint: LOW ABD PAIN Time Seen by Provider: 05/19/19 11:26 Source of Information: Reports: Patient History Limitations: Reports: No Limitations - History of Present Illness INITIAL COMMENTS - FREE TEXT/NARRATIVE: 63-year-old female once again presents the ED which she does almost on a weekly basis complaining of the same thing. Diffuse lower abdominal discomfort which keeps him blaming her prior prolapse which is chronic for her as the source of her issue. She has tried a pessary which is fail due to pain and noncompliance. She is recently having further investigations done by Dr. Stovall as to whether or not there may be a surgical remedy for her prolapse. She denies any dysuria urgency or frequency but she has a very foul odor smell to her. She states her bowels to work the best as well. He states it goes a little bit every day. No fever or chills no nausea vomiting. Appetite remains poor. Onset: Unknown/Unsure (Chronic problems) Duration: Chronic Location: Reports: Abdomen (Lower abdominal discomfort) Quality: Reports: Pressure, Other (Rectal pressure discomfort) Severity: Moderate Improves with: Reports: None Worsens with: Reports: None Context: Denies: Activity, Exercise, Lifting, Sick Contact, Trauma, Other Associated Symptoms: Reports: No Other Symptoms, Loss of Appetite, Malaise, Other. Denies: Confusion, Chest Pain, Cough, cough w sputum, Diaphoresis, Fever /Chills, Headaches, Nausea/Vomiting, Rash, Seizure, Shortness of Breath, Syncope Treatments FLOORWALKER: Reports: Other (see below) Lower Abdominal Pain Score (Numeric/FACES): 7 - Related Data Allergies Allergy/AdvReac Type Severity Reaction Status Date / Time amlodipine Allergy Swelling Verified 05/19/19 11:14 amoxicillin Allergy Chest Verified 05/19/19 11:14 Tightness benzocaine Allergy Not Listed Verified 05/19/19 11:14 cortisone Allergy Red Rash Verified 05/19/19 11:14 venom-honey bee Allergy Redness Verified 05/19/19 11:14 [bee venom (honey bee)] and Swelling Corepivicaine Allergy Not Listed Uncoded 05/19/19 11:14 isocaine 2% w/Levonordefien Allergy Not Listed Uncoded 05/19/19 11:14 1:20K Home Meds: Home Meds ALPRAZolam [Xanax] 0.5 mg PO TID PRN #20 tablet 01/29/19 [Rx] Dicyclomine [Bentyl] 20 mg PO QID PRN 03/07/19 [History] Polyethylene Glycol 3350 [Miralax] 17 gm PO DAILY #1 container 05/19/19 [Rx] Past Medical History HEENT History: Reports: Other (See Below) Other HEENT History: dental history-allergies to numbning medication Cardiovascular History: Reports: Heart Murmur Respiratory History: Reports: None Gastrointestinal History: Reports: GERD, Hiatal Hernia Genitourinary History: Reports: Other (See Below) Other Genitourinary History: Bladder Prolapse PLAN COORDINATOR History: Reports: Other (See Below) Other PLAN COORDINATOR History: uterian prolapse, breast lumptectomy Musculoskeletal History: Reports: None Neurological History: Reports: None Psychiatric History: Reports: Anxiety, Depression, Panic Attack Other Psychiatric History: chronic anxiety Endocrine/Metabolic History: Reports: None Hematologic History: Reports: None Immunologic History: Reports: None Oncologic (Cancer) History: Reports: Other (See Below) Other Oncologic History: benign tumors from breasts removed Dermatologic History: Reports: None - Infectious Disease History Infectious Disease History: Reports: Chicken Pox, Measles, Rubella Other Infectious Disease History: nigerian measles. - Past Surgical History Head Surgeries/Procedures: Reports: None HEENT Surgical History: Reports: Oral Surgery Oncologic Surgical History: Reports: Biopsy of Breast Social & Family History - Family History Family Medical History: Noncontributory - Caffeine Use Caffeine Use: Reports: None Other Caffeine Use: natural products - Living Situation & Occupation Living situation: Reports: , Alone Occupation: Unemployed [facility] - Review of Systems Review Of Systems: See Below Constitutional: Reports: Malaise, Weakness, Fatigue, Decreased Appetite, Weight Loss. Denies: Fever, Chills HEENT: Denies: Vertigo Respiratory: Reports: No Symptoms Cardiovascular: Reports: No Symptoms Endocrine: Reports: No Symptoms GI/Abdominal: Reports: Abdominal Pain (Chronic lower abdominal discomfort.), Constipation, Decreased Appetite. Denies: Stool Incontinence : Reports: Frequency, Incontinence (Due to prolapsed urinary bladder. Has a sense of incomplete emptying.), Urgency Musculoskeletal: Reports: Back Pain, Joint Pain Skin: Reports: No Symptoms (Knee pain) Neurological: Reports: No Symptoms Psychiatric: Reports: No Symptoms Hematologic/Lymphatic: Reports: No Symptoms Immunologic: Reports: No Symptoms ED EXAM, GI/ABD - Physical Exam Exam: See Below Exam Limited By: No Limitations General Appearance: Alert, WD/WN, Anxious, Mild Distress, Other Eyes: Bilateral: Normal Appearance (Vital signs show temperature 36.8 pulse 63 and sinus respiratory of 18 BP elevated 159/86. O2 sats 100% on room air.) Throat/Mouth: Normal Inspection, Normal Lips, Normal Oropharynx Head: Atraumatic, Normocephalic Neck: Limited Range of Motion, Tender Lateral. No: Lymphadenopathy (L), Lymphadenopathy (R) Respiratory/Chest: No Respiratory Distress, Lungs Clear, Normal Breath Sounds, No Accessory Muscle Use Cardiovascular: Normal Peripheral Pulses, Regular Rate, Rhythm, No Edema, No Gallop, No Murmur, No Rub GI/Abdominal Exam: Normal Bowel Sounds, Soft, Non-Tender, No Organomegaly, No Abnormal Bruit, Abnormal Bowel Sounds (Bowel sounds are hyperactive in all 4 quadrants.), Other (I can palpate left and right hemicolon's. She is very thin.) (Female) Exam: Other (Smell strongly of infected urine. Urinary incontinence. ) Back Exam: Other (Mild kyphosis thoracic spine) Extremities: Joint Swelling Neurological: Alert (Both knees show evidence most arthritic changes.), Oriented , CN II-XII Intact, Normal Cognition Psychiatric: Normal Affect, Normal Mood Skin Exam: Warm, Dry, Intact, Normal Color, No Rash Course - Vital Signs Last Recorded V/S: Last Vital Signs Temp 36.8 C 05/19/19 11:09 Pulse 63 05/19/19 11:09 Resp 18 05/19/19 11:09 BP 159/86 H 05/19/19 11:09 Pulse Ox 100 05/19/19 11:09 - Orders/Labs/Meds Orders: Active Orders 24 hr Category Date Time Status Abdomen 1V Flat [CR] Stat Exams 05/19/19 11:27 Taken Labs: Laboratory Tests 05/19/19 Range/Units 11:45 Urine Color Yellow (Yellow) Urine Appearance Clear (Clear) Urine pH 6.0 (5.0-8.0) Ur Specific Thom[place] <=1.005 (1.005-1.030) Urine Protein Negative (Negative) Urine Glucose (UA) Negative (Negative) Urine Ketones Negative (Negative) Urine Occult Blood Trace-intact H (Negative) Urine Nitrite Negative (Negative) Urine Bilirubin Negative (Negative) Urine Urobilinogen 0.2 (0.2-1.0) Ur Leukocyte Esterase Negative (Negative) Urine RBC 0-5 (0-5) /hpf Urine WBC 0-5 (0-5) /hpf Ur Epithelial Cells 0-5 (0-5) /hpf Urine Bacteria Not seen (FEW) /hpf Urine Mucus Not seen (FEW) /hpf Meds: Medications Discontinued Medications Generic Name Dose Route Start Last Admin Trade Name Vasuq PRN Reason Stop Dose Admin Magnesium Citrate 240 ml 05/19/19 13:58 Citrate Of Magnesia PO 05/19/19 13:59 ONETIME ONE - Radiology Interpretation Free Text/Narrative:: 63-year-old female once again presents to the ED with diffuse lower abdominal discomfort which she blames on her prolapsed bladder. A chronic issue for her with incomplete emptying and urinary incontinence. Examination reveals very active bowel sounds in all 4 quadrants. She is very thin I can palpate both the left and right hemicolon compatible with constipation. One view of the abdomen to be obtained. Urine to be obtained by catheter specimen so as to identify an infection for sure. Patient is rather apprehensive about having this done. Nurses will help clean the prolapsed area very well and she does have to pass her urine at this time. - Re-Assessments/Exams Free Text/Narrative Re-Assessment/Exam: 05/19/19 13:30: Urinalysis returned negative for any signs of infection. 05/19/19 14:07 discussed the findings with the patient. Chronic constipation is likely the cause of her chronic abdominal and recurrent of abdominal pain. The x -ray of the abdomen is a shows that form a half feet of the colon is filled with stool. There is no doubt the weight of the stool in the colon would be aggravating her bladder prolapse as well. Suggested that she take magnesium citrate or Citroma today 8 ounces mixed with 6 ounces of juice of choice to provide bowel cleanse. She is then to steak MiraLAX powder 17 g every single day to prevent constipation from occurring. Follow-up with a physician and I will advise Dr. Madison Peres in the family medicine unit. She will try and make an appointment with her. Departure - Departure Time of Disposition: 13:59 Disposition: Home, Self-Care 01 Condition: Fair Clinical Impression: Recurrent abdominal pain, Constipation by delayed colonic transit - Discharge Information *PRESCRIPTION DRUG MONITORING PROGRAM REVIEWED*: Not Applicable *COPY OF PRESCRIPTION DRUG MONITORING REPORT IN PATIENT LINDA: Not Applicable Prescriptions: Polyethylene Glycol 3350 [Miralax] 17 gm PO DAILY #1 container Instructions: Constipation, Adult, [id number], Abdominal Pain, Adult, Easy-to -Read Referrals: Jerson Rosales MD [Primary Care Provider] - Forms: ED Department Discharge Additional Instructions: Evaluation the emergency room today in regards to recurrent lower abdominal pain and discomfort. You have a prolapsed urinary bladder but the urinalysis today shows no signs of infection. An x-ray of the abdomen shows extensive constipation with most of the foreign half liters large bowel filled with stool. The weight of this would be pushing down on your urinary bladder making the prolapse worse. It is very important that we get her stools soft and working on a daily basis. Suggest magnesium citrate or Citroma 8 ounces by mouth daily with 6 ounces of juice of choice by mouth once. This will take about an hour to to work in your bowels were move 3 or 4 times basically causing some bowel cleansing. Just starting MiraLAX powder 17 g or 1 scoop today and taken once daily from now on to keep the stools regular. Should also help with the bladder prolapse. Suggest follow-up with Dr. Madison Peres in the family medicine clinic. Please call [phone] to arrange an appointment. - My Orders Last 24 Hours: My Active Orders 05/19/19 11:27 Abdomen 1V Flat [CR] Stat - Assessment/Plan Last 24 Hours: My Active Orders 05/19/19 11:27 Abdomen 1V Flat [CR] Stat
[2019-05-19] MEDS ORDERED: Magnesium Citrate Solution 296 ML Bottle PO ONE (13:58)
--- NOTE | 2019-05-23 08:25 | CR ---
Abdomen: Supine view of the abdomen was obtained. Comparison: Prior abdominal x-ray of 01/05/19. Slight increased stool throughout the colon is noted. Bowel gas pattern is otherwise unremarkable. No abnormal calcifications or soft tissue abnormalities seen. Bony structures are unremarkable. Impression: 1. Increased stool throughout the colon. Diagnostic code #2 This report was dictated in [place] Standard Time
== END 2019-05-19 14:24 | disposition home or self-care (01) ==
LOC: JD.ED 10:48
DX: R10.30 Lower abdominal pain, unspecified (principal); K59.01 Slow transit constipation; F32.9 Major depressive disorder, single episode, unspecified; Z88.8 Allergy status to other drugs, medicaments and biological substances; Z88.0 Allergy status to penicillin; Z88.4 Allergy status to anesthetic agent; Z91.030 Bee allergy status
CPT/HCPCS: 74018; 81001; 99284; A9270; 99282

== ENCOUNTER 2019-05-22 11:34 | Emergency (ER) | payer MEDICARE, OTHER ==
[2019-05-22 11:45] VITALS: BP 164/87; PULSE 70
--- NOTE | 2019-05-22 12:05 | EDM.PDOC ---
<Ambreen Quiñones - Last Filed: 05/22/19 12:33> ED HPI GENERAL MEDICAL PROBLEM - General Chief Complaint: Abdominal Pain Stated Complaint: ABDOMINAL PAIN Time Seen by Provider: 05/22/19 11:38 Source of Information: Reports: Patient History Limitations: Reports: No Limitations - History of Present Illness INITIAL COMMENTS - FREE TEXT/NARRATIVE: 63 year old white female who presents with periumbilical abdominal pain who was treated in the ED for the same thing three days ago. Pt states that she was sent home from the ED with instructions to drink magnesium citrate and start miralax daily. The patient reports drinking the magnesium citrate but does not recall if she had a bowel movement or not and did not start taking the miralax. The patient cannot recall the last time that she had a bowel movement. Pt describes the abdominal pain as a pressure. Abdomen Pain Score (Numeric/FACES): 5 - Related Data Allergies Allergy/AdvReac Type Severity Reaction Status Date / Time amlodipine Allergy Swelling Verified 05/19/19 11:14 amoxicillin Allergy Chest Verified 05/19/19 11:14 Tightness benzocaine Allergy Not Listed Verified 05/19/19 11:14 cortisone Allergy Red Rash Verified 05/19/19 11:14 venom-honey bee Allergy Redness Verified 05/19/19 11:14 [bee venom (honey bee)] and Swelling Corepivicaine Allergy Not Listed Uncoded 05/19/19 11:14 isocaine 2% w/Levonordefien Allergy Not Listed Uncoded 05/19/19 11:14 1:20K Home Meds: Home Meds ALPRAZolam [Xanax] 0.5 mg PO TID PRN #20 tablet 01/29/19 [Rx] Dicyclomine [Bentyl] 20 mg PO QID PRN 03/07/19 [History] Polyethylene Glycol 3350 [Miralax] 17 gm PO DAILY #1 container 05/19/19 [Rx] Past Medical History HEENT History: Reports: Other (See Below) Other HEENT History: dental history-allergies to numbning medication Cardiovascular History: Reports: Heart Murmur Respiratory History: Reports: None Gastrointestinal History: Reports: GERD, Hiatal Hernia Genitourinary History: Reports: Other (See Below) Other Genitourinary History: Bladder Prolapse GIN CLERK History: Reports: Other (See Below) Other GIN CLERK History: uterian prolapse, breast lumptectomy Musculoskeletal History: Reports: None Neurological History: Reports: None Psychiatric History: Reports: Anxiety, Depression, Panic Attack Other Psychiatric History: chronic anxiety Endocrine/Metabolic History: Reports: None Hematologic History: Reports: None Immunologic History: Reports: None Oncologic (Cancer) History: Reports: Other (See Below) Other Oncologic History: benign tumors from breasts removed Dermatologic History: Reports: None - Infectious Disease History Infectious Disease History: Reports: Chicken Pox, Measles, Rubella Other Infectious Disease History: burkinan measles. - Past Surgical History Head Surgeries/Procedures: Reports: None HEENT Surgical History: Reports: Oral Surgery Oncologic Surgical History: Reports: Biopsy of Breast Social & Family History - Family History Family Medical History: Noncontributory - Tobacco Use Smoking Status *Q: Current Every Day Smoker Years of Tobacco use: 15 Packs/Tins Daily: 0.4 - Caffeine Use Caffeine Use: Reports: Soda Other Caffeine Use: natural products - Recreational Drug Use Recreational Drug Use: No - Living Situation & Occupation Living situation: Reports: , Alone Occupation: Unemployed ED ROS GENERAL - Review of Systems Review Of Systems: See Below (history of prolapsed bladder) Constitutional: Reports: No Symptoms. Denies: Fever, Chills, Diaphoresis HEENT: Reports: No Symptoms Respiratory: Reports: No Symptoms Cardiovascular: Reports: No Symptoms Endocrine: Reports: No Symptoms GI/Abdominal: Reports: Abdominal Pain, Constipation. Denies: Anorexia, Black Stool, Bloody Stool, Diarrhea, Melena, Nausea, Stool Incontinence, Vomiting : Reports: No Symptoms, Other. Denies: Dysuria, Frequency, Incontinence, Urgency Musculoskeletal: Reports: No Symptoms Skin: Reports: No Symptoms Neurological: Reports: No Symptoms, Other (pt unable to recall last bowel movement, unable to recall receiving discharge instructions to start miralax daily or to make a follow up appointment with Dr. Peres) Psychiatric: Reports: Confusion (pt unable to recall last bowel movement, unable to recall receiving discharge instructions to start miralax daily or to make a follow up appointment with Dr. Peres) Hematologic/Lymphatic: Reports: No Symptoms Immunologic: Reports: No Symptoms ED EXAM, GI/ABD - Physical Exam Exam: See Below Exam Limited By: No Limitations General Appearance: Alert, WD/WN, No Apparent Distress Ears: Normal External Exam, Hearing Grossly Normal Nose: Normal Inspection Throat/Mouth: Normal Inspection, Normal Lips, Normal Voice, No Airway Compromise Head: Atraumatic, Normocephalic Neck: Normal Inspection Respiratory/Chest: No Respiratory Distress, Lungs Clear, Normal Breath Sounds Cardiovascular: Normal Peripheral Pulses, Regular Rate, Rhythm, No Edema, No Murmur GI/Abdominal Exam: Soft, Tender (tender in bilateral lower quadrants on palpation), Abnormal Bowel Sounds (bowel sounds hyperactive) (Female) Exam: Deferred Rectal (Female) Exam: Deferred Back Exam: Normal Inspection Extremities: Normal Inspection, Normal Range of Motion, No Pedal Edema Neurological: Alert, Oriented, Normal Cognition, Memory Loss Recent Events (pt unable to recall last bowel movement, unable to recall receiving discharge instructions to start miralax daily or to make a follow up appointment with Dr. Peres) Psychiatric: Normal Affect, Normal Mood Skin Exam: Warm, Dry, Intact, Normal Color Lymphatic: No Adenopathy Comments: Upon entering the room to examine the patient, there is a very strong smell of body odor. Pt appears unkempt at this time as well. Course - Vital Signs Last Recorded V/S: Last Vital Signs Temp 97.8 F 05/22/19 11:43 Pulse 70 05/22/19 11:43 Resp 20 05/22/19 11:43 BP 164/87 H 05/22/19 11:43 Pulse Ox 100 05/22/19 11:43 - Orders/Labs/Meds Orders: Active Orders 24 hr Category Date Time Status KUB [Abdomen 1V Flat] [CR] Stat Exams 05/22/19 11:54 Taken Meds: Medications Discontinued Medications Generic Name Dose Route Start Last Admin Trade Name Ophelia PRN Reason Stop Dose Admin Magnesium Citrate 296 ml 05/22/19 12:22 05/22/19 12:38 Citrate Of Magnesia PO 05/22/19 12:23 296 ml ONETIME ONE Administration - Re-Assessments/Exams Free Text/Narrative Re-Assessment/Exam: 05/22/19 12:34 KUB reveals a moderate amount of stool is still in the colon. I will order for the patient to have a full bottle of magnesium citrate here in the ED with 6 oz of gatorade. Departure - Departure Disposition: Home, Self-Care 01 Clinical Impression: Constipation by delayed colonic transit Abdominal pain Qualifiers: Abdominal location: lower abdomen, unspecified Qualified Code(s): R10.30 - Lower abdominal pain, unspecified - Discharge Information Referrals: Jerson Rosales MD [Primary Care Provider] - Forms: ED Department Discharge Additional Instructions: drink plenty of fluids. the medication you were given in the ER today should cause you to have a large bowel movement with the next 24-48 hours. follow-up with your PCP. Recommend miralax, available OTC, daily for normal bowel maintenance. Please return to the ER should your symptoms change or worsen. <Allie Chance Jonn - Last Filed: 05/22/19 13:08> ED HPI GENERAL MEDICAL PROBLEM - History of Present Illness INITIAL COMMENTS - FREE TEXT/NARRATIVE: I have seen the patient and agree with the HPI as documented by LUDA Lauren. ED EXAM, GI/ABD - Physical Exam Exam Limited By: Other (Hillary is unkept, stong body odor, hair appears unwashed) GI/Abdominal Exam: Soft, No Distention. No: Guarding, Rigid Course - Radiology Interpretation Free Text/Narrative:: KUB shows increased stool throughout. Slightly worse compared to xray 3 days ago. Reviewed by myself and Dr. Benitez. - Re-Assessments/Exams Free Text/Narrative Re-Assessment/Exam: 05/22/19 13:05 I have seen the patient and agree with the HPI, ROS and PE as documented by LUDA Lauren. I reviewed the xray with the patient. She is very anxious to go at this time. She may go once she finished the lateral of magnesium citrate. I'm slightly concerned as her appearance is unkempt today. She has always appeared clean and shallow have seen her previously. I will have our social workers contact her this week. Discharge instructions as documented. Departure - Departure Time of Disposition: 13:07 Condition: Fair - Discharge Information *PRESCRIPTION DRUG MONITORING PROGRAM REVIEWED*: No *COPY OF PRESCRIPTION DRUG MONITORING REPORT IN PATIENT LINDA: No
[2019-05-22] MEDS ORDERED: Magnesium Citrate Solution 296 ML Bottle PO ONE (12:22)
--- NOTE | 2019-05-23 08:25 | CR ---
Abdomen: Supine view of the abdomen was obtained. Comparison: Prior abdominal x-ray of 05/19/19. Increased stool within the colon is seen which is slightly diminished within the rectosigmoid region from prior study. Bowel gas pattern is otherwise unremarkable. No abnormal calcifications or soft tissue abnormality seen. Bony structures are unremarkable. Impression: 1. Increased stool within the colon but decreased stool within the rectosigmoid region from prior study. 2. No additional abnormality is seen. Diagnostic code #2 This report was dictated in [place] Standard Time
== END 2019-05-22 13:08 | disposition home or self-care (01) ==
LOC: JD.ED 11:34
DX: K59.01 Slow transit constipation (principal); F41.0 Panic disorder [episodic paroxysmal anxiety]; F32.9 Major depressive disorder, single episode, unspecified; F17.210 Nicotine dependence, cigarettes, uncomplicated; Z88.1 Allergy status to other antibiotic agents; Z88.8 Allergy status to other drugs, medicaments and biological substances; Z91.030 Bee allergy status; Z79.899 Other long term (current) drug therapy
CPT/HCPCS: 74018; 99284; A9270; 99281

== ENCOUNTER 2019-05-24 12:53 | Emergency (ER) | payer MEDICARE, OTHER ==
[2019-05-24 13:10] VITALS: BP 143/87; PULSE 73
--- NOTE | 2019-05-24 13:49 | EDM.PDOC ---
ED HPI GENERAL MEDICAL PROBLEM - General Chief Complaint: Gastrointestinal Problem Stated Complaint: ABDOMINAL PAIN Time Seen by Provider: 05/24/19 13:05 Source of Information: Reports: Patient History Limitations: Reports: No Limitations - History of Present Illness INITIAL COMMENTS - FREE TEXT/NARRATIVE: Patient is a 63-year-old female who presents with complaints of generalized abdominal cramping and pressure. This will be the third time she has been seen for similar symptoms in the last week. She was previously diagnosed with constipation, provided mag citrate in the emergency department, and advised take MiraLAX. She states that the first time she took the MiraLAX was this morning and that she only took a half dose. She states that since she was here Friday she has had some watery diarrhea, but no substantial formed stools. She denies any fever, chills, nausea, or vomiting. Lower Abdomen Pain Score (Numeric/FACES): 6 - Related Data Allergies Allergy/AdvReac Type Severity Reaction Status Date / Time amlodipine Allergy Swelling Verified 05/19/19 11:14 amoxicillin Allergy Chest Verified 05/19/19 11:14 Tightness benzocaine Allergy Not Listed Verified 05/19/19 11:14 cortisone Allergy Red Rash Verified 05/19/19 11:14 venom-honey bee Allergy Redness Verified 05/19/19 11:14 [bee venom (honey bee)] and Swelling Corepivicaine Allergy Not Listed Uncoded 05/19/19 11:14 isocaine 2% w/Levonordefien Allergy Not Listed Uncoded 05/19/19 11:14 1:20K Home Meds: Home Meds ALPRAZolam [Xanax] 0.5 mg PO TID PRN #20 tablet 01/29/19 [Rx] Dicyclomine [Bentyl] 20 mg PO QID PRN 03/07/19 [History] Polyethylene Glycol 3350 [Miralax] 17 gm PO DAILY #1 container 05/19/19 [Rx] Past Medical History HEENT History: Reports: Other (See Below) Other HEENT History: dental history-allergies to numbning medication Cardiovascular History: Reports: Heart Murmur Respiratory History: Reports: None Gastrointestinal History: Reports: GERD, Hiatal Hernia Genitourinary History: Reports: Other (See Below) Other Genitourinary History: Bladder Prolapse 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 (See Below) Other COBOL PROGRAMMER History: uterian prolapse, breast lumptectomy Musculoskeletal History: Reports: None Neurological History: Reports: None Psychiatric History: Reports: Anxiety, Depression, Panic Attack Other Psychiatric History: chronic anxiety Endocrine/Metabolic History: Reports: None Hematologic History: Reports: None Immunologic History: Reports: None Oncologic (Cancer) History: Reports: Other (See Below) Other Oncologic History: benign tumors from breasts removed Dermatologic History: Reports: None - Infectious Disease History Infectious Disease History: Reports: Chicken Pox, Measles, Rubella Other Infectious Disease History: hebrew measles. - Past Surgical History Head Surgeries/Procedures: Reports: None HEENT Surgical History: Reports: Oral Surgery Oncologic Surgical History: Reports: Biopsy of Breast Social & Family History - Family History Family Medical History: Noncontributory - Tobacco Use Smoking Status *Q: Light Tobacco Smoker Years of Tobacco use: 40 Packs/Tins Daily: 0.2 - Caffeine Use Caffeine Use: Reports: None Other Caffeine Use: natural products - Living Situation & Occupation Living situation: Reports: , Alone Occupation: Unemployed ED ROS GENERAL - Review of Systems Review Of Systems: See Below Constitutional: Reports: No Symptoms. Denies: Fever, Chills, Weakness, Decreased Appetite HEENT: Reports: No Symptoms Respiratory: Reports: No Symptoms Cardiovascular: Reports: No Symptoms Endocrine: Reports: No Symptoms GI/Abdominal: Reports: Abdominal Pain, Diarrhea. Denies: Black Stool, Bloody Stool, Nausea, Vomiting : Reports: No Symptoms Musculoskeletal: Reports: No Symptoms Skin: Reports: No Symptoms Neurological: Reports: No Symptoms Psychiatric: Reports: No Symptoms Hematologic/Lymphatic: Reports: No Symptoms Immunologic: Reports: No Symptoms ED EXAM, GI/ABD - Physical Exam Exam: See Below Exam Limited By: No Limitations General Appearance: Alert, WD/WN, No Apparent Distress, Anxious Respiratory/Chest: No Respiratory Distress, Lungs Clear, Normal Breath Sounds, No Accessory Muscle Use, Chest Non-Tender Cardiovascular: Normal Peripheral Pulses, Regular Rate, Rhythm, No Edema, No Murmur Neurological: Alert, Oriented, Normal Cognition Psychiatric: Normal Affect, Normal Mood Skin Exam: Warm, Dry, Intact, Normal Color, No Rash Course - Vital Signs Last Recorded V/S: Last Vital Signs Temp 98.0 F 05/24/19 13:05 Pulse 73 05/24/19 13:05 Resp 20 05/24/19 13:05 BP 143/87 H 05/24/19 13:05 Pulse Ox 97 05/24/19 13:05 - Orders/Labs/Meds Orders: Active Orders 24 hr Category Date Time Status KUB [Abdomen 1V Flat] [CR] Stat Exams 05/24/19 13:11 Taken - Re-Assessments/Exams Free Text/Narrative Re-Assessment/Exam: patient is a 63-year-old female who presents with complaints of abdominal pain/ cramping. This does seem pain that she has been seen for 3 times in the last week. KUB was completed and shows no improvement in her constipation since Friday. on exam her bowel sounds are active in all 4 quadrants, her abdomen is not rigid and she is not guarding. She is in no obvious distress. She states that the pain is mild and crampy to the periumbilical and left upper quadrant. I feel the best option for her is going to be for soapsuds enema and lactulose. I did discuss this with the patient and she is apprehensive to have this done. She is concerned that it may be overly painful. I did advise her that we would feel to give her Bentyl in the ER prior to the enema but that there is generally some cramping accompanied with it. She she is questioning if I think the MiraLAX would work. She was advised that has not worked thus far so it's very possible that it will not be sufficient to clear her stools. She states that she is going to run out and talk to her water truck driver to see if he is willing to wait or come back and then she will let us know what she would like to do. 05/24/19 14:03 Patient return to her room and continues to be reluctant to receive the enema. After a long discussion she decided that she does not want the enema today. She did agree to take another bottle of magnesium citrate before leaving the ER and states that she'll take a full dose of MiraLAX tonight. I did advise that the goal is to have a substantial formed stool, not just watery stool. She verbalized understanding and stated that she will return if she doesn't have a formed stool by tomorrow. Departure - Departure Time of Disposition: 14:08 Disposition: Home, Self-Care 01 Condition: Fair Clinical Impression: Constipation - Discharge Information *PRESCRIPTION DRUG MONITORING PROGRAM REVIEWED*: No *COPY OF PRESCRIPTION DRUG MONITORING REPORT IN PATIENT LINDA: No Instructions: Constipation, Adult Referrals: Jerson Rosales MD [Primary Care Provider] - Forms: ED Department Discharge Additional Instructions: You were seen in the emergency department today with continued abdominal pain and cramping. An abdomen x-ray was completed which still shows that you are constipated. A soapsuds enema was offered, however you declined. You did receive a bottle magnesium citrate while in the emergency department. This will likely cause you to continue to have watery diarrhea. You will know the medication is working if you have a large, formed stool. We recommend that you take a full capful of MiraLAX tonight and twice a day after today until you achieve regular, formed stools. After that, you may decrease to once daily. If you do not have a significant bowel movement within the next 24 hours or if you experience any new or worsening symptoms, please return to the emergency department. - My Orders Last 24 Hours: My Active Orders 05/24/19 13:11 KUB [Abdomen 1V Flat] [CR] Stat - Assessment/Plan Last 24 Hours: My Active Orders 05/24/19 13:11 KUB [Abdomen 1V Flat] [CR] Stat
[2019-05-24] MEDS ORDERED: Magnesium Citrate Solution 296 ML Bottle PO ONE (14:07)
--- NOTE | 2019-05-24 14:08 | CR ---
Abdomen: Supine view of the abdomen was obtained. Comparison: Prior abdominal x-ray of 05/19/19. Slight increased stool is noted throughout the colon. Bowel gas pattern is otherwise unremarkable. Bony structures appear within normal limits for the patient's age. No soft tissue abnormality is seen. Impression: 1. Slight increased stool within the colon. Diagnostic code #2 This report was dictated in Mountain Standard Time
== END 2019-05-24 14:35 | disposition home or self-care (01) ==
LOC: JD.ED 12:53
DX: K59.00 Constipation, unspecified (principal); F41.9 Anxiety disorder, unspecified; F17.210 Nicotine dependence, cigarettes, uncomplicated; Z88.8 Allergy status to other drugs, medicaments and biological substances; Z88.4 Allergy status to anesthetic agent; Z91.030 Bee allergy status; Z88.0 Allergy status to penicillin; Z79.899 Other long term (current) drug therapy
CPT/HCPCS: 74018; 99284; A9270; 99281

== ENCOUNTER 2019-06-02 10:47 | Emergency (ER) | payer MEDICARE, OTHER ==
[2019-06-02 11:05] VITALS: BP 162/89; PULSE 65
--- NOTE | 2019-06-02 11:17 | EDM.PDOC ---
ED HPI GENERAL MEDICAL PROBLEM - General Chief Complaint: Abdominal Pain Stated Complaint: LOW ABD PAIN Time Seen by Provider: 06/02/19 11:07 Source of Information: Reports: Patient History Limitations: Reports: No Limitations - History of Present Illness INITIAL COMMENTS - FREE TEXT/NARRATIVE: Since unfortunate 63-year-old female who presents emergency Department today with complaint of lower abdominal pain. Patient reports that she has been having abdominal pain since she was a child. This pain comes on when she gets stressed out and reports she has had increased stress due to the holidays. Patient josselyn is a crampy type abdominal pain in the lower part of her abdomen which is mild in nature she reports she has had normal bowel movements and she was seen here in the emergency department last. She reports that her PCP has referred her to GI for endoscopy she has not set this up yet nor has she seen a rotogravure press operator. She denies any nausea no vomiting no constipation no hematemesis nor hematochezia and no melena. Patient reports she was eating and drinking well. Bilateral Lower Abdomen Pain Score (Numeric/FACES): 7 - Related Data Allergies Allergy/AdvReac Type Severity Reaction Status Date / Time amlodipine Allergy Swelling Verified 06/02/19 11:05 amoxicillin Allergy Chest Verified 06/02/19 11:05 Tightness benzocaine Allergy Not Listed Verified 06/02/19 11:05 cortisone Allergy Red Rash Verified 06/02/19 11:05 venom-honey bee Allergy Redness Verified 06/02/19 11:05 [bee venom (honey bee)] and Swelling Corepivicaine Allergy Not Listed Uncoded 06/02/19 11:05 isocaine 2% w/Levonordefien Allergy Not Listed Uncoded 06/02/19 11:05 1:20K Home Meds: Home Meds ALPRAZolam [Xanax] 0.5 mg PO TID PRN #20 tablet 01/29/19 [Rx] Dicyclomine [Bentyl] 20 mg PO QID PRN #20 cap 06/02/19 [Rx] Past Medical History HEENT History: Reports: Other (See Below) Other HEENT History: dental history-allergies to numbning medication Cardiovascular History: Reports: Heart Murmur Respiratory History: Reports: None Gastrointestinal History: Reports: GERD, Hiatal Hernia Genitourinary History: Reports: Other (See Below) Other Genitourinary History: Bladder Prolapse 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 (See Below) 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 SUPERVISOR HOME ECONOMICS History: uterian prolapse, breast lumptectomy Musculoskeletal History: Reports: None Neurological History: Reports: None Psychiatric History: Reports: Anxiety, Depression, Panic Attack Other Psychiatric History: chronic anxiety Endocrine/Metabolic History: Reports: None Hematologic History: Reports: None Immunologic History: Reports: None Oncologic (Cancer) History: Reports: Other (See Below) Other Oncologic History: benign tumors from breasts removed Dermatologic History: Reports: None - Infectious Disease History Infectious Disease History: Reports: Chicken Pox, Measles, Rubella Other Infectious Disease History: sami measles. - Past Surgical History Head Surgeries/Procedures: Reports: None HEENT Surgical History: Reports: Oral Surgery Oncologic Surgical History: Reports: Biopsy of Breast Social & Family History - Family History Family Medical History: Noncontributory - Tobacco Use Smoking Status *Q: Current Every Day Smoker Years of Tobacco use: 35 Packs/Tins Daily: 0.5 - Caffeine Use Caffeine Use: Reports: Coffee, Soda Other Caffeine Use: natural products - Recreational Drug Use Recreational Drug Use: No - Living Situation & Occupation Living situation: Reports: , Alone Occupation: Unemployed ED ROS GENERAL - Review of Systems Review Of Systems: See Below Constitutional: Denies: Fever, Chills GI/Abdominal: Reports: Abdominal Pain. Denies: Anorexia, Black Stool, Bloody Stool, Constipation, Diarrhea, Decreased Appetite, Difficulty Swallowing, Hematemesis, Nausea, Vomiting ED EXAM, GI/ABD - Physical Exam Exam: See Below Exam Limited By: No Limitations General Appearance: Alert, WD/WN, Anxious, Mild Distress Throat/Mouth: Normal Inspection, Normal Lips, Normal Teeth, Normal Gums, Normal Oropharynx, Normal Voice, No Airway Compromise Head: Atraumatic, Normocephalic Neck: Normal Inspection, Supple, Non-Tender, Full Range of Motion Respiratory/Chest: No Respiratory Distress, Lungs Clear, Normal Breath Sounds, No Accessory Muscle Use, Chest Non-Tender Cardiovascular: Normal Peripheral Pulses, Regular Rate, Rhythm, No Edema, No Gallop, No JVD, No Murmur, No Rub GI/Abdominal Exam: Normal Bowel Sounds, Soft, Non-Tender, No Organomegaly, No Distention, No Abnormal Bruit, No Mass, Pelvis Stable Back Exam: Normal Inspection, Full Range of Motion, NT Extremities: Normal Inspection, Normal Range of Motion, Non-Tender, Normal Capillary Refill, No Pedal Edema Neurological: Alert, Oriented Psychiatric: Anxious Skin Exam: Warm, Dry, No Rash Course - Vital Signs Last Recorded V/S: Last Vital Signs Temp 98.4 F 06/02/19 11:02 Pulse 65 06/02/19 11:02 Resp 16 06/02/19 11:02 BP 162/89 H 06/02/19 11:02 Pulse Ox 100 06/02/19 11:02 - Re-Assessments/Exams Free Text/Narrative Re-Assessment/Exam: 06/02/19 11:18 She has been seen here multiple times for similar symptoms, last visit here was 05/24/2019 patient averages 3-5 visits to the emergency department per month for similar symptoms or stress and anxiety. I had a lengthy discussion with patient she needs endoscopy to further evaluate her chronic abdominal pain, we will discharge to home and have patient follow up outpatient with PCP and gastroenterology, patient reports that Bentyl has controlled her pain in the past and she is out and would like a refill of that prescription 06/02/19 11:22 Departure - Departure Time of Disposition: 11:20 Disposition: Home, Self-Care 01 Condition: Good Clinical Impression: Anxiety Abdominal pain Qualifiers: Abdominal location: lower abdomen, unspecified Qualified Code(s): R10.30 - Lower abdominal pain, unspecified - Discharge Information Prescriptions: Dicyclomine [Bentyl] 20 mg PO QID PRN #20 cap PRN Reason: Abdominal Pain Referrals: Jerson Rosales MD [Primary Care Provider] - Forms: ED Department Discharge Additional Instructions: Home, rest, return as needed for worsening condition Sepsis Event Note - Evaluation Sepsis Screening Result: No Definite Risk - Focused Exam Vital Signs: Vital Signs Temp Pulse Resp BP Pulse Ox 06/02/19 11:02 98.4 F 63 16 162/89 H 100 Date Exam was Performed: 06/02/19 Time Exam was Performed: 11:17
== END 2019-06-02 11:40 | disposition home or self-care (01) ==
LOC: JD.ED 10:47
DX: R10.31 Right lower quadrant pain (principal); R10.32 Left lower quadrant pain; F41.9 Anxiety disorder, unspecified; F32.9 Major depressive disorder, single episode, unspecified; Z88.1 Allergy status to other antibiotic agents; Z88.8 Allergy status to other drugs, medicaments and biological substances; Z91.030 Bee allergy status; Z79.899 Other long term (current) drug therapy
CPT/HCPCS: 99283

== ENCOUNTER 2019-06-05 08:56 | Emergency (ER) | payer MEDICARE, OTHER ==
[2019-06-05 09:15] VITALS: BP 171/92; PULSE 64
[2019-06-05] MEDS ORDERED: Magnesium Hydroxide 400 MG/5 ML Susp 30 ML Cup PO ONE (09:37)
--- NOTE | 2019-06-05 09:40 | EDM.PDOC ---
ED HPI GENERAL MEDICAL PROBLEM - General Chief Complaint: Abdominal Pain Stated Complaint: ABDOMINAL PAIN Time Seen by Provider: 06/05/19 09:20 Source of Information: Reports: Patient, RN Notes Reviewed - History of Present Illness INITIAL COMMENTS - FREE TEXT/NARRATIVE: 63-year-old lady comes in with upper abdominal discomfort. She does have history of frequent abdominal discomfort and frequent visits to the ED and I am sure the clinic as well for that problem. The pain today is mild, mainly upper mid abdomen without radiation. There has been no nausea, vomiting or diarrhea. No fever or chills. She has been constipated recently, last BM about 3 days ago. She still does have her appendix and gallbladder. - Related Data Allergies Allergy/AdvReac Type Severity Reaction Status Date / Time amlodipine Allergy Swelling Verified 06/02/19 11:05 amoxicillin Allergy Chest Verified 06/02/19 11:05 Tightness benzocaine Allergy Not Listed Verified 06/02/19 11:05 cortisone Allergy Red Rash Verified 06/02/19 11:05 venom-honey bee Allergy Redness Verified 06/02/19 11:05 [bee venom (honey bee)] and Swelling Corepivicaine Allergy Not Listed Uncoded 06/02/19 11:05 isocaine 2% w/Levonordefien Allergy Not Listed Uncoded 06/02/19 11:05 1:20K Home Meds: Home Meds ALPRAZolam [Xanax] 0.5 mg PO TID PRN #20 tablet 01/29/19 [Rx] Dicyclomine [Bentyl] 20 mg PO BID PRN 06/05/19 [History] Past Medical History HEENT History: Reports: Other (See Below) Other HEENT History: dental history-allergies to numbning medication Cardiovascular History: Reports: Heart Murmur Respiratory History: Reports: None Gastrointestinal History: Reports: GERD, Hiatal Hernia Genitourinary History: Reports: Other (See Below) Other Genitourinary History: Bladder Prolapse 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 (See Below) Other FRUIT DRYER History: uterian prolapse, breast lumptectomy Musculoskeletal History: Reports: None Neurological History: Reports: None Psychiatric History: Reports: Anxiety, Depression, Panic Attack Other Psychiatric History: chronic anxiety Endocrine/Metabolic History: Reports: None Hematologic History: Reports: None Immunologic History: Reports: None Oncologic (Cancer) History: Reports: Other (See Below) Other Oncologic History: benign tumors from breasts removed Dermatologic History: Reports: None - Infectious Disease History Infectious Disease History: Reports: Chicken Pox, Measles, Rubella Other Infectious Disease History: swiss measles. - Past Surgical History Head Surgeries/Procedures: Reports: None HEENT Surgical History: Reports: Oral Surgery Oncologic Surgical History: Reports: Biopsy of Breast Social & Family History - Family History Family Medical History: Noncontributory - Tobacco Use Smoking Status *Q: Current Every Day Smoker Years of Tobacco use: 30 Packs/Tins Daily: 0.5 - Caffeine Use Caffeine Use: Reports: Soda Other Caffeine Use: natural products - Living Situation & Occupation Living situation: Reports: , Alone Occupation: Unemployed ED ROS GENERAL - Review of Systems Review Of Systems: See Below Constitutional: Denies: Fever, Chills, Diaphoresis HEENT: Reports: No Symptoms Respiratory: Denies: Shortness of Breath Cardiovascular: Denies: Chest Pain GI/Abdominal: Reports: Abdominal Pain, Constipation, Other (Eating and drinking okay). Denies: Diarrhea (Mild upper mid abdomen), Nausea, Vomiting Musculoskeletal: Denies: Back Pain Skin: Reports: No Symptoms Neurological: Reports: No Symptoms ED EXAM, GI/ABD - Physical Exam Exam: See Below General Appearance: Alert, Anxious Eyes: Bilateral: Normal Appearance Throat/Mouth: Normal Inspection Head: Atraumatic Neck: Supple Respiratory/Chest: No Respiratory Distress, Lungs Clear, Normal Breath Sounds Cardiovascular: Regular Rate, Rhythm GI/Abdominal Exam: Soft, Non-Tender. No: Guarding, Rebound Extremities: Normal Inspection, Normal Range of Motion Neurological: Alert, No Motor/Sensory Deficits Skin Exam: Warm, Dry, Normal Color Course - Vital Signs Last Recorded V/S: Last Vital Signs Temp 97.3 F 06/05/19 09:14 Pulse 64 06/05/19 09:14 Resp 18 06/05/19 09:14 BP 171/92 H 06/05/19 09:14 Pulse Ox 100 06/05/19 09:14 - Orders/Labs/Meds Meds: Medications Discontinued Medications Generic Name Dose Route Start Last Admin Trade Name Freq PRN Reason Stop Dose Admin Magnesium Hydroxide 30 ml 06/05/19 09:37 06/05/19 09:41 Milk Of Magnesia PO 06/05/19 09:38 30 ml ONETIME ONE Administration - Re-Assessments/Exams Free Text/Narrative Re-Assessment/Exam: 06/05/19 10:09 Patient is afebrile, abdomen is soft, nontender at this time. Labs or x-rays not clinically indicated at this time. Have given a dose of milk of mag. Discharge instructions as documented. Departure - Departure Time of Disposition: 09:38 Disposition: Home, Self-Care 01 Clinical Impression: Abdominal pain, Constipation - Discharge Information Instructions: Constipation, Adult Referrals: Jerson Rosales MD [Primary Care Provider] - Forms: ED Department Discharge Additional Instructions: Continued to drink plenty of fluids, use Bentyl previously prescribed if needed for severe pain or cramping, you've been given 1 dose of milk of magnesia while here in the ED today. That should help you have a BM sometime today and that should help you feel better. Follow up with your medical provider at the clinic as needed. Continue other current medications as previously prescribed. Sepsis Event Note - Evaluation Sepsis Screening Result: No Definite Risk - Focused Exam Vital Signs: Vital Signs Temp Pulse Resp BP Pulse Ox 06/05/19 09:14 97.3 F 64 18 171/92 H 100 Date Exam was Performed: 06/05/19 Time Exam was Performed: 10:07
== END 2019-06-05 09:46 | disposition home or self-care (01) ==
LOC: JD.ED 08:56
DX: K59.00 Constipation, unspecified (principal); F17.210 Nicotine dependence, cigarettes, uncomplicated; Z88.1 Allergy status to other antibiotic agents; Z88.8 Allergy status to other drugs, medicaments and biological substances; Z91.030 Bee allergy status
CPT/HCPCS: 99283; A9270; 99282

== ENCOUNTER 2019-06-07 10:07 | Emergency (ER) | payer MEDICARE, OTHER ==
[2019-06-07 10:21] VITALS: BP 172/86; PULSE 66
--- NOTE | 2019-06-07 11:28 | EDM.PDOCBH ---
ED HPI GENERAL MEDICAL PROBLEM - General Chief Complaint: Behavioral/Psych Stated Complaint: ANXIETY Time Seen by Provider: 06/07/19 10:41 Source of Information: Reports: Patient History Limitations: Reports: No Limitations - History of Present Illness INITIAL COMMENTS - FREE TEXT/NARRATIVE: The patient presents with anxiety. She also feels hot and cold at times. She still has some upper abdominal pain. She has no chest pain or shortness of breath. She has no nausea or vomiting. She has tried her xanax. Onset: Gradual Duration: Day(s): Location: Reports: Abdomen Quality: Reports: Ache Severity: Mild Improves with: Reports: None Worsens with: Reports: None Associated Symptoms: Reports: Fever/Chills. Denies: Chest Pain, Cough, Headaches, Nausea/Vomiting, Shortness of Breath - Related Data Allergies Allergy/AdvReac Type Severity Reaction Status Date / Time amlodipine Allergy Swelling Verified 06/07/19 10:21 amoxicillin Allergy Chest Verified 06/07/19 10:21 Tightness benzocaine Allergy Not Listed Verified 06/07/19 10:21 cortisone Allergy Red Rash Verified 06/07/19 10:21 venom-honey bee Allergy Redness Verified 06/07/19 10:21 [bee venom (honey bee)] and Swelling Corepivicaine Allergy Not Listed Uncoded 06/02/19 11:05 isocaine 2% w/Levonordefien Allergy Not Listed Uncoded 06/02/19 11:05 1:20K Home Meds: Home Meds ALPRAZolam [Xanax] 0.5 mg PO TID PRN #20 tablet 01/29/19 [Rx] Dicyclomine [Bentyl] 20 mg PO BID PRN 06/05/19 [History] Past Medical History HEENT History: Reports: Other (See Below) Other HEENT History: dental history-allergies to numbning medication Cardiovascular History: Reports: Heart Murmur Respiratory History: Reports: None Gastrointestinal History: Reports: GERD, Hiatal Hernia Genitourinary History: Reports: Other (See Below) Other Genitourinary History: Bladder Prolapse 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 PIGMENT History: Reports: Other (See Below) Other MIXER PIGMENT History: uterian prolapse, breast lumptectomy Musculoskeletal History: Reports: None Neurological History: Reports: None Psychiatric History: Reports: Anxiety, Depression, Panic Attack Other Psychiatric History: chronic anxiety Endocrine/Metabolic History: Reports: None Hematologic History: Reports: None Immunologic History: Reports: None Oncologic (Cancer) History: Reports: Other (See Below) Other Oncologic History: benign tumors from breasts removed Dermatologic History: Reports: None - Infectious Disease History Infectious Disease History: Reports: Chicken Pox, Measles, Rubella Other Infectious Disease History: [place] measles. - Past Surgical History Head Surgeries/Procedures: Reports: None HEENT Surgical History: Reports: Oral Surgery Oncologic Surgical History: Reports: Biopsy of Breast Social & Family History - Family History Family Medical History: Noncontributory - Tobacco Use Smoking Status *Q: Never Smoker - Caffeine Use Caffeine Use: Reports: Soda Other Caffeine Use: natural products - Recreational Drug Use Recreational Drug Use: No - Living Situation & Occupation Living situation: Reports: , Alone Occupation: Unemployed ED ROS GENERAL - Review of Systems Review Of Systems: See Below Constitutional: Reports: Fever, Chills HEENT: Reports: No Symptoms Respiratory: Reports: No Symptoms Cardiovascular: Reports: No Symptoms Endocrine: Reports: No Symptoms GI/Abdominal: Reports: Abdominal Pain : Reports: No Symptoms Musculoskeletal: Reports: No Symptoms Skin: Reports: No Symptoms ED EXAM, BEHAVIORAL HEALTH - Physical Exam Exam: See Below Exam Limited By: No Limitations General Appearance: Alert, No Apparent Distress Ears: Normal External Exam Nose: Normal Inspection Head: Atraumatic, Normocephalic Neck: Normal Inspection Respiratory/Chest: No Respiratory Distress, Lungs Clear, Normal Breath Sounds Cardiovascular: Regular Rate, Rhythm, No Edema, No Murmur GI/Abdominal: Soft, Non-Tender, No Organomegaly, No Mass COURSE, BEHAVIORAL HEALTH COMP - Course Vital Signs: Last Vital Signs Temp 98.5 F 06/07/19 10:19 Pulse 66 06/07/19 10:19 Resp 15 06/07/19 10:19 BP 172/86 H 06/07/19 10:19 Pulse Ox 100 06/07/19 10:19 Re-Assessment/Re-Exam: I will have her take her xanax at home. Departure - Departure Time of Disposition: 11:30 Disposition: Home, Self-Care 01 Condition: Good Clinical Impression: Anxiety - Discharge Information *PRESCRIPTION DRUG MONITORING PROGRAM REVIEWED*: Not Applicable *COPY OF PRESCRIPTION DRUG MONITORING REPORT IN PATIENT LINDA: Not Applicable Referrals: Jerson Rosales MD [Primary Care Provider] - Additional Instructions: Take your medication as prescribed. Follow up with Dr Soto. Sepsis Event Note - Evaluation Sepsis Screening Result: No Definite Risk - Focused Exam Vital Signs: Vital Signs Temp Pulse Resp BP Pulse Ox 06/07/19 10:19 98.5 F 66 15 172/86 H 100 Date Exam was Performed: 06/07/19 Time Exam was Performed: 11:24
== END 2019-06-07 11:50 | disposition home or self-care (01) ==
LOC: JD.ED 10:07
DX: F41.9 Anxiety disorder, unspecified (principal); F32.9 Major depressive disorder, single episode, unspecified; Z88.1 Allergy status to other antibiotic agents; Z88.8 Allergy status to other drugs, medicaments and biological substances; Z91.030 Bee allergy status; Z79.899 Other long term (current) drug therapy
CPT/HCPCS: 99282; 99283

== ENCOUNTER 2019-06-23 10:30 | Emergency (ER) | payer MEDICARE, OTHER ==
[2019-06-23 11:01] VITALS: BP 156/89; PULSE 64
--- NOTE | 2019-06-23 11:12 | EDM.PDOC ---
ED HPI GENERAL MEDICAL PROBLEM - General Chief Complaint: Gastrointestinal Problem Stated Complaint: ABDOMINAL PAIN/STRESSED Time Seen by Provider: 06/23/19 10:50 - History of Present Illness INITIAL COMMENTS - FREE TEXT/NARRATIVE: 63-year-old patient presents emergency room with abdominal pain and lots of stress. This patient has been in the emergency room over 20 times since the middle of this last year with similar complaints results have not yielded anything. The patient does have a primary care physician but is been quite a long time since she seen him. Patient suffers from anxiety. Denies nausea or vomiting no diarrhea. She has not had any fevers or chills. She is concerned that she is exposed to mold in the apartment she lives in. And her chiropractor told her to have her pancreas checked. Patient uses Bentyl as needed and Xanax. She is on numerous supplemental vitamins and nutritional supplements she cannot name them all. Patient also mentioned she to having chest pain she is not sure how long this is been going on she is not sure of any triggers. And then she has a history of a prolapsed bladder and wonder if that is contributing to her overall symptoms. Lower Abdomen Pain Score (Numeric/FACES): 8 - Related Data Allergies Allergy/AdvReac Type Severity Reaction Status Date / Time amlodipine Allergy Swelling Verified 06/07/19 10:21 amoxicillin Allergy Chest Verified 06/07/19 10:21 Tightness benzocaine Allergy Not Listed Verified 06/07/19 10:21 cortisone Allergy Red Rash Verified 06/07/19 10:21 Influenza Virus Vaccines Allergy Anaphylactic Verified 06/23/19 11:39 Shock venom-honey bee Allergy Redness Verified 06/07/19 10:21 [bee venom (honey bee)] and Swelling Corepivicaine Allergy Not Listed Uncoded 06/02/19 11:05 isocaine 2% w/Levonordefien Allergy Not Listed Uncoded 06/02/19 11:05 1:20K Home Meds: Home Meds ALPRAZolam [Xanax] 0.5 mg PO TID PRN #20 tablet 01/29/19 [Rx] Dicyclomine [Bentyl] 20 mg PO BID PRN 06/05/19 [History] Past Medical History HEENT History: Reports: Other (See Below) Other HEENT History: dental history-allergies to numbning medication Cardiovascular History: Reports: Heart Murmur Respiratory History: Reports: None Gastrointestinal History: Reports: GERD, Hiatal Hernia Genitourinary History: Reports: Other (See Below) Other Genitourinary History: Bladder Prolapse 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 (See Below) Other MEAT MOLDER History: uterian prolapse, breast lumptectomy Musculoskeletal History: Reports: None Neurological History: Reports: None Psychiatric History: Reports: Anxiety, Depression, Panic Attack Other Psychiatric History: chronic anxiety Endocrine/Metabolic History: Reports: None Hematologic History: Reports: None Immunologic History: Reports: None Oncologic (Cancer) History: Reports: Other (See Below) Other Oncologic History: benign tumors from breasts removed Dermatologic History: Reports: None - Infectious Disease History Infectious Disease History: Reports: Chicken Pox, Measles, Rubella Other Infectious Disease History: [place] measles. - Past Surgical History Head Surgeries/Procedures: Reports: None HEENT Surgical History: Reports: Oral Surgery Oncologic Surgical History: Reports: Biopsy of Breast Social & Family History - Family History Family Medical History: Noncontributory - Caffeine Use Caffeine Use: Reports: Soda Other Caffeine Use: natural products - Living Situation & Occupation Living situation: Reports: , Alone Occupation: Unemployed ED ROS GENERAL - Review of Systems Review Of Systems: See Below Constitutional: Denies: Fever, Chills HEENT: Reports: No Symptoms Respiratory: Reports: No Symptoms Cardiovascular: Reports: Chest Pain. Denies: Blood Pressure Problem, Dyspnea on Exertion, Lightheadedness, Palpitations, Syncope Endocrine: Reports: Fatigue GI/Abdominal: Reports: No Symptoms : Reports: No Symptoms Musculoskeletal: Reports: No Symptoms Skin: Reports: No Symptoms Neurological: Reports: No Symptoms ED EXAM, GENERAL - Physical Exam Exam: See Below Exam Limited By: No Limitations General Appearance: Alert, No Apparent Distress Head: Atraumatic, Normocephalic Neck: Normal Inspection, Supple, Non-Tender, Full Range of Motion. No: Lymphadenopathy (L), Lymphadenopathy (R) Respiratory/Chest: No Respiratory Distress, Lungs Clear, Normal Breath Sounds Cardiovascular: Regular Rate, Rhythm, No Edema, No Murmur GI/Abdominal: Normal Bowel Sounds, Soft, Other (He is discomfort no localizing symptoms no rigidity no rebound no guarding) Back Exam: Normal Inspection. No: CVA Tenderness (L), CVA Tenderness (R) Extremities: Normal Inspection, No Pedal Edema EKG INTERPRETATION EKG Date: 06/23/19 Rhythm: NSR [place]: Normal P-Wave: Present QRS: Other (LVH criteria met otherwise no significant abnormality) ST-T: Normal QT: Normal Comparison: No Change (Change identified compared to 12/23/2018) EKG Interpretation Comments: Abnormal nonacute Course - Vital Signs Last Recorded V/S: Last Vital Signs Temp 36.7 C 06/23/19 10:54 Pulse 64 06/23/19 10:54 Resp 16 06/23/19 10:54 BP 156/89 H 06/23/19 10:54 Pulse Ox 100 06/23/19 10:54 - Orders/Labs/Meds Orders: Active Orders 24 hr Category Date Time Status EKG Documentation Completion [RC] STAT Care 06/23/19 11:12 Active Labs: Laboratory Tests 06/23/19 06/23/19 Range/Units 11:29 11:29 WBC 6.16 (3.98-10.04) K/mm3 RBC 5.02 (3.98-5.22) M/mm3 Hgb 16.0 H (11.2-15.7) gm/dl Hct 46.0 H (34.1-44.9) % MCV 91.6 (79.4-94.8) fl MCH 31.9 (25.6-32.2) pg MCHC 34.8 (32.2-35.5) g/dl RDW Std Deviation 42.3 (36.4-46.3) fL Plt Count 378 H (182-369) K/mm3 MPV 8.7 L (9.4-12.3) fl Neutrophils % (Manual) 72 H (40-60) % Band Neutrophils % 0 (0-10) % Lymphocytes % (Manual) 19 L (20-40) % Atypical Lymphs % 0 % Monocytes % (Manual) 8 (2-10) % Eosinophils % (Manual) 1 (0.7-5.8) % Basophils % (Manual) 0 L (0.1-1.2) Platelet Estimate Adequate RBC Morph Comment Normal Sodium 142 (136-145) mEq/L Potassium 3.6 (3.5-5.1) mEq/L Chloride 106 (98-107) mEq/L Carbon Dioxide 26 (21-32) mEq/L Anion Gap 13.6 (5-15) BUN 12 (7-18) mg/dL Creatinine 0.8 (0.55-1.02) mg/dL Est Cr Clr Drug Dosing 52.71 mL/min Estimated GFR (MDRD) > 60 (>60) mL/min BUN/Creatinine Ratio 15.0 (14-18) Glucose 93 (80-115) mg/dL Calcium 8.6 (8.5-10.1) mg/dL Total Bilirubin 0.5 (0.2-1.0) mg/dL AST 24 (15-37) U/L ALT 34 (14-59) U/L Alkaline Phosphatase 65 (46-116) U/L Troponin I < 0.017 (0.00-0.056) ng/mL Total Protein 7.0 (6.4-8.2) g/dl Albumin 3.7 (3.4-5.0) g/dl Globulin 3.3 gm/dL Albumin/Globulin Ratio 1.1 (1-2) Lipase 143 (73-393) U/L - Re-Assessments/Exams Free Text/Narrative Re-Assessment/Exam: 06/23/19 12:35 EKG showed no acute changes troponin normal. Remaining labs normal including a lipase. This patient has been in his emergency room so many times for similar complaints work-ups results seem to always be similar. She is instructed to follow-up with her regular physician. She is instructed to see a counselor. Departure - Departure Time of Disposition: 12:37 Disposition: Home, Self-Care 01 Clinical Impression: Anxiety, Abdominal pain, Chest pain - Discharge Information Referrals: Jerson Rosalse MD [Primary Care Provider] - Forms: ED Department Discharge Additional Instructions: Follow-up with your regular physician discuss your health concerns and your anxiety. Establish with a counselor they may be able to help with your anxiety. Sepsis Event Note - Evaluation Sepsis Screening Result: No Definite Risk - Focused Exam Vital Signs: Vital Signs Temp Pulse Resp BP Pulse Ox 06/23/19 10:54 36.7 C 64 16 156/89 H 100 Date Exam was Performed: 06/23/19 Time Exam was Performed: 12:25 - My Orders Last 24 Hours: My Active Orders 06/23/19 11:12 EKG Documentation Completion [RC] STAT - Assessment/Plan Last 24 Hours: My Active Orders 06/23/19 11:12 EKG Documentation Completion [RC] STAT
== END 2019-06-23 12:45 | disposition home or self-care (01) ==
LOC: JD.ED 10:30
DX: R07.9 Chest pain, unspecified (principal); F41.9 Anxiety disorder, unspecified; R10.30 Lower abdominal pain, unspecified; Z88.8 Allergy status to other drugs, medicaments and biological substances; Z88.0 Allergy status to penicillin; Z88.5 Allergy status to narcotic agent; Z88.4 Allergy status to anesthetic agent; Z88.7 Allergy status to serum and vaccine; Z91.030 Bee allergy status; Z79.899 Other long term (current) drug therapy
CPT/HCPCS: 36415; 80053; 83690; 84484; 85007; 85027; 93005; 93010; 99284; 99284-25

== ENCOUNTER 2019-06-25 09:30 | Emergency (ER) | payer MEDICARE, OTHER ==
[2019-06-25 10:00] VITALS: BP 162/96; PULSE 82
--- NOTE | 2019-06-25 10:26 | EDM.PDOC ---
ED HPI GENERAL MEDICAL PROBLEM - General Chief Complaint: General Stated Complaint: ABDOMINAL PAIN AND STRESS Time Seen by Provider: 06/25/19 10:10 Source of Information: Reports: Patient History Limitations: Reports: No Limitations - History of Present Illness INITIAL COMMENTS - FREE TEXT/NARRATIVE: Patient is a 63-year-old female who presents to the emergency department with complaints of stress and abdominal pain. This has been an ongoing complaint for her and she has been seen numerous times in this emergency department for this. Her last visit was 2 days ago. Patient describes the pain as generalized abdominal cramping and tenderness. She does have a history of IBS and constipation. She takes Bentyl for her abdominal cramping and has been using Xanax for anxiety. At her previous visit she was advised to follow-up with her primary care provider, Dr. Soto, however she states that she has not made an appointment with him. She denies any fever, chills, vomiting, or diarrhea. She has not been using her daily MiraLAX as she states that she doesn 't think she's been needing it. Labs were completed when she was in the ER 2 days ago and they were grossly unremarkable. He does have a history of prolapsed bladder and she is wondering if this is causing her symptoms. Lower Abdominal Pain Score (Numeric/FACES): 4 - Related Data Allergies Allergy/AdvReac Type Severity Reaction Status Date / Time amlodipine Allergy Swelling Verified 06/25/19 10:00 amoxicillin Allergy Chest Verified 06/25/19 10:00 Tightness benzocaine Allergy Not Listed Verified 06/25/19 10:00 cortisone Allergy Red Rash Verified 06/25/19 10:00 Influenza Virus Vaccines Allergy Anaphylactic Verified 06/25/19 10:00 Shock venom-honey bee Allergy Redness Verified 06/25/19 10:00 [bee venom (honey bee)] and Swelling Corepivicaine Allergy Not Listed Uncoded 06/02/19 11:05 isocaine 2% w/Levonordefien Allergy Not Listed Uncoded 06/02/19 11:05 1:20K Home Meds: Home Meds ALPRAZolam [Xanax] 0.5 mg PO TID PRN #20 tablet 01/29/19 [Rx] Dicyclomine [Bentyl] 20 mg PO BID PRN 06/05/19 [History] Past Medical History HEENT History: Reports: Other (See Below) Other HEENT History: dental history-allergies to numbning medication Cardiovascular History: Reports: Heart Murmur Respiratory History: Reports: None Gastrointestinal History: Reports: GERD, Hiatal Hernia Genitourinary History: Reports: Other (See Below) Other Genitourinary History: Bladder Prolapse 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 (See Below) 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 [employer]OX MECH[employer]IC 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: uterian prolapse, breast lumptectomy Musculoskeletal History: Reports: None Neurological History: Reports: None Psychiatric History: Reports: Anxiety, Depression, Panic Attack Other Psychiatric History: chronic anxiety Endocrine/Metabolic History: Reports: None Hematologic History: Reports: None Immunologic History: Reports: None Oncologic (Cancer) History: Reports: Other (See Below) Other Oncologic History: benign tumors from breasts removed Dermatologic History: Reports: None - Infectious Disease History Infectious Disease History: Reports: Chicken Pox, Measles, Rubella Other Infectious Disease History: [place] measles. - Past Surgical History Head Surgeries/Procedures: Reports: None HEENT Surgical History: Reports: Oral Surgery Oncologic Surgical History: Reports: Biopsy of Breast Social & Family History - Family History Family Medical History: Noncontributory - Tobacco Use Smoking Status *Q: Unknown Ever Smoked - Caffeine Use Caffeine Use: Reports: Soda Other Caffeine Use: natural products - Living Situation & Occupation Living situation: Reports: , Alone Occupation: Unemployed ED ROS GENERAL - Review of Systems Review Of Systems: Comprehensive ROS is negative, except as noted in HPI. ED EXAM, GENERAL - Physical Exam Exam: See Below Exam Limited By: No Limitations General Appearance: Alert, WD/WN, No Apparent Distress Respiratory/Chest: No Respiratory Distress, Lungs Clear, Normal Breath Sounds, No Accessory Muscle Use, Chest Non-Tender Cardiovascular: Normal Peripheral Pulses, Regular Rate, Rhythm, No Edema, No Murmur GI/Abdominal: Normal Bowel Sounds, Soft, No Distention, Other (Mild tenderness to the epigastrium and mid lower abdomen. No guarding, rigidity, or rebound tenderness.) Neurological: Alert, Other (Patient is forgetful. She will lose her train of thought mid conversation. She appears to not remember much of what was discussed with her the last time she was in the ER.) Psychiatric: Normal Affect, Normal Mood Skin Exam: Warm, Dry, Intact, Normal Color, No Rash Course - Vital Signs Last Recorded V/S: Last Vital Signs Temp 97.6 F 06/25/19 09:57 Pulse 82 06/25/19 09:57 Resp 16 06/25/19 09:57 BP 162/96 H 06/25/19 09:57 Pulse Ox 100 06/25/19 09:57 - Orders/Labs/Meds Orders: Active Orders 24 hr Category Date Time Status Abdomen 1V Flat [CR] Stat Exams 06/25/19 10:21 Taken - Re-Assessments/Exams Free Text/Narrative Re-Assessment/Exam: The patient presents with complaints of stress and abdominal pain. Her complaints are consistent with what she has complained of in her previous visits. Labs were just completed 2 days ago and are grossly unremarkable. I do not feel it necessary to repeat labs at this time as her symptoms have not changed or worsened since that time. I will complete a 1 view abdomen x-ray as she has had a history of chronic constipation in the past. I did discuss with her that she needs to call and schedule appointment with her primary care provider Dr. Soto to have better management over her stress. We did discuss that with IBS, stress will often exacerbate the symptoms. 06/25/19 10:47 Abdomen x-ray does show a large amount of stool throughout the colon. We'll send the patient home with a bottle magnesium citrate as well as instructions to take MiraLAX twice daily for the next couple days. I once again emphasized the importance of forgetting and with Dr. Soto and she verbalized understanding. Discharge instructions as noted Departure - Departure Time of Disposition: 10:48 Disposition: Home, Self-Care 01 Condition: Fair Clinical Impression: Abdominal pain Qualifiers: Abdominal location: generalized Qualified Code(s): R10.84 - Generalized abdominal pain - Discharge Information *PRESCRIPTION DRUG MONITORING PROGRAM REVIEWED*: No *COPY OF PRESCRIPTION DRUG MONITORING REPORT IN PATIENT LINDA: No Instructions: Abdominal Pain, Adult, [id number] Referrals: Jerson Rosales MD [Primary Care Provider] - Forms: ED Department Discharge Additional Instructions: You were seen in the emergency Department today for chronic abdominal pain and anxiety. Your abdomen x-ray did show a large amount of stool throughout her colon which may be worsening her symptoms of abdominal pain. You've been sent home with a bottle of magnesium citrate. I recommend that you drink this when you get home. This should work over the course of a few hours and produce a number of bowel movements. I also recommend that you take MiraLAX twice daily for the next couple days and then decrease to once daily. As we discussed, it is important that you follow up with your primary care provider, Dr. Soto, for ongoing management of urinary anxiety and abdominal pain. If you experience any new or worsening symptoms, please don't hesitate to return to the emergency department. Sepsis Event Note - Evaluation Sepsis Screening Result: No Definite Risk - Focused Exam Vital Signs: Vital Signs Temp Pulse Resp BP Pulse Ox 06/25/19 09:57 97.6 F 82 16 162/96 H 100 Date Exam was Performed: 06/25/19 Time Exam was Performed: 10:47 - My Orders Last 24 Hours: My Active Orders 06/25/19 10:21 Abdomen 1V Flat [CR] Stat - Assessment/Plan Last 24 Hours: My Active Orders 06/25/19 10:21 Abdomen 1V Flat [CR] Stat
[2019-06-25] MEDS ORDERED: Magnesium Citrate Solution 296 ML Bottle PO ONE (10:47)
--- NOTE | 2019-06-25 13:26 | CR ---
Abdomen: Supine view of the abdomen was obtained. Comparison: Previous abdominal x-ray of 05/24/19. Scattered gas within small bowel or colon is seen which appears within normal limits. No abnormal calcifications or discrete soft tissue abnormality seen. Bony structures are within normal limits for the patient's age. Impression: 1. Nothing acute is seen on supine abdominal x-ray. Diagnostic code #1 This report was dictated in [place] Standard Time
== END 2019-06-25 11:03 | disposition home or self-care (01) ==
LOC: JD.ED 09:30
DX: R10.84 Generalized abdominal pain (principal); R10.30 Lower abdominal pain, unspecified; F43.9 Reaction to severe stress, unspecified; F41.9 Anxiety disorder, unspecified; F32.9 Major depressive disorder, single episode, unspecified; Z79.899 Other long term (current) drug therapy; Z88.8 Allergy status to other drugs, medicaments and biological substances; Z91.030 Bee allergy status; Z88.1 Allergy status to other antibiotic agents; Z88.7 Allergy status to serum and vaccine
CPT/HCPCS: 74018; 99284; A9270; 99281

== ENCOUNTER 2019-07-03 10:18 | Emergency (ER) | payer MEDICARE, OTHER ==
--- NOTE | 2019-07-03 10:56 | EDM.PDOC ---
ED HPI GENERAL MEDICAL PROBLEM - General Chief Complaint: Abdominal Pain Stated Complaint: ABDOMINAL PAIN Time Seen by Provider: 07/03/19 10:30 Source of Information: Reports: Patient History Limitations: Reports: No Limitations - History of Present Illness INITIAL COMMENTS - FREE TEXT/NARRATIVE: The patient presents with abdominal pain and left ear fullness. The abdominal pain is a chronic problem. She has been here many times before. She recently saw her chiropractor and he recommended not taking some supplements she is taking to give her liver a break. She is wondering what I think. She also has been having some fullness in her left ear canal. She has no fever or chills. She has no chest pain or shortness of breath. Onset: Gradual Duration: Week(s): Location: Reports: Abdomen Quality: Reports: Ache Severity: Mild Improves with: Reports: None Worsens with: Reports: None Associated Symptoms: Reports: No Other Symptoms Upper Abdomen Pain Score (Numeric/FACES): 8 - Related Data Allergies Allergy/AdvReac Type Severity Reaction Status Date / Time amlodipine Allergy Swelling Verified 07/03/19 10:33 amoxicillin Allergy Chest Verified 07/03/19 10:33 Tightness benzocaine Allergy Not Listed Verified 07/03/19 10:33 cortisone Allergy Red Rash Verified 07/03/19 10:33 Influenza Virus Vaccines Allergy Anaphylactic Verified 07/03/19 10:33 Shock venom-honey bee Allergy Redness Verified 07/03/19 10:33 [bee venom (honey bee)] and Swelling Corepivicaine Allergy Not Listed Uncoded 07/03/19 10:33 isocaine 2% w/Levonordefien Allergy Not Listed Uncoded 07/03/19 10:33 1:20K Home Meds: Home Meds ALPRAZolam [Xanax] 0.5 mg PO TID PRN #20 tablet 01/29/19 [Rx] Dicyclomine [Bentyl] 20 mg PO BID PRN 06/05/19 [History] Past Medical History HEENT History: Reports: Other (See Below) Other HEENT History: dental history-allergies to numbning medication Cardiovascular History: Reports: Heart Murmur Respiratory History: Reports: None Gastrointestinal History: Reports: GERD, Hiatal Hernia Genitourinary History: Reports: Other (See Below) Other Genitourinary History: Bladder Prolapse PRACTICE SUPPORT SPECIALIST History: Reports: , Other (See Below) Other PRACTICE SUPPORT SPECIALIST History: uterian prolapse, breast lumptectomy Musculoskeletal History: Reports: None Neurological History: Reports: None Psychiatric History: Reports: Anxiety, Depression, Panic Attack Other Psychiatric History: chronic anxiety Endocrine/Metabolic History: Reports: None Hematologic History: Reports: None Immunologic History: Reports: None Oncologic (Cancer) History: Reports: Other (See Below) Other Oncologic History: benign tumors from breasts removed Dermatologic History: Reports: None - Infectious Disease History Infectious Disease History: Reports: Chicken Pox, Measles, Rubella Other Infectious Disease History: trinidadian measles. - Past Surgical History Head Surgeries/Procedures: Reports: None HEENT Surgical History: Reports: Oral Surgery Oncologic Surgical History: Reports: Biopsy of Breast Social & Family History - Family History Family Medical History: Noncontributory - Tobacco Use Smoking Status *Q: Current Every Day Smoker Years of Tobacco use: 50 Packs/Tins Daily: 0.5 - Caffeine Use Caffeine Use: Reports: None Other Caffeine Use: natural products - Recreational Drug Use Recreational Drug Use: No - Living Situation & Occupation Living situation: Reports: , Alone Occupation: Unemployed ED ROS GENERAL - Review of Systems Review Of Systems: See Below Constitutional: Reports: No Symptoms HEENT: Reports: No Symptoms Respiratory: Reports: No Symptoms Cardiovascular: Reports: No Symptoms Endocrine: Reports: No Symptoms GI/Abdominal: Reports: Abdominal Pain. Denies: Nausea, Vomiting : Reports: No Symptoms Musculoskeletal: Reports: No Symptoms ED EXAM, GI/ABD - Physical Exam Exam: See Below Exam Limited By: No Limitations General Appearance: Alert, No Apparent Distress Ears: Normal External Exam, Other (Cerumen in both canals) Nose: Normal Inspection Throat/Mouth: Normal Inspection Head: Atraumatic, Normocephalic Neck: Normal Inspection Respiratory/Chest: No Respiratory Distress, Lungs Clear, Normal Breath Sounds Cardiovascular: Regular Rate, Rhythm, No Edema, No Murmur GI/Abdominal Exam: Soft, Non-Tender, No Organomegaly, No Mass Back Exam: Normal Inspection Extremities: Normal Inspection Course - Vital Signs Last Recorded V/S: Last Vital Signs Temp 97.0 F 07/03/19 10:30 Pulse 62 07/03/19 10:30 Resp 18 07/03/19 10:30 BP 162/106 H 07/03/19 10:30 Pulse Ox 100 07/03/19 10:30 Departure - Departure Time of Disposition: 10:55 Disposition: Home, Self-Care 01 Condition: Good Clinical Impression: Abdominal pain Qualifiers: Abdominal location: upper abdomen, unspecified Qualified Code(s): R10.10 - Upper abdominal pain, unspecified - Discharge Information *PRESCRIPTION DRUG MONITORING PROGRAM REVIEWED*: Not Applicable *COPY OF PRESCRIPTION DRUG MONITORING REPORT IN PATIENT LINDA: Not Applicable Referrals: Jerson Rosales MD [Primary Care Provider] - Additional Instructions: Stop taking the supplements for awhile and see if that helps. Get some debrox from [facility] or any pharmacy to try to help get rid of some ear wax. Follow up with your doctor. Sepsis Event Note - Evaluation Sepsis Screening Result: No Definite Risk - Focused Exam Vital Signs: Vital Signs Temp Pulse Resp BP Pulse Ox 07/03/19 10:30 97.0 F 62 18 162/106 H 100 Date Exam was Performed: 07/03/19 Time Exam was Performed: 10:52
[2019-07-03 11:04] VITALS: BP 166/97; PULSE 64
== END 2019-07-03 11:00 | disposition home or self-care (01) ==
LOC: JD.ED 10:18
DX: R10.10 Upper abdominal pain, unspecified (principal); H61.23 Impacted cerumen, bilateral; F17.210 Nicotine dependence, cigarettes, uncomplicated; Z88.7 Allergy status to serum and vaccine; Z91.030 Bee allergy status; Z98.890 Other specified postprocedural states; Z88.1 Allergy status to other antibiotic agents; Z88.8 Allergy status to other drugs, medicaments and biological substances
CPT/HCPCS: 99281; 99283

== ENCOUNTER 2019-07-11 09:36 | Emergency (ER) | payer MEDICARE, OTHER ==
[2019-07-11 10:02] VITALS: BP 162/93; PULSE 77
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
--- NOTE | 2019-07-11 11:31 | CR ---
Abdomen: Supine view of the abdomen was obtained. Comparison: Prior abdominal x-ray of 05/24/19. Slightly increased stool within the colon is seen. Bowel gas pattern is otherwise unremarkable. No soft tissue abnormality is appreciated. No abnormal calcifications are seen. Bony structures appear within normal limits for the patient's age. Impression: 1. Slight increased stool within the colon. Diagnostic code #2 This report was dictated in [place] Standard Time
== END 2019-07-11 10:47 | disposition home or self-care (01) ==
LOC: JD.ED 09:36
DX: K59.01 Slow transit constipation (principal); F17.210 Nicotine dependence, cigarettes, uncomplicated; Z88.1 Allergy status to other antibiotic agents; Z88.8 Allergy status to other drugs, medicaments and biological substances; Z91.030 Bee allergy status; Z88.6 Allergy status to analgesic agent; Z88.7 Allergy status to serum and vaccine; Z79.899 Other long term (current) drug therapy
CPT/HCPCS: 74018; 74018-26; 99284-25

== ENCOUNTER 2019-07-11 11:13 | Emergency (ER) | payer MEDICARE, OTHER ==
--- NOTE | 2019-07-11 11:33 | EDM.PDOC ---
ED HPI GENERAL MEDICAL PROBLEM - General Chief Complaint: Chest Pain Stated Complaint: CHEST PAIN AND LT ARM PAIN Time Seen by Provider: 07/11/19 11:32 Source of Information: Reports: Patient History Limitations: Reports: No Limitations - History of Present Illness INITIAL COMMENTS - FREE TEXT/NARRATIVE: This patient returned to the ED less than an hour after being discharged. Her chief complaint 1 I see no was diffuse abdominal pain with intermittent constipation and diarrhea going on for several days. Of note she is seen through the ED almost every week and this is a chronic problem for her. She suffers from chronic constipation. She is concerned that she has pancreatitis and that her thyroid gland is not working good but on last visit labs were done and they were normal in this regard. She returns now complaining of central chest pain and some pain in her left arm. This was not a complaint an hour ago. When she was seen. Her lungs and heart were normal to examination and her vital signs revealed hypertension which she states is chronic for her and she did not want treatment for this as she has a [id number] preparation that she takes for blood pressure control. I believe this is secondary to her chronic anxiety disorder. Onset: Today, Unknown/Unsure Duration: Hour(s):, Intermittent, Waxing/Waning Location: Reports: Chest (Central chest with occasional pain into her left arm) Quality: Reports: Ache ( medial aspect.), Pressure Severity: Mild Improves with: Reports: None Worsens with: Reports: None Context: Denies: Activity, Exercise, Lifting, Sick Contact, Trauma, Other Associated Symptoms: Reports: Chest Pain, Loss of Appetite, Malaise (Chronic), Weakness. Denies: No Other Symptoms, Confusion, Cough, cough w sputum, Diaphoresis, Fever/Chills, Headaches, Nausea/Vomiting, Rash, Seizure, Shortness of Breath, Syncope Treatments KNOBBER: Reports: Other (see below) (Chronic. Only prescribed medications.) Left Chest Pain Score (Numeric/FACES): 5 - Related Data Allergies Allergy/AdvReac Type Severity Reaction Status Date / Time amlodipine Allergy Swelling Verified 07/11/19 11:35 amoxicillin Allergy Chest Verified 07/11/19 11:35 Tightness benzocaine Allergy Not Listed Verified 07/11/19 11:35 cortisone Allergy Red Rash Verified 07/11/19 11:35 Influenza Virus Vaccines Allergy Anaphylactic Verified 07/11/19 11:35 Shock venom-honey bee Allergy Redness Verified 07/11/19 11:35 [bee venom (honey bee)] and Swelling Corepivicaine Allergy Not Listed Uncoded 07/11/19 11:35 isocaine 2% w/Levonordefien Allergy Not Listed Uncoded 07/11/19 11:35 1:20K Home Meds: Home Meds ALPRAZolam [Xanax] 0.5 mg PO TID PRN #20 tablet 01/29/19 [Rx] Dicyclomine [Bentyl] 20 mg PO BID PRN 06/05/19 [History] amLODIPine [Norvasc] 10 mg PO DAILY #30 tab 07/11/19 [Rx] polyethylene glycoL 3350 [MiraLAX] 17 gm PO DAILY #1 container 07/11/19 [Rx] Past Medical History HEENT History: Reports: Other (See Below) Other HEENT History: dental history-allergies to numbning medication Cardiovascular History: Reports: Heart Murmur Respiratory History: Reports: None Gastrointestinal History: Reports: GERD, Hiatal Hernia Genitourinary History: Reports: Other (See Below) Other Genitourinary History: Bladder Prolapse 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: , 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 (See Below) Other GEODETIC SURVEYOR TECHNOLOGIST History: uterian prolapse, breast lumptectomy Musculoskeletal History: Reports: None Neurological History: Reports: None Psychiatric History: Reports: Anxiety, Depression, Panic Attack Other Psychiatric History: chronic anxiety Endocrine/Metabolic History: Reports: None Hematologic History: Reports: None Immunologic History: Reports: None Oncologic (Cancer) History: Reports: Other (See Below) Other Oncologic History: benign tumors from breasts removed Dermatologic History: Reports: None - Infectious Disease History Infectious Disease History: Reports: Chicken Pox, Measles, Rubella Other Infectious Disease History: hebrew measles. - Past Surgical History Head Surgeries/Procedures: Reports: None HEENT Surgical History: Reports: Oral Surgery Oncologic Surgical History: Reports: Biopsy of Breast Social & Family History - Family History Family Medical History: Noncontributory - Caffeine Use Caffeine Use: Reports: Coffee Other Caffeine Use: natural products - Living Situation & Occupation Living situation: Reports: , Alone Occupation: Unemployed ED ROS GENERAL - Review of Systems Review Of Systems: See Below Constitutional: Reports: Malaise, Fatigue, Decreased Appetite, Weight Loss. Denies: Fever, Chills, Weakness HEENT: Reports: No Symptoms Respiratory: Reports: No Symptoms Cardiovascular: Reports: Chest Pain, Blood Pressure Problem (Antral chest pain with radiation to the left arm chronic hypertension poorly controlled but patient refuses to take pharmaceutical medication and prefers jbgq-stb-[id number] medication for blood pressure control.). Denies: Claudication, Dyspnea on Exertion, Edema, Lightheadedness, Orthopnea Endocrine: Reports: Fatigue GI/Abdominal: Reports: Abdominal Pain, Constipation (Chronic abdominal pain which he labels and irritable bowel syndrome. Strip chronic constipation every time I have seen her.) : Reports: Frequency, Other (Occasional bleeding per vagina. She is known to have a significant prolapse of her uterus and a large cystocele and rectocele.) Musculoskeletal: Reports: No Symptoms Skin: Reports: No Symptoms Neurological: Reports: No Symptoms Psychiatric: Reports: Anxiety Hematologic/Lymphatic: Reports: No Symptoms Immunologic: Reports: No Symptoms ED EXAM, GENERAL - Physical Exam Exam: See Below Exam Limited By: No Limitations General Appearance: Alert, WD/WN, No Apparent Distress, Other (Vital signs reveal temperature 36.6 pulse 62 and sinus respectively 16 with O2 sats of 99% on room air. Initial blood pressure was elevated 187/101. It is currently 177/ 95.) Eye Exam: Bilateral Eye: Normal Inspection, PERRL Throat/Mouth: Normal Inspection, Normal Lips, Normal Oropharynx Head: Atraumatic, Normocephalic Neck: Normal Inspection, Supple, Non-Tender, Full Range of Motion Respiratory/Chest: No Respiratory Distress, Lungs Clear, Normal Breath Sounds, No Accessory Muscle Use Cardiovascular: Normal Peripheral Pulses, Regular Rate, Rhythm, No Edema, No Gallop, No JVD, No Murmur, No Rub Peripheral Pulses: 2+: Posterior Tibial (L), Posterior Tibial (R), Dorsalis Pedis (L), Dorsalis Pedis (R), 3+: Carotid (L), Carotid (R), Radial (L), Radial (R) GI/Abdominal: Distended (Slightly distended and tympanitic to percussion.), Abnormal Bowel Sounds (Hyperactive bowel sounds appreciated.), Other (Palpable right and left hemicolon's. Suspect abdominal aortic aneurysm by palpation. Advised further ultrasound as an outpatient to have this checked. This was noted on previous examinations. Unclear to me whether her primary care practitioner has in fact done an ultrasound on her aorta.) Back Exam: Normal Inspection, Full Range of Motion Extremities: Normal Inspection, Normal Range of Motion, Non-Tender, No Pedal Edema Neurological: Alert, Oriented, CN II-XII Intact, Normal Cognition Psychiatric: Anxious Skin Exam: Warm, Dry, Intact, Normal Color, No Rash EKG INTERPRETATION EKG Date: 07/11/19 Time: 11:34 Rhythm: Other (Sinus bradycardia) Rate (Beats/Min): 58 [place]: Normal P-Wave: Enlarged (Suspect left atrial hypertrophy.) QRS: Other (Early R-wave transition suggestive of septal hypertrophy pattern. Borderline criteria for left ventricular hypertrophy.) ST-T: Normal QT: Normal EKG Interpretation Comments: Borderline ECG with no signs of ischemia. Course - Vital Signs Last Recorded V/S: Last Vital Signs Temp 36.6 C 07/11/19 11:31 Pulse 62 07/11/19 11:31 Resp 16 07/11/19 11:31 BP 187/101 H 07/11/19 11:31 Pulse Ox 99 07/11/19 11:31 - Orders/Labs/Meds Orders: Active Orders 24 hr Category Date Time Status EKG Documentation Completion [RC] STAT Care 07/11/19 11:31 Active Labs: Laboratory Tests 07/11/19 Range/Units 11:50 Troponin I < 0.017 (0.00-0.056) ng/mL Lipase 151 (73-393) U/L TSH 3rd Generation 0.737 (0.358-3.74) uIU/mL - Radiology Interpretation Free Text/Narrative:: 63-year-old female presents the ED for the second time this morning now complaining of central chest pain and left arm pain. Apparently was present on the first visit to the ED but it was not brought up in any of our conversations. Her chief complaint was abdominal pain. She was concerned that she has pancreatitis. In fact KUB reveals chronic extensive constipation. She was advised to take Citroma at home 7 ounces mixed with 6 ounces of juice and to start MiraLAX powder 17 g once daily which I have mentions multiple times to her in through the ED on previous visits. She came back an hour later indicating that we had not addressed her chest pain and left arm pain which again was not mentioned to me at the first visit. She will therefore have an ECG performed a chest x-ray and labs including troponin. Her ECG suggests left ventricular hypertrophy pattern and she has known chronic essential hypertension but refused to take medication from the physician. She states she has an [id number] medication that she manages her blood pressure with. Blood pressure is elevated initially was 187/101 and is currently 177/95. Her anxious and therefore I suspect is contributing to elevated blood pressure at this time. - Re-Assessments/Exams Free Text/Narrative Re-Assessment/Exam: 07/11/19 12:08 portable chest x-ray reveals hyperinflated lung burrell. Increased vascularity to both lung bases. No significant cardiomegaly appreciated. Lungs are otherwise clear 07/11/19 13:13 troponin I was less than 0.017. Lipase is normal and TSH was 0.737 which is normal. Patient reassured of the normal findings and discharged home with no change in medications. She prefers not to take ddcg-oec-bihbfoh medications for her blood pressure. It remains elevated at 178/95 at the time of discharge. Departure - Departure Time of Disposition: 13:19 Disposition: Home, Self-Care 01 Reason for Transfer *Q: Other Condition: Good Clinical Impression: Non-cardiac chest pain, Acute chest wall pain Prescriptions: amLODIPine [Norvasc] 10 mg PO DAILY #30 tab Instructions: Nonspecific Chest Pain, [id number] Referrals: Jerson Rosales MD [Primary Care Provider] - Forms: ED Department Discharge Additional Instructions: Evaluation in the emergency room today in regards to central precordial chest pain radiating in towards the left arm. Complete workup with ECG and chest x- ray and lab work shows no evidence of heart related illness. Blood pressure does remain elevated throughout her stay in the emergency department and I would strongly suggest getting on a medication daily to bring your blood pressure under control. I will write a prescription for amlodipine 10 mg tablet once daily to bring your blood pressure under control. She provides 24-hour relief of blood pressure. No abnormal blood pressure should be less than 140 on the top and less than 90 on the bottom number. Of note her thyroid and lipase which is a measurement for pancreatitis was also normal. Sepsis Event Note - Focused Exam Vital Signs: Vital Signs Temp Pulse Resp BP Pulse Ox 07/11/19 11:31 36.6 C 62 16 187/101 H 99 Date Exam was Performed: 07/11/19 Time Exam was Performed: 13:29 - My Orders Last 24 Hours: My Active Orders 07/11/19 11:31 EKG Documentation Completion [RC] STAT - Assessment/Plan Last 24 Hours: My Active Orders 07/11/19 11:31 EKG Documentation Completion [RC] STAT
[2019-07-11 11:36] VITALS: BP 187/101; PULSE 62
--- NOTE | 2019-07-11 12:06 | CR ---
Chest: Portable view of the chest was obtained. Comparison: Prior chest x-ray 04/01/19. Heart size is within normal limits for portable technique. Tortuous thoracic aorta is seen. Lungs are clear with no acute parenchymal change. Bony structures are grossly intact. Impression: 1. Nothing acute is seen on portable chest x-ray. Diagnostic code #2 This report was dictated in [place] Standard Time
== END 2019-07-11 13:41 | disposition home or self-care (01) ==
LOC: JD.ED 11:13
DX: R07.89 Other chest pain (principal); Z88.1 Allergy status to other antibiotic agents; Z91.030 Bee allergy status; Z88.8 Allergy status to other drugs, medicaments and biological substances; Z88.7 Allergy status to serum and vaccine; Z79.899 Other long term (current) drug therapy
CPT/HCPCS: 36415; 71045; 71045-26; 83690; 84443; 84484; 93005; 93010; 99284; 99285-25

== ENCOUNTER 2019-07-26 13:43 | Emergency (ER) | payer MEDICARE, OTHER ==
[2019-07-26 13:58] VITALS: BP 147/89; PULSE 70
--- NOTE | 2019-07-26 14:28 | EDM.PDOC ---
ED HPI GENERAL MEDICAL PROBLEM - General Chief Complaint: Abdominal Pain Stated Complaint: ABDOMINAL PAIN Time Seen by Provider: 07/26/19 14:06 Source of Information: Reports: Patient History Limitations: Reports: No Limitations - History of Present Illness INITIAL COMMENTS - FREE TEXT/NARRATIVE: Patient is a 63-year-old female who presents with complaints of recurrent abdominal pain. She states that this has been going on for years and that it is not any worse than it has been in the past. She states that the pain is worse when she is anxious. Prior to come to the ER she took her daily Xanax and Bentyl and states that the symptoms are better. Patient has been seen numerous times in this emergency department for the same complaints, but states that she has not seen her primary care provider in "quite a while ". She has a history of irritable bowel syndrome with constipation and diarrhea. States that she has been having bowel movements regularly. She has not been taking any stool softeners or laxatives at this time. Denies any vomiting or diarrhea. Abdominal Pain Score (Numeric/FACES): 7 - Related Data Allergies Allergy/AdvReac Type Severity Reaction Status Date / Time amlodipine Allergy Swelling Verified 07/26/19 13:57 amoxicillin Allergy Chest Verified 07/26/19 13:57 Tightness benzocaine Allergy Not Listed Verified 07/26/19 13:57 cortisone Allergy Red Rash Verified 07/26/19 13:57 Influenza Virus Vaccines Allergy Anaphylactic Verified 07/26/19 13:57 Shock venom-honey bee Allergy Redness Verified 07/26/19 13:57 [bee venom (honey bee)] and Swelling Corepivicaine Allergy Not Listed Uncoded 07/11/19 11:35 isocaine 2% w/Levonordefien Allergy Not Listed Uncoded 07/11/19 11:35 1:20K Home Meds: Home Meds ALPRAZolam [Xanax] 0.5 mg PO TID PRN #20 tablet 01/29/19 [Rx] Dicyclomine [Bentyl] 20 mg PO BID PRN 06/05/19 [History] amLODIPine [Norvasc] 10 mg PO DAILY #30 tab 07/11/19 [Rx] polyethylene glycoL 3350 [MiraLAX] 17 gm PO DAILY #1 container 07/11/19 [Rx] Past Medical History HEENT History: Reports: Other (See Below) Other HEENT History: dental history-allergies to numbning medication Cardiovascular History: Reports: Heart Murmur Respiratory History: Reports: None Gastrointestinal History: Reports: GERD, Hiatal Hernia Genitourinary History: Reports: Other (See Below) Other Genitourinary History: Bladder Prolapse 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: , 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 (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) 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 RETAIL 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: uterian prolapse, breast lumptectomy Musculoskeletal History: Reports: None Neurological History: Reports: None Psychiatric History: Reports: Anxiety, Depression, Panic Attack Other Psychiatric History: chronic anxiety Endocrine/Metabolic History: Reports: None Hematologic History: Reports: None Immunologic History: Reports: None Oncologic (Cancer) History: Reports: Other (See Below) Other Oncologic History: benign tumors from breasts removed Dermatologic History: Reports: None - Infectious Disease History Infectious Disease History: Reports: Chicken Pox, Measles, Rubella Other Infectious Disease History: [place] measles. - Past Surgical History Head Surgeries/Procedures: Reports: None HEENT Surgical History: Reports: Oral Surgery Oncologic Surgical History: Reports: Biopsy of Breast Social & Family History - Family History Family Medical History: Noncontributory - Tobacco Use Smoking Status *Q: Never Smoker - Caffeine Use Caffeine Use: Reports: Coffee Other Caffeine Use: natural products - Recreational Drug Use Recreational Drug Use: No - Living Situation & Occupation Living situation: Reports: , Alone Occupation: Unemployed ED ROS GENERAL - Review of Systems Review Of Systems: Comprehensive ROS is negative, except as noted in HPI. ED EXAM, GI/ABD - Physical Exam Exam: See Below Exam Limited By: No Limitations General Appearance: Alert, WD/WN, No Apparent Distress Respiratory/Chest: No Respiratory Distress, Lungs Clear, Normal Breath Sounds, No Accessory Muscle Use, Chest Non-Tender Cardiovascular: Normal Peripheral Pulses, Regular Rate, Rhythm, No Edema, No Gallop, No JVD, No Murmur, No Rub GI/Abdominal Exam: Normal Bowel Sounds, Soft, No Organomegaly, No Distention, No Abnormal Bruit, No Mass, Pelvis Stable, Tender (Mild generalized tenderness throughout the abdomen) Neurological: Alert, Oriented, CN II-XII Intact, Normal Cognition, Normal Gait, Normal Reflexes, No Motor/Sensory Deficits Psychiatric: Normal Affect, Normal Mood Skin Exam: Warm, Dry, Intact, Normal Color, No Rash Course - Vital Signs Last Recorded V/S: Last Vital Signs Temp 98.5 F 02/10/20 13:52 Pulse 70 07/26/19 13:52 Resp 16 07/26/19 13:52 BP 147/89 H 07/26/19 13:52 Pulse Ox 99 07/26/19 13:52 - Re-Assessments/Exams Free Text/Narrative Re-Assessment/Exam: On exam, patient has generalized tenderness throughout the abdomen. No guarding or rebound tenderness present. X-ray of the abdomen shows increased stool throughout the colon. Discussed that she should take magnesium citrate and a daily stool softener as has been recommended on previous visits to the ER. I discussed that she may also use Tums as needed for upset stomach. Recommended that she continue to use her Xanax for her anxiety and that she follow-up with her primary care provider as she may need an adjustment of her medications. Discharge instructions as documented. Departure - Departure Time of Disposition: 15:02 Disposition: Home, Self-Care 01 Condition: Fair Clinical Impression: Abdominal pain, chronic, generalized - Discharge Information *PRESCRIPTION DRUG MONITORING PROGRAM REVIEWED*: No *COPY OF PRESCRIPTION DRUG MONITORING REPORT IN PATIENT LINDA: No Instructions: Abdominal Pain, Adult, [id number] Referrals: Jerson Rosales MD [Primary Care Provider] - Forms: ED Department Discharge Additional Instructions: You were seen in the emergency department today for recurrent abdominal pain that worsens when you are under increased stress. An x-ray of your abdomen did show a significant amount of stool throughout the colon. As we discussed, it is likely that your irritable bowel syndrome as well as constipation is the source of your recurrent abdominal pain. Recommend that you take 8 ounces of magnesium citrate when you get home. Also recommend that you take a daily stool softener like Colace. If you are having acid indigestion, you may use [id number] Tums as needed. I recommend that you call to schedule an appointment with your primary care provider for ongoing monitoring of your symptoms. If you should experience any worsening symptoms, please do not hesitate to return to the emergency department. Sepsis Event Note - Evaluation Sepsis Screening Result: No Definite Risk - Focused Exam Vital Signs: Vital Signs Temp Pulse Resp BP Pulse Ox 07/26/19 13:52 98.5 F 70 16 147/89 H 99 Date Exam was Performed: 07/26/19 Time Exam was Performed: 22:15
--- NOTE | 2019-07-26 15:03 | CR ---
Abdomen: Supine view of the abdomen was obtained. Comparison: Prior abdominal x-ray of 06/25/19. Slight increased stool within the colon is seen. Bowel gas pattern is otherwise unremarkable. No abnormal calcifications or soft tissue abnormality is seen. Bony structures are unremarkable. Impression: 1. Nothing acute slight increased stool within the colon. 2. Supine abdominal x-ray is otherwise unremarkable. Diagnostic code #2 This report was dictated in [place] Standard Time
== END 2019-07-26 15:35 | disposition home or self-care (01) ==
LOC: JD.ED 13:43
DX: R10.84 Generalized abdominal pain (principal); F41.9 Anxiety disorder, unspecified; F32.9 Major depressive disorder, single episode, unspecified; Z88.1 Allergy status to other antibiotic agents; Z91.030 Bee allergy status; Z88.7 Allergy status to serum and vaccine; Z88.8 Allergy status to other drugs, medicaments and biological substances; Z79.899 Other long term (current) drug therapy
CPT/HCPCS: 74018; 74018-26; 99282; 99284-25

== ENCOUNTER 2019-08-18 10:43 | Emergency (ER) | payer MEDICARE, OTHER | END 2019-08-18 11:29 | LOC: JD.ED 10:43 | DX: Z53.21 Procedure and treatment not carried out due to patient leaving prior to being seen by health care provider (principal) ==

== ENCOUNTER 2019-08-19 11:15 | Emergency (ER) | payer MEDICARE, OTHER ==
[2019-08-19 11:52] VITALS: BP 142/88; PULSE 61
== END 2019-08-19 12:36 | disposition left against medical advice (07) ==
LOC: JD.ED 11:15
DX: Z53.21 Procedure and treatment not carried out due to patient leaving prior to being seen by health care provider (principal)
CPT/HCPCS: 81001

== ENCOUNTER 2019-08-21 15:07 | Emergency (ER) | payer MEDICARE, OTHER ==
[2019-08-21 15:25] VITALS: BP 169/109; PULSE 83
--- NOTE | 2019-08-21 16:06 | EDM.PDOC ---
ED HPI GENERAL MEDICAL PROBLEM - General Chief Complaint: Genitourinary Problem Stated Complaint: BLADDER PROLAPSE AND BLEEDING Time Seen by Provider: 08/21/19 15:42 Source of Information: Reports: Patient History Limitations: Reports: No Limitations - History of Present Illness INITIAL COMMENTS - FREE TEXT/NARRATIVE: The patient presents with some abdominal pain and pelvic pain with some hematuria. She has a prolapsed bladder and hiatal hernia. She is getting treatment for them. These are chronic problems. There are no new issues. Onset: Gradual Duration: Week(s): Location: Reports: Abdomen Quality: Reports: Ache Severity: Mild Improves with: Reports: None Worsens with: Reports: None Associated Symptoms: Reports: No Other Symptoms - Related Data Allergies Allergy/AdvReac Type Severity Reaction Status Date / Time amlodipine Allergy Swelling Verified 08/21/19 15:19 amoxicillin Allergy Chest Verified 08/21/19 15:19 Tightness benzocaine Allergy Not Listed Verified 08/21/19 15:19 cortisone Allergy Red Rash Verified 08/21/19 15:19 Influenza Virus Vaccines Allergy Anaphylactic Verified 08/21/19 15:19 Shock venom-honey bee Allergy Redness Verified 08/21/19 15:19 [bee venom (honey bee)] and Swelling Corepivicaine Allergy Not Listed Uncoded 08/21/19 15:19 isocaine 2% w/Levonordefien Allergy Not Listed Uncoded 08/21/19 15:19 1:20K Home Meds: Home Meds Dicyclomine [Bentyl] 5 mg PO BID PRN 06/05/19 [History] ALPRAZolam [Xanax] 0.25 mg PO BID PRN 08/21/19 [History] Past Medical History HEENT History: Reports: Other (See Below) Other HEENT History: dental history-allergies to numbning medication Cardiovascular History: Reports: Heart Murmur Respiratory History: Reports: None Gastrointestinal History: Reports: GERD, Hiatal Hernia Genitourinary History: Reports: Other (See Below) Other Genitourinary History: Bladder Prolapse;blood in urine PASSENGER CONDUCTOR History: Reports: , Other (See Below) Other PASSENGER CONDUCTOR History: uterian prolapse, breast lumptectomy Musculoskeletal History: Reports: None Neurological History: Reports: None Psychiatric History: Reports: Anxiety, Depression, Panic Attack Other Psychiatric History: chronic anxiety Endocrine/Metabolic History: Reports: None Hematologic History: Reports: None Immunologic History: Reports: None Oncologic (Cancer) History: Reports: Other (See Below) Other Oncologic History: benign tumors from breasts removed Dermatologic History: Reports: None - Infectious Disease History Infectious Disease History: Reports: Chicken Pox, Measles, Rubella Other Infectious Disease History: thai measles. - Past Surgical History Head Surgeries/Procedures: Reports: None HEENT Surgical History: Reports: Oral Surgery Oncologic Surgical History: Reports: Biopsy of Breast Social & Family History - Family History Family Medical History: Noncontributory - Tobacco Use Smoking Status *Q: Current Every Day Smoker Years of Tobacco use: 40 Packs/Tins Daily: 0.4 - Caffeine Use Caffeine Use: Reports: Coffee, Soda Other Caffeine Use: natural products - Living Situation & Occupation Living situation: Reports: , Alone Occupation: Unemployed ED ROS GENERAL - Review of Systems Review Of Systems: See Below Constitutional: Reports: No Symptoms HEENT: Reports: No Symptoms Respiratory: Reports: No Symptoms Cardiovascular: Reports: No Symptoms Endocrine: Reports: No Symptoms GI/Abdominal: Reports: Abdominal Pain : Reports: Hematuria Musculoskeletal: Reports: No Symptoms ED EXAM, GI/ABD - Physical Exam Exam: See Below Exam Limited By: No Limitations General Appearance: Alert, No Apparent Distress Ears: Normal External Exam Nose: Normal Inspection Head: Atraumatic, Normocephalic Neck: Normal Inspection Respiratory/Chest: No Respiratory Distress, Lungs Clear, Normal Breath Sounds Cardiovascular: Regular Rate, Rhythm, No Edema, No Murmur GI/Abdominal Exam: Soft, Non-Tender, No Organomegaly, No Mass Back Exam: Normal Inspection Course - Vital Signs Last Recorded V/S: Last Vital Signs Temp 98.7 F 08/21/19 15:19 Pulse 83 08/21/19 15:19 Resp 17 08/21/19 15:19 BP 169/109 H 08/21/19 15:19 Pulse Ox 98 08/21/19 15:19 - Re-Assessments/Exams Free Text/Narrative Re-Assessment/Exam: 08/21/19 16:05 I examined Hillary and there is no new issues. I will discharge her home. Departure - Departure Time of Disposition: 16:05 Disposition: Home, Self-Care 01 Condition: Good Clinical Impression: Chronic abdominal pain - Discharge Information *PRESCRIPTION DRUG MONITORING PROGRAM REVIEWED*: Not Applicable *COPY OF PRESCRIPTION DRUG MONITORING REPORT IN PATIENT LINDA: Not Applicable Referrals: Jerson Rosales MD [Primary Care Provider] - Additional Instructions: Follow up with your doctor and chiropractor. Sepsis Event Note - Evaluation Sepsis Screening Result: No Definite Risk - Focused Exam Vital Signs: Vital Signs Temp Pulse Resp BP Pulse Ox 08/21/19 15:19 98.7 F 83 17 169/109 H 98 Date Exam was Performed: 08/21/19 Time Exam was Performed: 16:02
== END 2019-08-21 16:00 | disposition home or self-care (01) ==
LOC: JD.ED 15:07
DX: R10.9 Unspecified abdominal pain (principal); R31.9 Hematuria, unspecified; F17.210 Nicotine dependence, cigarettes, uncomplicated; Z88.1 Allergy status to other antibiotic agents; Z88.8 Allergy status to other drugs, medicaments and biological substances; Z88.7 Allergy status to serum and vaccine; Z91.030 Bee allergy status
CPT/HCPCS: 99281; 99283

== ENCOUNTER 2019-10-12 16:32 | Emergency (ER) | payer MEDICARE, OTHER ==
[2019-10-12 16:48] VITALS: BP 177/115; PULSE 84
[2019-10-12] MEDS ORDERED: Dicyclomine 10 MG Cap PO ONE (17:02)
--- NOTE | 2019-10-12 17:10 | EDM.PDOC ---
ED HPI GENERAL MEDICAL PROBLEM - General Chief Complaint: Abdominal Pain Stated Complaint: ABDOMINAL PAIN Time Seen by Provider: 10/12/19 16:44 Source of Information: Reports: Patient, Old Records, RN Notes Reviewed History Limitations: Reports: No Limitations - History of Present Illness INITIAL COMMENTS - FREE TEXT/NARRATIVE: Patient is a 63-year-old female who presents to the ED for lower abdominal pain. The patient states that she has pain that she would rated an 8 out of 10 to her "lower colon". Patient notes that the pain is been present for several weeks, but has been worse over the last few days. Patient states that the pain comes and goes, and has not been a constant pain. She states it does not radiated anywhere, and she does not characterize any sort of alleviating or provoking factors. Patient states that she knows she is supposed to be taking a stool softener, that she has not been taking it but did take 1 dose of Colace this morning. Patient does have issues with chronic abdominal pain, and has been given prescriptions of dicyclomine or Bentyl in times past, but the patient cannot remember if she has this at home, but she states she did not take any sort of pain medications at home. The patient notes she is not having any nausea/vomiting/diarrhea, chest pain/shortness of breath/cough. She states that her last bowel movement was at least a few days ago. Patient states that she has somewhat of a decreased appetite, and has not really been eating much at all, she called her primary care provider, and the primary care provider's nurse stated that she should come to the ER, as she "might need an IV". Her primary care provider is Dr. Jerson Soto. Patient denies any sort of abdominal surgeries, or any other complaints at this time. She states that she has not had an appointment with her primary care provider, in quite some time. The patient's weight at today's visit, is 105 pounds, and review of old records from August and July state the same weight, so she has not lost any weight, that would indicate any sort of malnutrition. Lower Abdomen Pain Score (Numeric/FACES): 8 - Related Data Allergies Allergy/AdvReac Type Severity Reaction Status Date / Time amlodipine Allergy Swelling Verified 10/12/19 17:21 amoxicillin Allergy Chest Verified 10/12/19 17:21 Tightness benzocaine Allergy Not Listed Verified 10/12/19 17:21 cortisone Allergy Red Rash Verified 10/12/19 17:21 Influenza Virus Vaccines Allergy Anaphylactic Verified 10/12/19 17:21 Shock venom-honey bee Allergy Redness Verified 10/12/19 17:21 [bee venom (honey bee)] and Swelling Corepivicaine Allergy Not Listed Uncoded 10/12/19 17:21 isocaine 2% w/Levonordefien Allergy Not Listed Uncoded 10/12/19 17:21 1:20K Home Meds: Home Meds Dicyclomine [Bentyl] 5 mg PO BID PRN 06/05/19 [History] ALPRAZolam [Xanax] 0.25 mg PO BID PRN 08/21/19 [History] Past Medical History HEENT History: Reports: Other (See Below) Other HEENT History: dental history-allergies to numbning medication Cardiovascular History: Reports: Heart Murmur Gastrointestinal History: Reports: Chronic Constipation, GERD, Hiatal Hernia Genitourinary History: Reports: Other (See Below) Other Genitourinary History: Bladder Prolapse;blood in urine CREDIT RISK ASSOCIATE History: Reports: , Other (See Below) Other CREDIT RISK ASSOCIATE History: uterine prolapse, breast lumpectomy Psychiatric History: Reports: Anxiety, Depression, Panic Attack - Infectious Disease History Infectious Disease History: Reports: Chicken Pox, Measles Other Infectious Disease History: [place] measles. - Past Surgical History HEENT Surgical History: Reports: Oral Surgery Oncologic Surgical History: Reports: Biopsy of Breast Social & Family History - Family History Family Medical History: Noncontributory - Tobacco Use Smoking Status *Q: Current Every Day Smoker Years of Tobacco use: 45 Packs/Tins Daily: 0.2 - Caffeine Use Caffeine Use: Reports: Coffee, Soda Other Caffeine Use: natural products - Recreational Drug Use Recreational Drug Use: No - Living Situation & Occupation Living situation: Reports: , Alone Occupation: Unemployed ED ROS GENERAL - Review of Systems Review Of Systems: See Below Constitutional: Reports: Decreased Appetite. Denies: Fever, Chills, Weakness, Fatigue, Weight Loss Respiratory: Denies: Shortness of Breath, Cough Cardiovascular: Denies: Chest Pain GI/Abdominal: Reports: Abdominal Pain (lower abdomen pain), Constipation (hasn' t had a normal BM in a "few days"), Decreased Appetite. Denies: Diarrhea, Nausea, Vomiting : Denies: Dysuria, Frequency, Urgency ED EXAM, GI/ABD - Physical Exam Exam: See Below Exam Limited By: No Limitations General Appearance: Alert, No Apparent Distress, Other (pt does appear thin, but from previous exams, she has not had any remarkable weight loss) Eyes: Bilateral: Normal Appearance Ears: Normal External Exam Nose: Normal Inspection Throat/Mouth: Normal Inspection, Normal Lips, Normal Teeth, Normal Gums, Normal Oropharynx, Normal Voice, No Airway Compromise Head: Atraumatic, Normocephalic Neck: Normal Inspection Respiratory/Chest: No Respiratory Distress, Lungs Clear, Normal Breath Sounds, No Accessory Muscle Use, Chest Non-Tender Cardiovascular: Normal Peripheral Pulses, Regular Rate, Rhythm, No Murmur GI/Abdominal Exam: Normal Bowel Sounds, Soft, No Distention, No Mass, Tender ( lower abd pain x 2 quadrants) Extremities: Normal Inspection, Normal Capillary Refill Neurological: Alert, Oriented, Normal Cognition, No Motor/Sensory Deficits Psychiatric: Normal Affect, Normal Mood Skin Exam: Warm, Dry, Intact, Normal Color, No Rash Course - Vital Signs Last Recorded V/S: Last Vital Signs Temp 96.4 F L 10/12/19 16:40 Pulse 84 10/12/19 16:40 Resp 20 10/12/19 16:40 BP 177/115 H 10/12/19 16:40 Pulse Ox 95 10/12/19 16:40 - Orders/Labs/Meds Orders: Active Orders 24 hr Category Date Time Status Abdomen 1V Flat [CR] Stat Exams 10/12/19 17:02 Ordered Magnesium Citrate [Citrate of Magnesia] Med 10/12/19 17:24 Once 296 ml PO ONETIME ONE Meds: Medications Discontinued Medications Generic Name Dose Route Start Last Admin Trade Name Freq PRN Reason Stop Dose Admin Dicyclomine HCl 20 mg 10/12/19 17:02 10/12/19 17:18 Bentyl PO 10/12/19 17:03 20 mg ONETIME ONE Administration - Re-Assessments/Exams Free Text/Narrative Re-Assessment/Exam: 10/12/19 17:11 Patient presents to the ED for evaluation of her abdominal pain. I do suspect this to be constipation in nature, have ordered a KUB x-ray and 20mg dicyclomine for her abdomen pain. 10/12/19 17:24 As suspected, patient's KUB does reveal quite a bit of stool throughout her colon, she will be provided with a bottle of magnesium citrate and explained how to take this at home, and will give her general recommendations have her follow-up with Dr. Soto for any other problems she might have. Departure - Departure Time of Disposition: 17:25 Disposition: Home, Self-Care 01 Condition: Good Clinical Impression: Constipation Qualifiers: Constipation type: unspecified constipation type Qualified Code(s): K59.00 - Constipation, unspecified - Discharge Information *PRESCRIPTION DRUG MONITORING PROGRAM REVIEWED*: No *COPY OF PRESCRIPTION DRUG MONITORING REPORT IN PATIENT LINDA: No Instructions: Probiotics, Constipation, Adult, [id number] Referrals: Jerson Rosales MD [Primary Care Provider] - Forms: ED Department Discharge Additional Instructions: You were seen in the ER today for your lower abdominal pain. An abdominal x-ray was taken at today's visit, demonstrated quite a bit of stool throughout your entire colon, which is consistent with a diagnosis of constipation. You have been given a bottle of magnesium citrate to help relieve the constipation, recommend you drink one half bottle, wait a few hours if you do not have a rather large bowel movement, continue with the last half bottle. As always you should increase your oral fluid intake to stay well-hydrated, and use a stool softener like MiraLAX or Colace in your daily regimen to help keep your stool soft and promote good bowel health. You may use 400 to 600 mg ibuprofen every 6 hours as needed for further pain relief, do not exceed 3200 mg ibuprofen in a 24-hour time span. Recommend you follow-up with your regular care provider as needed for further management of your chronic issues. Sepsis Event Note - Evaluation Sepsis Screening Result: No Definite Risk - Focused Exam Vital Signs: Vital Signs Temp Pulse Resp BP Pulse Ox 10/12/19 16:40 96.4 F L 84 20 177/115 H 95 Date Exam was Performed: 10/12/19 Time Exam was Performed: 17:24 - My Orders Last 24 Hours: My Active Orders 10/12/19 17:02 Abdomen 1V Flat [CR] Stat 10/12/19 17:24 Magnesium Citrate [Citrate of Magnesia] 296 ml PO ONETIME ONE - Assessment/Plan Last 24 Hours: My Active Orders 10/12/19 17:02 Abdomen 1V Flat [CR] Stat 10/12/19 17:24 Magnesium Citrate [Citrate of Magnesia] 296 ml PO ONETIME ONE
[2019-10-12] MEDS ORDERED: Magnesium Citrate Solution 296 ML Bottle PO ONE (17:24)
--- NOTE | 2019-10-13 06:33 | CR ---
Abdomen: Supine view of the abdomen was obtained. Comparison: Prior abdominal x-ray of 07/26/19. Bowel gas pattern appears normal. Soft tissue fullness seen within the abdomen and difficult to exclude pelvic mass or distended bladder. No abnormal calcifications are seen. Bony structures are unremarkable. Impression: 1. Haziness within the pelvis and difficult to exclude pelvic mass or dilated bladder. Consider CT exam or pelvic ultrasound to further evaluate. 2. Supine abdominal x-ray is otherwise unremarkable. Diagnostic code #9 This report was dictated in MDT
== END 2019-10-12 17:30 | disposition home or self-care (01) ==
LOC: JD.ED 16:32
DX: K59.00 Constipation, unspecified (principal); F32.9 Major depressive disorder, single episode, unspecified; F41.0 Panic disorder [episodic paroxysmal anxiety]; F17.210 Nicotine dependence, cigarettes, uncomplicated; Z88.0 Allergy status to penicillin; Z88.7 Allergy status to serum and vaccine; Z91.030 Bee allergy status; Z88.8 Allergy status to other drugs, medicaments and biological substances; Z79.899 Other long term (current) drug therapy
CPT/HCPCS: 74018; 99284; A9270; 99283

== ENCOUNTER 2019-10-20 12:47 | Emergency (ER) | payer MEDICARE, OTHER | END 2019-10-20 13:17 | disposition left against medical advice (07) | LOC: JD.ED 12:47 | DX: Z53.21 Procedure and treatment not carried out due to patient leaving prior to being seen by health care provider (principal) ==

== ENCOUNTER 2019-10-21 15:59 | Emergency (ER) | payer MEDICARE, OTHER ==
[2019-10-21 16:14] VITALS: BP 156/93; PULSE 71
[2019-10-21] MEDS ORDERED: Phenazopyridine 95 MG Tab PO STA (16:38)
--- NOTE | 2019-10-21 17:08 | EDM.PDOC ---
ED HPI GENERAL MEDICAL PROBLEM - General Chief Complaint: Genitourinary Problem Stated Complaint: UNABLE TO VOID Time Seen by Provider: 10/21/19 16:09 Source of Information: Reports: Patient History Limitations: Reports: No Limitations - History of Present Illness INITIAL COMMENTS - FREE TEXT/NARRATIVE: Hillary Rajan is a 63-year-old female who presents the emergency room with chief complaints of inability to void. Was here yesterday at the emergency room and left without being seen for similar symptoms. This morning she got up and was not able to void feels of moderate pressure in her lower pelvic region. She denies any fever, chills, abdominal pain, back pain, chest pain or other ailments. 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 Onset Date: 10/21/19 Onset Time: 09:00 Duration: Getting Worse Location: Reports: Pelvis Quality: Reports: Ache Severity: Mild Improves with: Reports: None Worsens with: Reports: None Associated Symptoms: Denies: Chest Pain, Fever/Chills, Nausea/Vomiting, Shortness of Breath, Weakness Suprapubic Pain Score (Numeric/FACES): 6 - Related Data Allergies Allergy/AdvReac Type Severity Reaction Status Date / Time amlodipine Allergy Swelling Verified 10/12/19 17:21 amoxicillin Allergy Chest Verified 10/12/19 17:21 Tightness benzocaine Allergy Not Listed Verified 10/12/19 17:21 cortisone Allergy Red Rash Verified 10/12/19 17:21 Influenza Virus Vaccines Allergy Anaphylactic Verified 10/12/19 17:21 Shock venom-honey bee Allergy Redness Verified 10/12/19 17:21 [bee venom (honey bee)] and Swelling Corepivicaine Allergy Not Listed Uncoded 10/12/19 17:21 isocaine 2% w/Levonordefien Allergy Not Listed Uncoded 10/12/19 17:21 1:20K Home Meds: Home Meds Dicyclomine [Bentyl] 5 mg PO BID PRN 06/05/19 [History] ALPRAZolam [Xanax] 0.25 mg PO BID PRN 08/21/19 [History] Phenazopyridine HCl [Pyridium] 100 mg PO BID PRN #8 tablet 10/21/19 [Rx] cephALEXin [Keflex] 500 mg PO Q8H #15 cap 10/21/19 [Rx] Past Medical History HEENT History: Reports: Other (See Below) Other HEENT History: dental history-allergies to numbning medication Cardiovascular History: Reports: Heart Murmur Respiratory History: Reports: None Gastrointestinal History: Reports: Chronic Constipation, GERD, Hiatal Hernia Genitourinary History: Reports: Other (See Below) Other Genitourinary History: Bladder Prolapse 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: , 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 (See Below) Other TRAVELING AUDITOR History: uterine prolapse, breast lumpectomy Musculoskeletal History: Reports: None Neurological History: Reports: None Psychiatric History: Reports: Anxiety, Depression, Panic Attack Other Psychiatric History: chronic anxiety Endocrine/Metabolic History: Reports: None Hematologic History: Reports: None Immunologic History: Reports: None Oncologic (Cancer) History: Reports: Other (See Below) Other Oncologic History: benign tumors from breasts removed Dermatologic History: Reports: None - Infectious Disease History Infectious Disease History: Reports: Chicken Pox, Measles Other Infectious Disease History: [place] measles. - Past Surgical History Head Surgeries/Procedures: Reports: None HEENT Surgical History: Reports: Oral Surgery Oncologic Surgical History: Reports: Biopsy of Breast Social & Family History - Family History Family Medical History: Noncontributory - Tobacco Use Smoking Status *Q: Current Every Day Smoker Years of Tobacco use: 30 Packs/Tins Daily: 1 - Caffeine Use Caffeine Use: Reports: Tea Other Caffeine Use: natural products - Living Situation & Occupation Living situation: Reports: , Alone Occupation: Unemployed ED ROS GENERAL - Review of Systems Review Of Systems: See Below Constitutional: Denies: Fever, Chills HEENT: Reports: No Symptoms Respiratory: Denies: Shortness of Breath Cardiovascular: Denies: Chest Pain Endocrine: Reports: No Symptoms GI/Abdominal: Reports: Other (Suprapubic discomfort). Denies: Abdominal Pain, Constipation, Diarrhea : Reports: Urinary Retention. Denies: Discharge Musculoskeletal: Reports: No Symptoms. Denies: Back Pain Skin: Reports: No Symptoms Neurological: Reports: Confusion Psychiatric: Reports: No Symptoms Hematologic/Lymphatic: Reports: No Symptoms Immunologic: Reports: No Symptoms ED EXAM, RENAL/ - Physical Exam Exam: See Below Exam Limited By: No Limitations General Appearance: Alert, WD/WN, No Apparent Distress Respiratory/Chest: No Respiratory Distress, Lungs Clear, Normal Breath Sounds, No Accessory Muscle Use, Chest Non-Tender Cardiovascular: Normal Peripheral Pulses, Regular Rate, Rhythm, No Edema, No Gallop, No JVD, No Murmur, No Rub GI/Abdominal: Normal Bowel Sounds, Soft, Non-Tender, No Organomegaly, No Distention, No Abnormal Bruit, No Mass (Female) Exam: Other (Cystocele) Back Exam: Normal Inspection, Full Range of Motion Extremities: Normal Inspection, Normal Range of Motion, Non-Tender, No Pedal Edema, Normal Capillary Refill Neurological: Alert, Oriented, Normal Cognition, Normal Gait Psychiatric: Normal Affect, Normal Mood Skin Exam: Warm, Dry, Intact, Normal Color, No Rash, Decubitus Lymphatic: No Adenopathy Course - Vital Signs Text/Narrative:: Hillary Bunch is a 3-year-old female who presents the emergency room with chief complaints of inability to void. Came to the emergency room yesterday for similar complaints but left without being seen. This morning she woke up and felt pressure and has not been able to void. Her bladder scan revealed urine retention of 2000 cc. Urinalysis was positive for nitrates. I will discharge home with Keflex for outpatient antibiotic therapy and Pyridium for spasms. I instructed patient to follow-up with her bearing grinder referral was given for Dr. Stovall. To return to the emergency room for any new acute worsening symptoms. Patient verbalized understanding is, plan for discharge. Patient is stable time discharge. Last Recorded V/S: Last Vital Signs Temp 98 F 10/21/19 16:09 Pulse 71 10/21/19 16:09 Resp 16 10/21/19 16:09 BP 156/93 H 10/21/19 16:09 Pulse Ox 98 10/21/19 16:09 - Orders/Labs/Meds Orders: Active Orders 24 hr Category Date Time Status Bladder Scan [RC] ASDIRECTED Care 10/21/19 16:24 Active Urinary Catheter Assessment [RC] ASDIRECTED Care 10/21/19 16:52 Active Urinary Catheter Insertion [Insert Urinary Catheter] [ Care 10/21/19 16:30 Ordered OM.PC] Q24H Labs: Laboratory Tests 10/21/19 Range/Units 16:23 Urine Color Yellow (Yellow) Urine Appearance Slt cloudy H (Clear) Urine pH 7.0 (5.0-8.0) Ur Specific [place] 1.020 (1.005-1.030) Urine Protein Negative (Negative) Urine Glucose (UA) Negative (Negative) Urine Ketones Negative (Negative) Urine Occult Blood Negative (Negative) Urine Nitrite Positive H (Negative) Urine Bilirubin Negative (Negative) Urine Urobilinogen 0.2 (0.2-1.0) Ur Leukocyte Esterase Negative (Negative) Urine RBC 0-5 (0-5) /hpf Urine WBC 5-10 H (0-5) /hpf Ur Squamous Epith Cells 5-10 H (0-5) /hpf Urine Bacteria Many H (FEW) /hpf Urine Mucus Few (FEW) /hpf Meds: Medications Discontinued Medications Generic Name Dose Route Start Last Admin Trade Name Freq PRN Reason Stop Dose Admin Phenazopyridine HCl 95 mg 10/21/19 16:38 10/21/19 16:44 Urinary Pain Relief PO 10/21/19 16:39 95 mg NOW STA Administration Departure - Departure Time of Disposition: 17:21 Disposition: Home, Self-Care 01 Condition: Good Clinical Impression: UTI, Urinary tract infectious disease, Urinary retention Cystocele Qualifiers: Cystocele location: midline Qualified Code(s): N81.11 - Cystocele, midline - Discharge Information Prescriptions: cephALEXin [Keflex] 500 mg PO Q8H #15 cap Phenazopyridine HCl [Pyridium] 100 mg PO BID PRN #8 tablet PRN Reason: bladder spasms Instructions: Acute Urinary Retention, Female, [id number] Referrals: Jerson Rosales MD [Primary Care Provider] - Lucille Rivera MD [Physician] - Forms: ED Department Discharge Additional Instructions: You were seen and evaluated today for inability to eat. Your examination revealed that you have a prolapsed bladder. Your urinalysis revealed a bladder infection. You have been prescribed Keflex for outpatient antibiotic therapy. Take this medication as prescribed. The prescribed Pyridium for bladder spasms. This medication may make your urine turn orange. Follow-up with Dr. Stovall again for further evaluation and treatment of your prolapse of the latter. Turn to the emergency room for any new acute worsening symptoms. Sepsis Event Note - Evaluation Sepsis Screening Result: No Definite Risk - Focused Exam Vital Signs: Vital Signs Temp Pulse Resp BP Pulse Ox 10/21/19 16:09 98 F 71 16 156/93 H 98 Date Exam was Performed: 10/21/19 Time Exam was Performed: 17:17 - My Orders Last 24 Hours: My Active Orders 10/21/19 16:24 Bladder Scan [RC] ASDIRECTED 10/21/19 16:30 Urinary Catheter Insertion [Insert Urinary Catheter] [OM.PC] Q24H 10/21/19 16:52 Urinary Catheter Assessment [RC] ASDIRECTED - Assessment/Plan Last 24 Hours: My Active Orders 10/21/19 16:24 Bladder Scan [RC] ASDIRECTED 10/21/19 16:30 Urinary Catheter Insertion [Insert Urinary Catheter] [OM.PC] Q24H 10/21/19 16:52 Urinary Catheter Assessment [RC] ASDIRECTED
== END 2019-10-21 17:37 | disposition home or self-care (01) ==
LOC: JD.ED 15:59
DX: R33.9 Retention of urine, unspecified (principal); N81.11 Cystocele, midline; N39.0 Urinary tract infection, site not specified; Z91.030 Bee allergy status; F17.210 Nicotine dependence, cigarettes, uncomplicated
CPT/HCPCS: 51798; 81001; 87086; 87186; 99283; A9270

== ENCOUNTER 2019-11-02 10:27 | Emergency (ER) | payer MEDICARE, OTHER | END 2019-11-02 10:51 | LOC: JD.ED 10:27 | DX: Z53.21 Procedure and treatment not carried out due to patient leaving prior to being seen by health care provider (principal) ==

== ENCOUNTER 2019-11-03 09:39 | Emergency (ER) | payer MEDICARE, OTHER ==
[2019-11-03 10:12] VITALS: BP 161/95; PULSE 79
[2019-11-03 11:18] LABS: ACETAMINOPHEN 0 ug/mL (10-30)
--- NOTE | 2019-11-03 11:23 | EDM.PDOCBH ---
ED HPI GENERAL MEDICAL PROBLEM - General Chief Complaint: Behavioral/Psych Stated Complaint: MENTAL HEALTH EVAL Time Seen by Provider: 11/03/19 10:02 Source of Information: Reports: Patient, Other ([facility] Staff) History Limitations: Reports: No Limitations - History of Present Illness INITIAL COMMENTS - FREE TEXT/NARRATIVE: Hillary was brought here by police for medical clearance for commitment. The petition has been filled by her daughter. She was seen at [facility] and sent up here. She has been seen here many times for abdominal pain and anxiety. Adult protective services has been called many times on her because she is not taking care of herself. She was working with [facility] [place] and saw Dr Bautista, pHD and she recommended the patient be committed. She has been confused and he doctor Dr Soto diagnosed her with dementia. She calls her ex- many times in a day. She has not been sleeping. She has not showered in 4 days. She does not buy groceries and does not cook or eat much. She has been anxious. She has been making suicidal comments like "this life isn 't worth living." There is concern by Dr Bautista and her daughter that she cannot take care of herself. Hillary has no complaints such as fever, chills, cough, congestion, runny nose, chest pain, shortness of breath, abdominal pain, nausea or vomiting. She wants to go home and take her medications. I explained what will be happening and that this will go easier and quicker if she cooperates. She understands. Onset: Gradual Duration: Week(s): Severity: Moderate Improves with: Reports: None Worsens with: Reports: None Associated Symptoms: Reports: No Other Symptoms Lower Abdominal Pain Score (Numeric/FACES): 2 - Related Data Allergies Allergy/AdvReac Type Severity Reaction Status Date / Time amlodipine Allergy Swelling Verified 11/03/19 10:12 amoxicillin Allergy Chest Verified 11/03/19 10:12 Tightness benzocaine Allergy Not Listed Verified 11/03/19 10:12 cortisone Allergy Red Rash Verified 11/03/19 10:12 Influenza Virus Vaccines Allergy Anaphylactic Verified 11/03/19 10:12 Shock venom-honey bee Allergy Redness Verified 11/03/19 10:12 [bee venom (honey bee)] and Swelling Corepivicaine Allergy Not Listed Uncoded 11/03/19 10:12 isocaine 2% w/Levonordefien Allergy Not Listed Uncoded 11/03/19 10:12 1:20K Home Meds: Home Meds Dicyclomine [Bentyl] 5 mg PO BID PRN 06/05/19 [History] ALPRAZolam [Xanax] 0.25 mg PO BID PRN 08/21/19 [History] Phenazopyridine HCl [Pyridium] 100 mg PO BID PRN #8 tablet 10/21/19 [Rx] cephALEXin [Keflex] 500 mg PO Q8H #15 cap 10/21/19 [Rx] Ciprofloxacin HCl [Cipro] 500 mg PO Q12H #14 tablet 10/24/19 [Rx] Past Medical History HEENT History: Reports: Other (See Below) Other HEENT History: dental history-allergies to numbning medication Cardiovascular History: Reports: Heart Murmur Respiratory History: Reports: None Gastrointestinal History: Reports: Chronic Constipation, GERD, Hiatal Hernia Genitourinary History: Reports: Other (See Below) Other Genitourinary History: Bladder Prolapse [employer]IC[employer] HELPER History: Reports: , Other (See Below) 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: uterine prolapse, breast lumpectomy Musculoskeletal History: Reports: None Neurological History: Reports: None Psychiatric History: Reports: Anxiety, Depression, Panic Attack Other Psychiatric History: chronic anxiety Endocrine/Metabolic History: Reports: None Hematologic History: Reports: None Immunologic History: Reports: None Oncologic (Cancer) History: Reports: Other (See Below) Other Oncologic History: benign tumors from breasts removed Dermatologic History: Reports: None - Infectious Disease History Infectious Disease History: Reports: None Other Infectious Disease History: central [place]rican measles. - Past Surgical History Head Surgeries/Procedures: Reports: None HEENT Surgical History: Reports: Oral Surgery Oncologic Surgical History: Reports: Biopsy of Breast Social & Family History - Family History Family Medical History: Noncontributory - Tobacco Use Smoking Status *Q: Current Every Day Smoker Years of Tobacco use: 35 Packs/Tins Daily: 1 - Caffeine Use Caffeine Use: Reports: Coffee Other Caffeine Use: natural products - Recreational Drug Use Recreational Drug Use: No - Living Situation & Occupation Living situation: Reports: , Alone Occupation: Unemployed ED ROS GENERAL - Review of Systems Review Of Systems: See Below Constitutional: Reports: No Symptoms HEENT: Reports: No Symptoms Respiratory: Reports: No Symptoms Cardiovascular: Reports: No Symptoms Endocrine: Reports: No Symptoms GI/Abdominal: Reports: No Symptoms : Reports: No Symptoms Musculoskeletal: Reports: No Symptoms Skin: Reports: No Symptoms Neurological: Reports: No Symptoms ED EXAM, BEHAVIORAL HEALTH - Physical Exam Exam: See Below Exam Limited By: No Limitations General Appearance: Alert, No Apparent Distress Ears: Normal External Exam Nose: Normal Inspection Head: Atraumatic, Normocephalic Neck: Normal Inspection Respiratory/Chest: No Respiratory Distress, Lungs Clear, Normal Breath Sounds Cardiovascular: Regular Rate, Rhythm, No Edema, No Murmur GI/Abdominal: Soft, Non-Tender, No Organomegaly, No Mass Back Exam: Normal Inspection Extremities: Normal Inspection COURSE, BEHAVIORAL HEALTH COMP - Course Vital Signs: Last Vital Signs Temp 97.8 F 11/03/19 10:07 Pulse 79 11/03/19 10:07 Resp 18 11/03/19 10:07 BP 161/95 H 11/03/19 10:07 Pulse Ox 97 11/03/19 10:07 Orders, Labs, Meds: Active Orders 24 hr Category Date Time Status Cardiac Monitoring [RC] . DIRECTED Care 11/03/19 10:15 Active CORONAVIRUS COVID-19 DAVIDE [MOLEC] Stat Lab 11/03/19 16:16 Received UA W/MICROSCOPIC [URIN] Stat Lab 11/03/19 10:30 Results Laboratory Tests 11/03/19 11/03/19 11/03/19 Range/Units 10:30 10:30 10:32 WBC 6.11 (3.98-10.04) K/mm3 RBC 5.35 H (3.98-5.22) M/mm3 Hgb 16.8 H (11.2-15.7) gm/dl Hct 49.9 H (34.1-44.9) % MCV 93.3 (79.4-94.8) fl MCH 31.4 (25.6-32.2) pg MCHC 33.7 (32.2-35.5) g/dl RDW Std Deviation 45.3 (36.4-46.3) fL Plt Count 456 H D (182-369) K/mm3 MPV 8.7 L (9.4-12.3) fl Neut % (Auto) 56.1 (34.0-71.1) % Lymph % (Auto) 30.8 (19.3-51.7) % Dade % (Auto) 8.0 (4.7-12.5) % Eos % (Auto) 2.8 (0.7-5.8) Baso % (Auto) 2.1 H (0.1-1.2) % Neut # (Auto) 3.43 (1.56-6.13) K/mm3 Lymph # (Auto) 1.88 (1.18-3.74) K/mm3 Dade # (Auto) 0.49 H (0.24-0.36) K/mm3 Eos # (Auto) 0.17 (0.04-0.36) K/mm3 Baso # (Auto) 0.13 H (0.01-0.08) K/mm3 Sodium (136-145) mEq/L Potassium (3.5-5.1) mEq/L Chloride (98-107) mEq/L Carbon Dioxide (21-32) mEq/L Anion Gap (5-15) BUN (7-18) mg/dL Creatinine (0.55-1.02) mg/dL Est Cr Clr Drug Dosing mL/min Estimated GFR (MDRD) (>60) mL/min BUN/Creatinine Ratio (14-18) Glucose (80-115) mg/dL Calcium (8.5-10.1) mg/dL Total Bilirubin (0.2-1.0) mg/dL AST (15-37) U/L ALT (14-59) U/L Alkaline Phosphatase (46-116) U/L Total Protein (6.4-8.2) g/dl Albumin (3.4-5.0) g/dl Globulin gm/dL Albumin/Globulin Ratio (1-2) TSH 3rd Generation (0.358-3.74) uIU/mL Urine Color Yellow (Yellow) Urine Appearance Slt cloudy H (Clear) Urine pH 7.5 (5.0-8.0) Ur Specific [place] 1.020 (1.005-1.030) Urine Protein Negative (Negative) Urine Glucose (UA) Negative (Negative) Urine Ketones Negative (Negative) Urine Occult Blood Trace-lysed H (Negative) Urine Nitrite Negative (Negative) Urine Bilirubin Negative (Negative) Urine Urobilinogen 0.2 (0.2-1.0) Ur Leukocyte Esterase Negative (Negative) Salicylates (2.8-20) mg/dL Urine Opiates Screen Negative (LWXKYO=505) Ur Buprenorphine Scrn Negative (CUTOFF=10) Ur Oxycodone Screen Negative (UTW0ID=281) Urine Methadone Screen Negative (BPDVWS=446) Ur Propoxyphene Screen Negative (DQUJMW=508) Acetaminophen (10-30) ug/mL Ur Barbiturates Screen Negative (GARZLM=703) Ur Tricyclics Screen Negative (VARESQ=643) Ur Phencyclidine Scrn Negative (CUTOFF=25) Ur Amphetamine Screen Negative (LGUACJ=012) U Methamphetamines Scrn Negative (FRAKLA=102) U Benzodiazepines Scrn Negative (JABDXK=805) U Cocaine Metab Screen Negative (EBFLVY=493) U Marijuana (THC) Screen Negative (CUTOFF=50) Ethyl Alcohol (0.00) gm% 11/03/19 11/03/19 Range/Units 10:32 10:32 WBC (3.98-10.04) K/mm3 RBC (3.98-5.22) M/mm3 Hgb (11.2-15.7) gm/dl Hct (34.1-44.9) % MCV (79.4-94.8) fl MCH (25.6-32.2) pg MCHC (32.2-35.5) g/dl RDW Std Deviation (36.4-46.3) fL Plt Count (182-369) K/mm3 MPV (9.4-12.3) fl Neut % (Auto) (34.0-71.1) % Lymph % (Auto) (19.3-51.7) % Dade % (Auto) (4.7-12.5) % Eos % (Auto) (0.7-5.8) Baso % (Auto) (0.1-1.2) % Neut # (Auto) (1.56-6.13) K/mm3 Lymph # (Auto) (1.18-3.74) K/mm3 Dade # (Auto) (0.24-0.36) K/mm3 Eos # (Auto) (0.04-0.36) K/mm3 Baso # (Auto) (0.01-0.08) K/mm3 Sodium 143 (136-145) mEq/L Potassium 4.1 (3.5-5.1) mEq/L Chloride 107 (98-107) mEq/L Carbon Dioxide 25 (21-32) mEq/L Anion Gap 15.1 H (5-15) BUN 13 (7-18) mg/dL Creatinine 0.7 (0.55-1.02) mg/dL Est Cr Clr Drug Dosing 57.37 mL/min Estimated GFR (MDRD) > 60 (>60) mL/min BUN/Creatinine Ratio 18.6 H (14-18) Glucose 106 (80-115) mg/dL Calcium 8.9 (8.5-10.1) mg/dL Total Bilirubin 0.7 (0.2-1.0) mg/dL AST 20 (15-37) U/L ALT 27 (14-59) U/L Alkaline Phosphatase 66 (46-116) U/L Total Protein 7.0 (6.4-8.2) g/dl Albumin 3.7 (3.4-5.0) g/dl Globulin 3.3 gm/dL Albumin/Globulin Ratio 1.1 (1-2) TSH 3rd Generation 0.709 (0.358-3.74) uIU/mL Urine Color (Yellow) Urine Appearance (Clear) Urine pH (5.0-8.0) Ur Specific [place] (1.005-1.030) Urine Protein (Negative) Urine Glucose (UA) (Negative) Urine Ketones (Negative) Urine Occult Blood (Negative) Urine Nitrite (Negative) Urine Bilirubin (Negative) Urine Urobilinogen (0.2-1.0) Ur Leukocyte Esterase (Negative) Salicylates 0.6 L (2.8-20) mg/dL Urine Opiates Screen (JDXMHQ=983) Ur Buprenorphine Scrn (CUTOFF=10) Ur Oxycodone Screen (DVT0MB=016) Urine Methadone Screen (NONXDT=607) Ur Propoxyphene Screen (PGMRYY=657) Acetaminophen 0 L (10-30) ug/mL Ur Barbiturates Screen (SSQNHI=539) Ur Tricyclics Screen (LSUMFH=628) Ur Phencyclidine Scrn (CUTOFF=25) Ur Amphetamine Screen (VWLMUT=580) U Methamphetamines Scrn (WZRTHM=955) U Benzodiazepines Scrn (DYIBBU=383) U Cocaine Metab Screen (LRZJQQ=899) U Marijuana (THC) Screen (CUTOFF=50) Ethyl Alcohol 0.00 (0.00) gm% Re-Assessment/Re-Exam: I have ordered labs and a urine drug screen. Her CBC and CMP look good. Her TSH is negative. Her urine drug screen is negative. Her salicylates and acetaminophen are negative. I will call [facility] and see if they will accept her. [facility] called back and they cannot take her. Her labs all look good. I called [facility] in [place] and they refused. I called [facility] and they screened her for the [facility]. I talked to Beatriz Salter and she accepted the patient. Departure - Departure Time of Disposition: 17:20 Disposition: Home, Self-Care 01 Condition: Good Clinical Impression: Confusion Depression Qualifiers: Depression Type: other depression Qualified Code(s): F32.89 - Other specified depressive episodes - Discharge Information Referrals: Jerson Rosales MD [Primary Care Provider] - Forms: ED Department Discharge Sepsis Event Note - Evaluation Sepsis Screening Result: No Definite Risk - Focused Exam Vital Signs: Vital Signs Temp Pulse Resp BP Pulse Ox 11/03/19 10:07 97.8 F 79 18 161/95 H 97 Date Exam was Performed: 11/03/19 Time Exam was Performed: 17:18 - My Orders Last 24 Hours: My Active Orders 11/03/19 10:15 Cardiac Monitoring [RC] . DIRECTED 11/03/19 10:30 UA W/MICROSCOPIC [URIN] Stat 11/03/19 16:16 CORONAVIRUS COVID-19 DAVIDE [MOLEC] Stat - Assessment/Plan Last 24 Hours: My Active Orders 11/03/19 10:15 Cardiac Monitoring [RC] . DIRECTED 11/03/19 10:30 UA W/MICROSCOPIC [URIN] Stat 11/03/19 16:16 CORONAVIRUS COVID-19 DAVIDE [MOLEC] Stat
--- NOTE | 2019-11-03 14:39 | CT ---
Head CT Technique: Multiple axial sections through the brain were obtained. Intravenous contrast was not utilized. Comparison: Prior head CT study of 10/08/17. Findings: Ventricles along with basal cisterns and sulci over the convexities are mildly prominent. No abnormal parenchymal densities are seen. No evidence of intracranial hemorrhage. No midline shift or mass-effect is seen. Atherosclerotic calcification is seen within the carotid siphon. Bone window settings were reviewed. No acute calvarial finding is appreciated. No acute paranasal sinus findings are mastoid sinus findings are seen. Impression: 1. Mild senescent change. 2. No acute intracranial abnormality is appreciated. Diagnostic code #2 This report was dictated in MDT
== END 2019-11-03 17:30 | disposition home or self-care (01) ==
LOC: JD.ED 09:39
DX: F32.89 Other specified depressive episodes (principal); R41.0 Disorientation, unspecified; F17.210 Nicotine dependence, cigarettes, uncomplicated; Z88.1 Allergy status to other antibiotic agents; Z88.8 Allergy status to other drugs, medicaments and biological substances; Z91.030 Bee allergy status; Z88.6 Allergy status to analgesic agent; Z79.899 Other long term (current) drug therapy
CPT/HCPCS: 36415; 70450; 80053; 80306; 80307; 81001; 84443; 85025; 99284; U0002